=== PATIENT | female | born 1930 | race Caucasian/White ===

== ENCOUNTER 2017-07-01 23:31 | Inpatient (IN) | payer MEDICARE ==
[~2017-07-01] VITALS: Ht 157.5 cm; Wt 62.0 kg
[~2017-07-01 23:31] MED LIST: COUM2TAB PO; DIOV320T PO; ENOX60P SQ; GLUC250C5 PO; LABE100T2 PO; LEVO.05 PO; OXYC-360 PO; SPIRCAP INH; TAB-TAB PO; TYLE500T PO
[2017-07-01 23:45] VITALS: O2SAT 98
[2017-07-01] MEDS ORDERED: SODIUM CHLORIDE 0.9% FLUSH 10 ML FLUSH IVF PRN (23:45)
[2017-07-01] MEDS ORDERED: methylPREDNISolone SOD SUCC 125 MG/2 ML VIAL IV PUSH ONE (23:45)
--- NOTE | 2017-07-01 23:45 | PD ---
HPI Chief Complaint: Shortness of breath Time Seen by Provider: 23:39 Travel History International Travel<30 days: No Contact w/Intl Traveler<30days: No Traveled to known affect area: No History of Present Illness HPI 86-year-old female presents to the emergency department by private transportation after visiting an urgent care and identifying that she had low O2 saturation. Patient has history of COPD. Patient does not smoke cigarettes. Patient states that she felt perfectly well earlier in the week and until yesterday when she started noticing cough and congestion. Patient today noticed increased cough and congestion and increased shortness of breath. Patient denies chest pain. Patient denies lower extremity pain or swelling. Patient notes respiratory distress at rest as well as with exertion. No hemoptysis no hematemesis no coffee-ground emesis denies abdominal pain or back pain and no referred neck jaw shoulder arm pain. Patient states she does not use supplemental oxygen and does not have a rescue inhaler at home. No report of recent long distance travel or protracted bedrest or surgery. No history of clotting disorder. Prior history of breast cancer with right mastectomy. Patient noted in triage to have room air O2 saturations in the low 80s with work of breathing. PFSH Past Medical History Narrative Medical COPD, breast ca, endometrial ca htn, pe(2010); no tobacco use; nursing notes reviewed Arthritis: Yes Asthma: No Depression: Yes Heart Rhythm Problems: No Cancer: Yes (BREAST) Cardiovascular Problems: No High Cholesterol: No Chest Pain: No Congestive Heart Failure: No COPD: Yes Diabetes: No Endocrine: Yes Glaucoma: No Genitourinary: No Hepatitis: No Hiatal Hernia: No Hypertension: Yes Immune Disorder: No Musculoskeletal: Yes Neurologic: No Psychiatric: Yes Reproductive: No Respiratory: Yes (SOB COPD) Radiation Therapy: Yes (LAST YEAR 2009) Sleep Apnea: No Thyroid Disease: Yes (HYPOTHYROIDISM) Menopausal: Yes Past Surgical History Abdominal Surgery: No Cardiac Surgery: No Section: Yes Ear Surgery: No Endocrine Surgery: No Eye Surgery: Yes (ZINA CATARACT EXTRACTION) Genitourinary Surgery: No Gynecologic Surgery: Yes (C SECTION) Oral Surgery: No Pacemaker: No Thoracic Surgery: Yes (BILATERAL BREAST LUMPECTOMY) Other Surgery: Yes Social History Alcohol Use: Yes (WINE 1 OR 2 GLASSES) Tobacco Use: No Substance Use: No Allergies-Medications (Allergen,Severity, Reaction): Coded Allergies: allopurinol (Unverified Allergy, Severe, RASH; SKIN PEELING, 01/10/17) coconut (Unverified Allergy, Severe, RESP DISTRESS, 01/10/17) levothyroxine (Unverified Allergy, Severe, ALLERGIC TO "GENERIC' SYNTHROID , 01/10/17) levothyroxine sodium (Unverified Allergy, Severe, ALLERGIC TO "GENERIC' SYNTHROID, 01/10/17) penicillin G (Unverified Allergy, Severe, RASH, 01/10/17) tetanus toxoid, adsorbed (Unverified Allergy, Severe, 01/10/17) Uncoded Allergies: DILL (Allergy, Severe, 05/18/11) Reported Meds & Prescriptions Reported Meds & Active Scripts Active Reported Biotin 5 Mg Cap 5 Mg PO DAILY Clonidine 168 HR Patch (Clonidine HCl) 0.2 Mg/24 Hr Patch 1 Patch T-DERMAL Q7D Labetalol (Labetalol HCl) 100 Mg Tab 100 Mg PO DAILY Warfarin 2 Mg Tab 2 Mg PO DAILY Synthroid (Levothyroxine Sodium) 50 Mcg Tab 50 Mcg PO DAILY Spiriva Respimat Inh (Tiotropium Inh) 1.25 Mcg/Act Aero 2 Puff INH DAILY 1.25 mcg = 1 inhalation Diovan (Valsartan) 320 Mg Tab 320 Mg PO DAILY Review of Systems Except as stated in HPI: all other systems reviewed are Neg Physical Exam Narrative GENERAL: Thin frail elderly female in obvious respiratory distress his room air O2 saturation 81% placed transiently on nonrebreather mask transition to night nasal cannula while awaiting BiPAP placement SKIN: Warm and dry. HEAD: Normocephalic. EYES: No scleral icterus. No injection or drainage. NECK: Supple, trachea midline. No JVD or lymphadenopathy. CARDIOVASCULAR: Increased regular rate and rhythm without murmurs, gallops, or rubs. RESPIRATORY: Breath sounds equal bilaterally, diminished bilaterally with accessory muscle use. GASTROINTESTINAL: Abdomen soft, non-tender, nondistended. MUSCULOSKELETAL: No cyanosis, trace to 1+ bilateral ankle edema. BACK: Nontender without obvious deformity. No CVA tenderness. Data Data Last Documented VS Vital Signs Date Time Temp Pulse Resp B/P (MAP) Pulse Ox O2 Delivery O2 Flow Rate FiO2 07/02/17 01:10 98 Nasal Cannula 3.00 07/02/17 01:02 94 31 165/89 (114) 35 Orders Orders Complete Blood Count With Diff (07/01/17 23:39) Comprehensive Metabolic Panel (07/01/17 23:39) B-Type Natriuretic Peptide (07/01/17 23:39) Act Partial Throm Time (Ptt) (07/01/17 23:39) Prothrombin Time / Inr (Pt) (07/01/17 23:39) Magnesium (Mg) (07/01/17 23:39) Ckmb (Isoenzyme) Profile (07/01/17 23:39) Troponin I (07/01/17 23:39) Urinalysis - C+S If Indicated (07/01/17 23:39) Influenzae A/B Antigen (07/01/17 23:39) Blood Culture (07/01/17 23:39) Iv Access Insert/Monitor (07/01/17 23:39) Electrocardiogram (07/01/17 23:39) Ecg Monitoring (07/01/17 23:39) Oximetry (07/01/17 23:39) Oxygen Administration (07/01/17 23:39) Chest, Single Ap (07/01/17 23:39) Sodium Chloride 0.9% Flush (Ns Flush) (07/01/17 23:45) Methylprednisolone So Succ Inj (Solumedr (07/01/17 23:45) Albuterol-Ipratropium Neb (Duoneb Neb) (07/01/17 23:45) Resp Bipap / Cpap Non Invas Vt (07/01/17 ) Furosemide Inj (Lasix Inj) (07/02/17 01:30) CKMB (07/02/17 00:10) CKMB% (07/02/17 00:10) Aspirin Chew (Aspirin Chew) (07/02/17 01:45) Nitroglycerin 2% Oint (Nitroglycerin 2% (07/02/17 01:45) Labs Laboratory Tests Test 07/02/17 00:10 White Blood Count 12.1 TH/MM3 Red Blood Count 4.01 MIL/MM3 Hemoglobin 13.5 GM/DL Hematocrit 39.8 % Mean Corpuscular Volume 99.2 FL Mean Corpuscular Hemoglobin 33.6 PG Mean Corpuscular Hemoglobin Concent 33.9 % Red Cell Distribution Width 13.5 % Platelet Count 184 TH/MM3 Mean Platelet Volume 10.6 FL Neutrophils (%) (Auto) 95.0 % Lymphocytes (%) (Auto) 2.9 % Monocytes (%) (Auto) 2.0 % Eosinophils (%) (Auto) 0.0 % Basophils (%) (Auto) 0.1 % Neutrophils # (Auto) 11.5 TH/MM3 Lymphocytes # (Auto) 0.4 TH/MM3 Monocytes # (Auto) 0.2 TH/MM3 Eosinophils # (Auto) 0.0 TH/MM3 Basophils # (Auto) 0.0 TH/MM3 CBC Comment AUTO DIFF Prothrombin Time 15.0 SEC Prothromb Time International Ratio 1.5 RATIO Activated Partial Thromboplast Time 32.4 SEC Blood Urea Nitrogen 30 MG/DL Creatinine 1.90 MG/DL Random Glucose 230 MG/DL Total Protein 7.0 GM/DL Albumin 3.5 GM/DL Calcium Level 8.5 MG/DL Magnesium Level 2.2 MG/DL Alkaline Phosphatase 71 U/L Aspartate Amino Transf (AST/SGOT) 31 U/L Alanine Aminotransferase (ALT/SGPT) 21 U/L Total Bilirubin 0.7 MG/DL Sodium Level 135 MEQ/L Potassium Level 5.1 MEQ/L Chloride Level 100 MEQ/L Carbon Dioxide Level 22.7 MEQ/L Anion Gap 12 MEQ/L Estimat Glomerular Filtration Rate 25 ML/MIN Total Creatine Kinase 112 U/L Troponin I 1.89 NG/ML B-Type Natriuretic Peptide 3291 PG/ML [facility] Medical Decision Making Medical Screen Exam Complete: Yes Emergency Medical Condition: Yes Medical Record Reviewed: Yes Interpretation(s) EKG: Sinus tachycardia rate 110 rare PVC nonspecific T-wave changes no acute ST elevation artifact is present at baseline Vital Signs Date Time Temp Pulse Resp B/P (MAP) Pulse Ox O2 Delivery O2 Flow Rate FiO2 07/02/17 01:02 94 31 165/89 (114) 100 BiPAP 35 07/01/17 23:55 96 BiPAP 35 07/01/17 23:55 35 91 Nasal Cannula 4.00 07/01/17 23:48 104 35 81 07/01/17 23:45 98 35 CBC & BMP Diagram 07/02/17 00:10 Albumin 3.5, Calcium Level 8.5, Magnesium Level 2.2, Aspartate Amino Transf (AST /SGOT) 31, Alanine Aminotransferase (ALT/SGPT) 21 troponin I: 1.89, elevated BNP: 3291, elevated; ck: 112, wnl, mb: 6.3, elevated with mb%: 5.6% elevated Differential Diagnosis Acute respiratory distress, hypoxemia, exacerbation COPD, CHF, pneumonia, Narrative Course Patient placed on manager cardiac cath with continuous pulse oximetry with supplemental oxygen;DuoNeb updrafts 3 ordered along with Solu-Medrol and BiPAP patient placed on manager cardiac cath with continuous pulse oximetry and supplemental oxygen awaiting placement of BiPAP support; Solu-Medrol, DuoNeb updrafts ordered. At 1:27 AM patient is symptomatically improved after updraft treatments has been taken off of BiPAP on supplemental oxygen at this time tolerating nasal cannula well; cxr cm with bibasilar airspace changes; lasix ordered 1:45 AM patient is informed of abnormal troponin and BMP results denies any shortness of breath chest discomfort or choking at this time. Patient relays at this time that last evening/Monday evening she did have a choking sensation overnight which made it difficult for her to sleep but this resolved no report of sweats nausea vomiting or referred neck jaw neck shoulder arm pain or abdominal pain with episode of choking. Patient states she will actually was not choking just had that sensation. Patient has had a cold 2 days and states she continues to have cold symptoms today but presently has no choking sensation of chest pain and no shortness of breath just feels a little congested in her sinuses. Patient denies any fever or chills. Patient has been informed that her cardiac enzymes and BMP is elevated consistent with a NST OTIS and congestive heart failure as well as exacerbation of her COPD and will require admission. Patient has not seen a lab support tech in over 5 years and is never had a stress test or cardiac catheterization; she just saw her plsql developer within the past several weeks and was told everything was 'okay' and saw her primary care provider and was informed that everything was 'okay' according to the patient. Patient is continued on Coumadin therapy due to prior pulmonary embolism approximately 5 years ago. Physician Communication Physician Communication call placed to [facility] service ---discussed with Dr Mcclain Diagnosis Primary Impression: Non-ST elevation GA (NSTEMI) Additional Impressions: CHF (congestive heart failure) Acute exacerbation of COPD with asthma Admitting Information Admitting Physician Requests: Admit Keesha Napier MD Jul 01, 2017 23:45
[2017-07-01 23:48] VITALS: PULSE 104; RESP 35; O2SAT 81
[2017-07-02] VITALS (29 sets, daily range): BP systolic 108–183; BP diastolic 63–115; PULSE 77–136; RESP 16–33; TEMP 97.4–99.1; O2SAT 89–100
[2017-07-02] MEDS ORDERED: TIOT1AER2 INH (00:08)
[2017-07-02] MEDS ORDERED: LEVO.05 PO (00:08)
[2017-07-02] MEDS ORDERED: LABE100T2 PO (00:08)
[2017-07-02] MEDS ORDERED: DIOV320T PO (00:08)
[2017-07-02] MEDS ORDERED: CLON0.2D T-DERMAL (00:08)
[2017-07-02] MEDS ORDERED: WARF4TAB51 PO (00:08)
[2017-07-02] MEDS ORDERED: BIOTCAP PO (00:08)
[2017-07-02] MEDS: RESP: ALBUTEROL 2.5 MG/IPRATROPIUM 0.5 MG NEB (SCH) INH ×4 (00:30→19:49)
--- NOTE | 2017-07-02 00:34 | RADRPT ---
EXAM DATE/TIME: 07/02/2017 00:03 [facility] COMPARISON: CHEST PA & LAT, September 25, 2010, 8:39. EXTERNAL COMPARISON : [facility] [place] INDICATIONS : Shortness of breath. MEDICAL HISTORY : Chronic obstructive pulmonary disease. SURGICAL HISTORY : None. ENCOUNTER: Initial ACUITY: 1 day PAIN SCORE: 0/10 LOCATION: Bilateral chest FINDINGS: Cardiomegaly. There are no effusions. There is aortic calcification and patchy bilateral basilar airs pace disease. CONCLUSION: Basilar airspace disease is noted. Ciro Lau MD on July 02, 2017 at 0:32 Board Certified Radiologist. This report was verified electronically.
[2017-07-02 00:59] LABS: AUTOMATED NEUTROPHIL # 11.5 TH/MM3 (1.8-7.7); BASOPHIL % 0.1 % (0.0-2.0); HEMATOCRIT 39.8 % (35.0-46.0); HEMOGLOBIN 13.5 GM/DL (11.6-15.3); LYMPH % 2.9 % (9.0-44.0); LYMPHOCYTE # 0.4 TH/MM3 (1.0-4.8); MEAN CELL VOLUME 99.2 FL (80.0-100.0); MEAN CORPUSCULAR HEMOGLOBIN 33.6 PG (27.0-34.0); MEAN CORPUSCULAR HGB CONC 33.9 % (32.0-36.0); MEAN PLATELET VOLUME 10.6 FL (7.0-11.0); MONOCYTE # 0.2 TH/MM3 (0-0.9); PLATELET COUNT 184 TH/MM3 (150-450); RED BLOOD COUNT 4.01 MIL/MM3 (4.00-5.30); RED CELL DISTRIBUTION WIDTH 13.5 % (11.6-17.2); WHITE BLOOD COUNT 12.1 TH/MM3 (4.0-11.0)
[2017-07-02 01:08] LABS: INTERNATIONAL NORMALIZED RATIO 1.5 RATIO
[2017-07-02 01:26] LABS: ALBUMIN 3.5 GM/DL (3.4-5.0); ALT (GPT) 21 U/L (10-53); AST (GOT) 31 U/L (15-37); BICARBONATE 22.7 MEQ/L (21.0-32.0); BLOOD UREA NITROGEN 30 MG/DL (7-18); CALCIUM 8.5 MG/DL (8.5-10.1); CHLORIDE 100 MEQ/L (98-107); GLOMERULAR FILTRATION RATE 25 ML/MIN (>89); GLUCOSE,RANDOM 230 MG/DL (74-106); MAGNESIUM 2.2 MG/DL (1.5-2.5); SODIUM (NA) 135 MEQ/L (136-145)
[2017-07-02 01:30] LABS: ALKALINE PHOSPHATASE 71 U/L (45-117); TOTAL BILIRUBIN ADULT 0.7 MG/DL (0.2-1.0)
[2017-07-02] MEDS ORDERED: FUROSEMIDE 40 MG/4 ML VIAL IV PUSH ONE (01:30)
[2017-07-02 01:38] LABS: TROPONIN I 1.89 NG/ML (0.02-0.05)
[2017-07-02] MEDS ORDERED: NITROGLYCERIN 2% OINT 1 GM PACKET TOPICAL ONE (01:45)
[2017-07-02] MEDS ORDERED: ASPIRIN 81 MG CHEW TAB CHEW ONE (01:45)
[2017-07-02] MEDS ORDERED: HEPARIN SODIUM - IV 10,000 UNITS/10 ML VIAL IV PUSH ONE (02:00)
[2017-07-02] MEDS ORDERED: NALOXONE HCL 0.4 MG/ML AMP IV PUSH PRN (02:00)
[2017-07-02] MEDS ORDERED: BISACODYL 10 MG SUPP RECTAL PRN (02:00)
[2017-07-02] MEDS ORDERED: LACTULOSE SYRUP 20 GM/30 ML CUP PO PRN (02:00)
[2017-07-02] MEDS ORDERED: SODIUM CHLORIDE 0.9% FLUSH 10 ML FLUSH IV FLUSH PRN (02:00)
[2017-07-02] MEDS ORDERED: ONDANSETRON HCL 4 MG/2 ML VIAL IVP PRN (02:00)
[2017-07-02] MEDS ORDERED: MAGNESIUM HYDROXIDE SUSP 30 ML CUP PO PRN (02:00)
[2017-07-02] MEDS ORDERED: SENNOSIDES 8.6 MG TAB PO PRN (02:00)
[2017-07-02] MEDS ORDERED: ACETAMINOPHEN 325 MG TAB PO PRN (02:00)
[2017-07-02] MEDS: HEPARIN-D5W 25,000 U/250 ML 250 ML IV PRN (02:43)
--- NOTE | 2017-07-02 02:56 | HHI.HP ---
HPI Service [facility] Primary Care Physician Tayo Messer M.D. Admission Diagnosis nstemi; chf; exac copd Diagnoses: Travel History International Travel<30 Days: No Contact w/Intl Traveler <30 Da: No Traveled to Known Affected Are: No History of Present Illness 86-year-old female with past medical history significant for COPD, hypertension , history of PE in 2010, history of breast cancer and current stage IA endometrial cancer presents to the emergency department for evaluation of shortness of breath. The patient reports that she caught a cold on Monday and has been having difficulty breathing since that time. Today she felt her shortness of breath worsened to the point where she couldn't breathe. She also felt weak and dizzy., The patient reports she had a choking sensation that awoken her from sleep. She denies any associated chest pain. Has a nonproductive cough. Positive bilateral lower extremity edema which is chronic. Review of Systems Except as stated in HPI: all other systems reviewed are Neg Past Family Social History Past Medical History COPD Hypertension PE in 2010, anticoagulated on Coumadin History of breast cancer History of endometrial cancer Past Surgical History Bilateral cataracts Hysterectomy Right mastectomy 2 Reported Medications Reported Meds & Active Scripts Active Reported Biotin 5 Mg Cap 5 Mg PO DAILY Clonidine 168 HR Patch (Clonidine HCl) 0.2 Mg/24 Hr Patch 1 Patch T-DERMAL Q7D Labetalol (Labetalol HCl) 100 Mg Tab 100 Mg PO DAILY Warfarin 2 Mg Tab 2 Mg PO DAILY Synthroid (Levothyroxine Sodium) 50 Mcg Tab 50 Mcg PO DAILY Spiriva Respimat Inh (Tiotropium Inh) 1.25 Mcg/Act Aero 2 Puff INH DAILY 1.25 mcg = 1 inhalation Diovan (Valsartan) 320 Mg Tab 320 Mg PO DAILY Allergies: Coded Allergies: allopurinol (Unverified Allergy, Severe, RASH; SKIN PEELING, 01/10/17) coconut (Unverified Allergy, Severe, RESP DISTRESS, 01/10/17) levothyroxine (Unverified Allergy, Severe, ALLERGIC TO "GENERIC' SYNTHROID , 01/10/17) levothyroxine sodium (Unverified Allergy, Severe, ALLERGIC TO "GENERIC' SYNTHROID, 01/10/17) penicillin G (Unverified Allergy, Severe, RASH, 01/10/17) tetanus toxoid, adsorbed (Unverified Allergy, Severe, 01/10/17) Uncoded Allergies: DILL (Allergy, Severe, 05/18/11) Family History Father with CAD Social History Occasional alcohol. Remote history of smoking. Denies illicit drugs. Physical Exam Vital Signs Vital Signs Date Time Temp Pulse Resp B/P (MAP) Pulse Ox O2 Delivery O2 Flow Rate FiO2 07/02/17 01:10 98 Nasal Cannula 3.00 07/02/17 01:02 94 31 165/89 (114) 100 BiPAP 35 07/01/17 23:55 96 BiPAP 35 07/01/17 23:55 35 91 Nasal Cannula 4.00 07/01/17 23:48 104 35 81 07/01/17 23:45 98 35 Physical Exam GENERAL: female lying in bed SKIN: No rashes, ecchymoses or lesions. Cool and dry. HEAD: Atraumatic. Normocephalic. No temporal or scalp tenderness. EYES: Pupils equal round and reactive. Extraocular motions intact. No scleral icterus. No injection or drainage. ENT: Nose without bleeding, purulent drainage or septal hematoma. Throat without erythema, tonsillar hypertrophy or exudate. Uvula midline. Airway patent. NECK: Trachea midline. No JVD or lymphadenopathy. Supple, nontender, no meningeal signs. CARDIOVASCULAR: Regular rate and rhythm without murmurs, gallops, or rubs. RESPIRATORY: Crackles and wheezes on the left GASTROINTESTINAL: Abdomen soft, non-tender, nondistended. No hepato-splenomegaly , or palpable masses. No guarding. MUSCULOSKELETAL: Extremities without clubbing, cyanosis, or edema. No joint tenderness, effusion, or edema noted. No calf tenderness. NEUROLOGICAL: Awake and alert. Cranial nerves II through XII intact. Motor and sensory grossly within normal limits. Normal speech. Laboratory Laboratory Tests Test 07/02/17 00:10 White Blood Count 12.1 Red Blood Count 4.01 Hemoglobin 13.5 Hematocrit 39.8 Mean Corpuscular Volume 99.2 Mean Corpuscular Hemoglobin 33.6 Mean Corpuscular Hemoglobin Concent 33.9 Red Cell Distribution Width 13.5 Platelet Count 184 Mean Platelet Volume 10.6 Neutrophils (%) (Auto) 95.0 Lymphocytes (%) (Auto) 2.9 Monocytes (%) (Auto) 2.0 Eosinophils (%) (Auto) 0.0 Basophils (%) (Auto) 0.1 Neutrophils # (Auto) 11.5 Lymphocytes # (Auto) 0.4 Monocytes # (Auto) 0.2 Eosinophils # (Auto) 0.0 Basophils # (Auto) 0.0 CBC Comment AUTO DIFF Differential Comment AUTO DIFF CONFIRMED Platelet Estimate NORMAL Platelet Morphology Comment CLUMPED Prothrombin Time 15.0 Prothromb Time International Ratio 1.5 Activated Partial Thromboplast Time 32.4 Blood Urea Nitrogen 30 Creatinine 1.90 Random Glucose 230 Total Protein 7.0 Albumin 3.5 Calcium Level 8.5 Magnesium Level 2.2 Alkaline Phosphatase 71 Aspartate Amino Transf (AST/SGOT) 31 Alanine Aminotransferase (ALT/SGPT) 21 Total Bilirubin 0.7 Sodium Level 135 Potassium Level 5.1 Chloride Level 100 Carbon Dioxide Level 22.7 Anion Gap 12 Estimat Glomerular Filtration Rate 25 Total Creatine Kinase 112 Creatine Kinase MB 6.3 Troponin I 1.89 B-Type Natriuretic Peptide 3291 Date/Time Source Procedure Growth Status 07/02/17 00:15 Blood Peripheral Aerobic Blood Culture Pending Received 07/02/17 00:15 Blood Peripheral Anaerobic Blood Culture Pending Received 07/02/17 01:30 Nasal Washing Influenza Types A,B Antigen (JOSE) - Final NEGATIVE FOR FLU A AND B ANTIGEN.... Complete Result Diagram: 07/02/17 0010 07/02/17 0010 Caprini VTE Risk Assessment Caprini VTE Risk Assessment: Mod/High Risk (score >= 2) Caprini Risk Assessment Model Point Value = 1 Point Value = 2 Point Value = 3 Point Value = 5 Age 41-60 Minor surgery BMI > 25 kg/m2 Swollen legs Varicose veins or History of unexplained or recurrent spontaneous Oral contraceptives or hormone replacement Sepsis (< 1 month) Serious lung disease, including pneumonia (< 1 month) Abnormal pulmonary function Acute myocardial infarction Congestive heart failure (< 1 month) History of inflammatory bowel disease Medical patient at bed rest Age 61-74 Arthroscopic surgery Major open surgery (> 45 min) Laparoscopic surgery (> 45 min) Malignancy Confined to bed (> 72 hours) Immobilizing plaster cast Central venous access Age >= 75 History of VTE Family history of VTE Factor V Leiden Prothrombin [id number] Lupus anticoagulant Anticardiolipin antibodies Elevated serum homocysteine Heparin-induced thrombocytopenia Other congenital or acquired thrombophilia Stroke (< 1 month) Elective arthroplasty Hip, pelvis, or leg fracture Acute spinal cord injury (< 1 month) Prophylaxis Regimen Total Risk Factor Score Risk Level Prophylaxis Regimen 0-1 Low Early ambulation 2 Moderate Order ONE of the following: *Sequential Compression Device (SCD) *Heparin 5000 units SQ BID 3-4 Higher Order ONE of the following medications: *Heparin 5000 units SQ TID *Enoxaparin/Lovenox 40 mg SQ daily (WT < 150 kg, CrCl > 30 mL/min) *Enoxaparin/Lovenox 30 mg SQ daily (WT < 150 kg, CrCl > 10-29 mL/min) *Enoxaparin/Lovenox 30 mg SQ BID (WT < 150 kg, CrCl > 30 mL/min) AND/OR *Sequential Compression Device (SCD) 5 or more Highest Order ONE of the following medications: *Heparin 5000 units SQ TID (Preferred with Epidurals) *Enoxaparin/Lovenox 40 mg SQ daily (WT < 150 kg, CrCl > 30 mL/min) *Enoxaparin/Lovenox 30 mg SQ daily (WT < 150 kg, CrCl > 10-29 mL/min) *Enoxaparin/Lovenox 30 mg SQ BID (WT < 150 kg, CrCl > 30 mL/min) AND *Sequential Compression Device (SCD) Assessment and Plan Assessment and Plan Assessment/plan: 1. NSTEMI Troponin 1.89 EKG showed sinus tachycardia, pulse 109, no ST segment elevations or depressions , personally reviewed Heparin drip Cardiology consulted, appreciate recommendations 2. CHF exacerbation BNP 3291 Positive lower extremity edema/SOB Supplemental O2 prn IV Lasix 3. History of PE Patient anticoagulated on Coumadin, INR currently subtherapeutic at 1.5 Patient reports she has not taken her Coumadin in 3 days because her INR was 6 on Monday Heparin drip Restart Coumadin once cleared by cardiology 4. Hypertension Continue home medications 5. COPD Patient with tightness and wheezes on physical exam DuoNeb's IV steroids 6. CKD Creatinine 1.90, baseline 1.7 Monitor renal function FEN NPO Electrolytes: monitor and replete Heparin ggt Physician Certification 2 Midnight Certification Type: Admission for Inpatient Services Order for Inpatient Services The services are ordered in accordance with Medicare regulations or non- Medicare payer requirements, as applicable. In the case of services not specified as inpatient-only, they are appropriately provided as inpatient services in accordance with the 2-midnight benchmark. Estimated LOS (days): 2 2 days is the estimated time the patient will need to remain in the hospital, assuming treatment plan goals are met and no additional complications. Post-Hospital Plan: Not yet determined Selene Mcclain MD Jul 02, 2017 02:56
[2017-07-02 05:47] LABS: BILIRUBIN, URINE NEG (NEG); BLOOD, URINE TRACE (NEG); GLUCOSE,URINE NEG (NEG); HYALINE CAST, URINE 1 /lpf (RARE); KETONE, URINE NEG (NEG); MUCUS URINE FEW /lpf (OCC); NITRITE,URINE NEG (NEG); SQUAMOUS EPITHELIAL CELL URINE 7 /hpf (0-5); URINE COLOR YELLOW (YELLW/STRAW); URINE LEUKOCYTE ESTERASE LARGE (NEG)
[2017-07-02] MEDS: LEVOTHYROXINE SODIUM 50 MCG TAB PO SCH (06:24)
[2017-07-02] MEDS: cloNIDine HCL 0.1 MG TAB PO PRN (06:51)
[2017-07-02] MEDS ORDERED: LORazepam 2 MG/ML VIAL IV PUSH ONE (07:15)
[2017-07-02] MEDS ORDERED: LABETALOL HCL 100 MG TAB PO SCH ×2 (07:15→09:00)
[2017-07-02] MEDS ORDERED: LABETALOL HCL 100 MG/20 ML VIAL IV PUSH ONE (07:15)
[2017-07-02] MEDS ORDERED: FUROSEMIDE 40 MG/4 ML VIAL IV PUSH SCH ×2 (07:15→09:00)
[2017-07-02] MEDS: methylPREDNISolone SOD SUCC 40 MG/1 ML VIAL IV PUSH SCH ×3 (07:19→20:37)
[2017-07-02] MEDS ORDERED: ETOMIDATE 40 MG/20 ML VIAL ONE (08:06)
[2017-07-02] MEDS ORDERED: MIDAZOLAM HCL 5 MG/ML VIAL (1 ML) ONE ×2 (08:26→09:44)
[2017-07-02 08:55] LABS: BASOPHIL % 0.1 % (0.0-2.0); HEMATOCRIT 41.5 % (35.0-46.0); HEMOGLOBIN 13.9 GM/DL (11.6-15.3); LYMPH % 4.3 % (9.0-44.0); LYMPHOCYTE # 0.5 TH/MM3 (1.0-4.8); MEAN CELL VOLUME 99.7 FL (80.0-100.0); MEAN CORPUSCULAR HEMOGLOBIN 33.3 PG (27.0-34.0); MEAN CORPUSCULAR HGB CONC 33.4 % (32.0-36.0); MEAN PLATELET VOLUME 10.2 FL (7.0-11.0); MONO % 1.7 % (0.0-8.0); MONOCYTE # 0.2 TH/MM3 (0-0.9); NEUT % 93.9 % (16.0-70.0); PLATELET COUNT 239 TH/MM3 (150-450); RED BLOOD COUNT 4.17 MIL/MM3 (4.00-5.30); RED CELL DISTRIBUTION WIDTH 13.7 % (11.6-17.2); WHITE BLOOD COUNT 12.7 TH/MM3 (4.0-11.0)
[2017-07-02] MEDS ORDERED: MIDAZOLAM HCL 2 MG/2 ML VIAL ONE (08:58)
--- NOTE | 2017-07-02 08:59 | RADRPT ---
EXAM DATE/TIME: 07/02/2017 08:47 [facility] COMPARISON: No previous studies available for comparison. INDICATIONS : Stroke alert. RADIATION DOSE: 56.35 CTDIvol (mGy) This report was called by Jerardo Romo at 8: 56am MEDICAL HISTORY : Non-responsive. SURGICAL HISTORY : Non-responsive. ENCOUNTER: Initial ACUITY: 1 day PAIN SCALE: Non-responsive LOCATION: Bilateral head TECHNIQUE: Multiple contiguous axial images were obtained of the head. Using automated exposure control and adj ustment of the mA and/or kV according to patient size, radiation dose was kept as low as reasonably a chievable to obtain optimal diagnostic quality images. DICOM format image data is available electro nically for review and comparison. FINDINGS: CEREBRUM: Lacunar infarct right basal ganglia indeterminate age. The ventricles are normal for age. No evidenc e of midline shift, mass lesion, hemorrhage or acute infarction. No extra-axial fluid collections ar e seen. POSTERIOR FOSSA: The cerebellum and brainstem are intact. The 4th ventricle is midline. The cerebellopontine angle i s unremarkable. EXTRACRANIAL: The visualized portion of the orbits is intact. Endotracheal tube noted. SKULL: The calvaria is intact. No evidence of skull fracture. CONCLUSION: Right basal ganglia lacunar infarct, indeterminate age. Otherwise unremarkable CT brain. Keith Kurtz MD on July 02, 2017 at 8:53 Board Certified Radiologist. This report was verified electronically.
[2017-07-02] MEDS ORDERED: VALSARTAN 160 MG TAB PO SCH (09:00)
[2017-07-02] MEDS ORDERED: methylPREDNISolone SOD SUCC 40 MG/1 ML VIAL IV PUSH SCH (09:00)
[2017-07-02 09:07] LABS: TROPONIN I 1.26 NG/ML (0.02-0.05)
[2017-07-02 09:08] LABS: TROPONIN I 1.31 NG/ML (0.02-0.05)
[2017-07-02 09:17] LABS: INTERNATIONAL NORMALIZED RATIO 1.5 RATIO; PROTHROMBIN TIME - PATIENT 15.3 SEC (9.8-11.6)
[2017-07-02] MEDS ORDERED: SODIUM PHOSPHATE INJ 30 MMOL in SODIUM CHLOR 0.9% 250 ML INJ 240 ML IV PRN (10:00)
[2017-07-02] MEDS ORDERED: MAGNESIUM SULFATE INJ 2 GM in SODIUM CHLORIDE 0.9% INJ 96 ML IV PRN (10:00)
[2017-07-02] MEDS ORDERED: POTASSIUM PHOSPHATE INJ 30 MMOL in SODIUM CHLOR 0.9% 250 ML INJ 250 ML IV PRN (10:00)
[2017-07-02] MEDS ORDERED: RESP: ALBUTEROL 2.5 MG/IPRATROPIUM 0.5 MG NEB (PRN) INH (10:00)
[2017-07-02] MEDS ORDERED: POTASSIUM PHOSPHATE MONOBASIC 500 MG TAB PO/TUBE PRN (10:00)
[2017-07-02] MEDS ORDERED: MAGNESIUM OXIDE 400 MG TAB PO PRN (10:00)
[2017-07-02] MEDS ORDERED: POTASSIUM CHLOR 40 MEQ PREMIX 100 ML IV PRN ×2 (10:00)
[2017-07-02] MEDS ORDERED: POTASSIUM CHLORIDE 25 MEQ EFFERVESCENT TAB PO PRN (10:00)
[2017-07-02] MEDS ORDERED: MAGNESIUM SULFATE INJ 4 GM in SODIUM CHLORIDE 0.9% INJ 92 ML IV PRN (10:00)
[2017-07-02] MEDS ORDERED: POTASSIUM CHLOR 20 MEQ PREMIX 100 ML IV PRN ×2 (10:00)
[2017-07-02] MEDS ORDERED: POTASSIUM PHOSPHATE MONOBASIC 500 MG TAB PO PRN (10:00)
--- NOTE | 2017-07-02 10:06 | RADRPT ---
EXAM DATE/TIME: 07/02/2017 09:06 [facility] COMPARISON: CT BRAIN W/O CONTRAST, July 02, 2017, 8:47. INDICATIONS : Stroke alert. MEDICAL HISTORY : Carcinoma, breast. Hypertension. SURGICAL HISTORY : Mastectomy, right. Hysterectomy. ENCOUNTER: Initial ACUITY: 1 day PAIN SCORE: 0/10 LOCATION: cranial TECHNIQUE: Multiplanar, multisequence MRI of the brain was performed without contrast. FINDINGS: CEREBRUM: The ventricles are normal for age. Old lacunar infarct right basal ganglia. No evidence of midline sh ift, mass lesion, hemorrhage or acute infarction. No extraaxial fluid collections are seen. The pit uitary gland and suprasellar cistern are normal in configuration. Minimal T2 signal the left thalamus . WHITE MATTER: Scattered foci of bright T2 signal abnormalities are seen in the white matter. POSTERIOR FOSSA: The cerebellum and brainstem are intact. The 4th ventricle is midline. The cerebellopontine angle is unremarkable. The cerebellar tonsils are normal in position. DIFFUSION IMAGING: No focal areas of restricted diffusion are seen. No evidence of acute infarction. EXTRACRANIAL: The visualized portions of the orbits and paranasal sinuses are unremarkable. CONCLUSION: 1. Old right-sided lacunar infarct versus prominent vascular channel. 2. 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 Keith Kurtz MD on July 02, 2017 at 10:01 Board Certified Radiologist. This report was verified electronically.
--- NOTE | 2017-07-02 10:09 | PD.CONS ---
[facility] Service Critical Care Medicine Consult Requested By Dr. Johnson Reason for Consult altered mental status. Primary Care Physician Tayo Messer M.D. History of Present Illness This is an 86-year-old female with a history of breast cancer status post right mastectomy, PE in 2010, who presented overnight with shortness of breath was found to have an elevated troponin at 1.89, BNP of 3291, creatinine 1.9, sodium 136, WBCs 12,000. She was admitted for workup of her shortness of breath, possible heart failure. To my knowledge and brief review of medical records she does not have a history of heart failure. This morning she had sudden acute change in mental status. Stroke alert was called. At the same time, should increasing oxygen requirement. When I evaluated the patient, she was obtunded with agonal respirations. I emergently intubated patient. We went down for stat CT head which was negative for acute bleed. We then proceeded for MRI/MRA of the brain. I did perform + critical care ultrasound which demonstrated severe left ventricular systolic dysfunction, preserved RV function , no pericardial effusion, dilated IVC without respiratory variation. The patient does have a history of prior PE, is currently on a heparin drip for possible NSTEMI, given her preserved RV function, is unlikely that massive PE has caused her acute decline. Given her elevated creatinine, we will avoid pulmonary angiogram at this time. Due to the patient's critical condition, no additional information is available from her. Due to the emergent nature of the consult, a complete review of the medical record was unavailable to me. Review of Systems ROS Limitations: Clinical Condition, Intubated, Altered Mental Status Past Family Social History Allergies: Coded Allergies: allopurinol (Unverified Allergy, Severe, RASH; SKIN PEELING, 01/10/17) coconut (Unverified Allergy, Severe, RESP DISTRESS, 01/10/17) levothyroxine (Unverified Allergy, Severe, ALLERGIC TO "GENERIC' SYNTHROID , 01/10/17) levothyroxine sodium (Unverified Allergy, Severe, ALLERGIC TO "GENERIC' SYNTHROID, 01/10/17) penicillin G (Unverified Allergy, Severe, RASH, 01/10/17) tetanus toxoid, adsorbed (Unverified Allergy, Severe, 01/10/17) Uncoded Allergies: DILL (Allergy, Severe, 05/18/11) Past Medical History Unobtainable from the patient due to her clinical condition. Per chart review: COPD Hypertension PE in 2010, anticoagulated on Coumadin History of breast cancer History of endometrial cancer Past Surgical History Unobtainable from patient due to her clinical condition. Per chart review: Bilateral cataracts Hysterectomy Right mastectomy 2 Reported Medications Unobtainable from the patient did clinical condition. Per chart review: Biotin 5 Mg Cap 5 Mg PO DAILY Clonidine 168 HR Patch (Clonidine HCl) 0.2 Mg/24 Hr Patch 1 Patch T-DERMAL Q7D Labetalol (Labetalol HCl) 100 Mg Tab 100 Mg PO DAILY Warfarin 2 Mg Tab 2 Mg PO DAILY Synthroid (Levothyroxine Sodium) 50 Mcg Tab 50 Mcg PO DAILY Spiriva Respimat Inh (Tiotropium Inh) 1.25 Mcg/Act Aero 2 Puff INH DAILY 1.25 mcg = 1 inhalation Diovan (Valsartan) 320 Mg Tab 320 Mg PO DAILY Active Ordered Medications See MAR Family History Unobtainable from patient due to her clinical condition. Per chart review: Father with CAD Social History Unavailable from the patient due to clinical condition. Per chart review: Occasional alcohol. Remote history of smoking. Denies illicit drugs. Physical Exam Vital Signs Vital Signs Date Time Temp Pulse Resp B/P (MAP) Pulse Ox O2 Delivery O2 Flow Rate FiO2 07/02/17 06:29 110 07/02/17 05:00 98.4 93 22 180/93 (122) 97 07/02/17 05:00 93 07/02/17 04:40 07/02/17 04:00 81 31 163/82 (109) 97 Nasal Cannula 3.00 07/02/17 03:00 80 33 162/85 (110) 98 Nasal Cannula 3.00 07/02/17 02:00 78 32 146/78 (100) 100 BiPAP 35 07/02/17 01:10 98 Nasal Cannula 3.00 07/02/17 01:02 94 31 165/89 (114) 100 BiPAP 35 07/01/17 23:55 96 BiPAP 35 07/01/17 23:55 35 91 Nasal Cannula 4.00 07/01/17 23:48 104 35 81 07/01/17 23:45 98 35 Physical Exam GENERAL: Elderly female, in severe distress, lying in bed, agonal respirations, obtunded HEENT: Normocephalic. Atraumatic. Pupils equal, round, reactive, conjugate. Mucous membranes are dry NECK: Trachea is midline. There is JVD evident above the level of the mandible CHEST: Labored, agonal, severe distress. Nonrebreather in place, SPO2 88% CARDIOVASCULAR: Normal rate, regular rhythm. Appears sinus by telemetry ABDOMEN: Soft, nontender, nondistended. No guarding. There appears to be soft ventral hernia without evidence of incarceration MUSCULOSKELETAL: Pulses 2+. No peripheral edema. Extremities are cool and poorly perfused NEUROLOGICAL: RASS -4. Agonal. Obtunded. Laboratory Laboratory Tests Test 07/02/17 00:10 07/02/17 05:15 07/02/17 06:50 07/02/17 07:30 White Blood Count 12.1 Red Blood Count 4.01 Hemoglobin 13.5 Hematocrit 39.8 Mean Corpuscular Volume 99.2 Mean Corpuscular Hemoglobin 33.6 Mean Corpuscular Hemoglobin Concent 33.9 Red Cell Distribution Width 13.5 Platelet Count 184 Mean Platelet Volume 10.6 Neutrophils (%) (Auto) 95.0 Lymphocytes (%) (Auto) 2.9 Monocytes (%) (Auto) 2.0 Eosinophils (%) (Auto) 0.0 Basophils (%) (Auto) 0.1 Neutrophils # (Auto) 11.5 Lymphocytes # (Auto) 0.4 Monocytes # (Auto) 0.2 Eosinophils # (Auto) 0.0 Basophils # (Auto) 0.0 CBC Comment AUTO DIFF Differential Comment AUTO DIFF CONFIRMED Platelet Estimate NORMAL Platelet Morphology Comment CLUMPED Prothrombin Time 15.0 Prothromb Time International Ratio 1.5 Activated Partial Thromboplast Time 32.4 Blood Urea Nitrogen 30 Creatinine 1.90 Random Glucose 230 Total Protein 7.0 Albumin 3.5 Calcium Level 8.5 Magnesium Level 2.2 Alkaline Phosphatase 71 Aspartate Amino Transf (AST/SGOT) 31 Alanine Aminotransferase (ALT/SGPT) 21 Total Bilirubin 0.7 Sodium Level 135 Potassium Level 5.1 Chloride Level 100 Carbon Dioxide Level 22.7 Anion Gap 12 Estimat Glomerular Filtration Rate 25 Total Creatine Kinase 112 120 Creatine Kinase MB 6.3 Troponin I 1.89 1.31 B-Type Natriuretic Peptide 3291 Urine Color YELLOW Urine Turbidity HAZY Urine pH 6.0 Urine Specific Gary 1.010 Urine Protein TRACE Urine Glucose (UA) NEG Urine Ketones NEG Urine Occult Blood TRACE Urine Nitrite NEG Urine Bilirubin NEG Urine Urobilinogen LESS THAN 2.0 Urine Leukocyte Esterase LARGE Urine RBC 3 Urine WBC 38 Urine Squamous Epithelial Cells 7 Urine Hyaline Casts 1 Urine Mucus FEW Microscopic Urinalysis Comment CULTURE INDICATED Blood Gas Puncture Site RT RADIAL Blood Gas Patient Temperature 98.6 Blood Gas HCO3 20 Blood Gas Base Excess -6.2 Blood Gas Oxygen Saturation 96 Arterial Blood pH 7.22 Arterial Blood Partial Pressure CO2 52 Arterial Blood Partial Pressure O2 124 Arterial Blood Oxygen Content 19.5 Arterial Blood Carboxyhemoglobin 0.4 Arterial Blood Methemoglobin 1.2 Blood Gas Hemoglobin 14.3 Oxygen Delivery Device SIMPLE MASK Blood Gas Liter Flow 10 Blood Gas Inspired Oxygen 50 Test 07/02/17 08:03 White Blood Count 12.7 Red Blood Count 4.17 Hemoglobin 13.9 Bedside Hemoglobin 13.6 Hematocrit 41.5 Bedside Hematocrit 40.0 Mean Corpuscular Volume 99.7 Mean Corpuscular Hemoglobin 33.3 Mean Corpuscular Hemoglobin Concent 33.4 Red Cell Distribution Width 13.7 Platelet Count 239 Mean Platelet Volume 10.2 Neutrophils (%) (Auto) 93.9 Lymphocytes (%) (Auto) 4.3 Monocytes (%) (Auto) 1.7 Eosinophils (%) (Auto) 0.0 Basophils (%) (Auto) 0.1 Neutrophils # (Auto) 12.0 Lymphocytes # (Auto) 0.5 Monocytes # (Auto) 0.2 Eosinophils # (Auto) 0.0 Basophils # (Auto) 0.0 CBC Comment DIFF FINAL Differential Comment Prothrombin Time 15.3 Prothromb Time International Ratio 1.5 Activated Partial Thromboplast Time 119.3 Fibrinogen 444 Bedside Sodium 136 Bedside Potassium 5.0 Bedside Chloride 100 Bedside Blood Urea Nitrogen 40 Bedside Creatinine 1.9 Bedside Glucose 228 Total Creatine Kinase 130 Troponin I 1.26 Date/Time Source Procedure Growth Status 07/02/17 00:15 Blood Peripheral Aerobic Blood Culture Pending Received 07/02/17 00:15 Blood Peripheral Anaerobic Blood Culture Pending Received 07/02/17 01:30 Nasal Washing Influenza Types A,B Antigen (JOSE) - Final NEGATIVE FOR FLU A AND B ANTIGEN.... Complete 07/02/17 05:15 Urine Clean Catch Urine Culture Pending Received Result Diagram: 07/02/17 0803 07/02/17 0010 Imaging Last Impressions Head CT 07/02/17 0000 Signed Impressions: Service Date/Time: Sunday, July 02, 2017 08:47 - CONCLUSION: Right basal ganglia lacunar infarct, indeterminate age. Otherwise unremarkable CT brain. Keith Kurtz MD Chest X-Ray 07/01/17 2339 Signed Impressions: Service Date/Time: Sunday, July 02, 2017 00:03 - CONCLUSION: Basilar airspace disease is noted. Ciro Lau MD Assessment and Plan Assessment and Plan Assessment: 86-year-old female with chief complaint of shortness of breath who presents with elevated BNP, elevated troponin, and rest her decompensation now with acute hypoxic respiratory failure and metabolic encephalopathy. I've spoken with Dr. Romo, who agrees that acute CVA is much less likely in the differential than a cardiac etiology for her decompensation. We will await the MRI and MRA for confirmation. I have ordered STAT echocardiogram to eval for global function and regional wall motion abnormalities. I have spoken with Dr. Rivera and he will evaluate her today from a cardiac standpoint. She remains very critically ill at this point. Plan by systems: Neurologic: Metabolic encephalopathy - CT head 07/02: Negative for acute change, old right basal ganglia stroke - MRI/MRA brain 07/02: Pending - Versed drip for sedation goal RASS -2 Respiratory: Acute hypoxic and hypercarbic respiratory failure - Head of bed elevated - Vent bundle - Nebs - No SBT today given acute change in condition - Forced diuresis - steroids were started empirically overnight for possible COPD exacerbation. in this acute phase, will not discontinue them until we have further information , but this appears to be more cardiac in origin and it may be safe to discontinue steroids in the near future. Cardiovascular: NSTEMI Acute congestive heart failure exacerbation, unknown type, suspect systolic - STAT 2d echo - cardiology consult - trend troponins - heparin drip - lasix 80mg iv q6h Renal: Acute kidney injury superimposed on chronic renal insufficiency, unknown stage - difficult to discern baseline creatinine: every admission, Cr appears to be between 1.6 - 1.9, but unclear if this is acute evaluations or baseline GFR. -- Strict I/Os - place morton FEN/GI: Acute protein calorie malnutrition- moderate Acute intravascular volume overload Hyperkalemia - lasix 80mg iv q6h - NPO until further evaluation - ICU electrolyte protocol - stop all mivf. Heme/ID: History of PE in 2011 - keep heparin drip - daily cbc. Endocrine: Hyperglycemia of critical illness -- SSI Prophylaxis: GI Prophylaxis Pepcid DVT Prophylaxis -- SCDs Heparin drip Lines: Peripheral IVs Morton Dispo: To ICU. Very critically ill This patient remains critically ill with one or more organ systems which are or may become a threat to life. I have spent in excess of 78 minutes discontinuously in the care and management of this patient. This time is exclusive of procedures, and includes, but is not limited to, evaluation of the patient, review of the medical record, discussions with family, consultants, nursing staff, or respiratory therapy, and documentation in the medical record. Danny Israel MD Jul 02, 2017 10:09
--- NOTE | 2017-07-02 10:10 | PD.PROCEDR ---
Procedure Note Procedure Endotracheal Intubation Diagnosis: Acute altered mental status, concern for stroke Indications: Acute hypoxic and hypercarbic respiratory failure Consent: Emergent Anesthesia: Etomidate 10 mg IV, Rocuronium 50 mg IV Description of the Procedure: The patient was positioned in the sniffing position. Pre-oxygenation was performed using a [id number]. Anesthesia was induced via rapid sequence. A Brand #2 was used for laryngoscopy and a Grade IIa view was obtained. A 7.5 cuffed endotracheal tube was inserted atraumatically through the vocal cords. Confirmation of correct endotracheal tube placement was made by equal and bilateral breath sounds and colorimetric CO2 detection. The endotracheal tube was secured at 22 cm at the teeth. There were no immediate complications noted. The patient remained hemodynamically stable throughout the procedure. A chest x-ray has been ordered. I personally performed the procedure. Danny Israel MD Jul 02, 2017 10:10
--- NOTE | 2017-07-02 10:14 | RADRPT ---
EXAM DATE/TIME: 07/02/2017 09:06 [facility] COMPARISON: MRI BRAIN W/O CONTRAST, July 02, 2017, 9:06. INDICATIONS : Stroke alert. MEDICAL HISTORY : Hypertension. Carcinoma, breast. SURGICAL HISTORY : Mastectomy, right. Hysterectomy. ENCOUNTER: Initial ACUITY: 2 day PAIN SCORE: 0/10 LOCATION: cranial Please note a normal MRA of the brain does not entirely exclude the possibility of a small aneurysm, nor the possibility of distal intracranial vessel disease. TECHNIQUE: 3D time of flight MRA was performed. Source images, multiplanar STS MIP, and 3D volume MIP reconstru ctions were reviewed. FINDINGS: There is excellent visualization of the major intracranial arteries out to the second-order branch ve ssels. There is no evidence for aneurysm, vessel truncation or stenosis, and no evidence for vascula r malformation. Persistent circulation the right posterior cerebral artery. The vertebrobasilar Junction normal. Anterior communicating artery is not visualized. CONCLUSION: 1. No large vessel stenosis or aneurysm. 2. Normal variants as described above. Keith Kurtz MD on July 02, 2017 at 10:07 Board Certified Radiologist. This report was verified electronically.
[2017-07-02] MEDS: MIDAZOLAM 100 MG/100 ML INJ 100 ML IV PRN (10:54)
[2017-07-02] MEDS: fentaNYL DRIP 250 ML IV PRN (10:54)
--- NOTE | 2017-07-02 11:10 | RADRPT ---
EXAM DATE/TIME: 07/02/2017 10:31 [facility] COMPARISON: CHEST PA & LAT, September 25, 2010, 8:39. INDICATIONS : Endotracheal tube placement. MEDICAL HISTORY : Cardiovascular disease. SURGICAL HISTORY : CABG. ENCOUNTER: Initial ACUITY: 1 day PAIN SCORE: Non-responsive. LOCATION: Bilateral chest FINDINGS: A single view of the chest demonstrates minimal bibasilar densities. Endotracheal tube 2.5 cm above t he edda. Heart normal in size. Osseous structures are intact. CONCLUSION: 1. Bibasilar densities. 2. Endotracheal tube 2.5 cm above edda. Keith Kurtz MD on July 02, 2017 at 11:07 Board Certified Radiologist. This report was verified electronically.
[2017-07-02] MEDS: FUROSEMIDE 100 MG/10 ML VIAL IV PUSH SCH ×3 (11:16→20:37)
[2017-07-02] MEDS: SODIUM CHLORIDE 0.9% FLUSH 10 ML FLUSH IV FLUSH SCH ×2 (11:42→20:37)
--- NOTE | 2017-07-02 11:45 | MB ---
cc: JAYME COOL MD DATE OF CONSULTATION: 07/02/2017 REASON FOR CONSULTATION: Elevated troponin, respiratory failure. HISTORY OF PRESENT ILLNESS: The patient is an 86 year-old woman with no known cardiac history who presented with severe shortness of breath and eventual respiratory failure and found to have an elevated troponin of 1.89, and elevated BNP over 3000. She is currently intubated. All history is obtained from the chart. PAST MEDICAL HISTORY: 1. PE. 2. Breast cancer. 3. COPD. 4. Hypertension. CURRENT MEDICATIONS: 1. Lasix 80 mg IV q.6 hours. 2. IV potassium. 3. Diovan. 4. Synthroid. 5. Clonidine p.r.n. ALLERGIES: Multiple. Please see the EMR. PHYSICAL EXAMINATION: VITAL SIGNS: Afebrile, pulse 100, respiratory 22, BP 160/80 sating 97 on 3 liters. General: Intubated elderly woman. Neck: No JVD. Lungs: Ventilator sounds appreciated. Cardiovascular: Regular rate and rhythm. Distant heart sounds. No significant murmurs appreciated. Abdomen: Benign. Extremities: No edema. LABORATORY DATA Sodium was 136, potassium 5.0, chloride 100, bicarb 40, BUN 30, creatinine 1.9, glucose 228, troponin initiated at 1.89 and is down trending. BNP is 3,291. EKG shows sinus rhythm with possible anteroseptal ischemic changes. IMPRESSION: New onset CHF. The patient appears to have new-onset systolic congestive heart failure. Apparently her bedside echo showed a significantly decreased LV systolic function but her formal echo is still pending. Her troponins are down trending which does imply that she may have had an NM at some point in the recent past and we are now seeing a subsequent ischemic cardiomyopathy. For the moment she is being diuresed and her respiratory failure is being managed by the critical care team. We will obtain an echocardiogram and assist with medical therapy. When she is more compensated and extubated, we can proceed with an ischemic workup of some type whether it be a nuclear stress test or cardiac catheterization. Further recommendations will based on her clinical course and echocardiogram. Thank you again for the opportunity to participate in this patient's care. JaymeMD JANES Blank/MARILEE /10:48 AM /11:01 AM
--- NOTE | 2017-07-02 12:20 | EKG ---
Date Performed: 07/01/2017 Time Performed: 23:40:46 PTAGE: 86 years EKG: SINUS TACHYCARDIA WITH OCCASIONAL VENTRICULAR PREMATURE COMPLEXES NONSPECIFIC T-WAVE ABNORM ALITY ABNORMAL RHYTHM ECG Compared to PREVIOUS TRACING , T-wave changes are new and heart rate is faster. PREVIOUS TRACIN 14.50 DOCTOR: Edgar Park Interpretating Date/Time 07/02/2017 12:19:38
--- NOTE | 2017-07-02 12:21 | EKG ---
Date Performed: 07/02/2017 Time Performed: 05:48:34 PTAGE: 86 years EKG: Nonspecific T-wave change Since previous tracing, no significant change noted Abnormal ECG PREVIOUS TRACING : 07/01/2017 23.40.46 DOCTOR: Edgar Park Interpretating Date/Time 07/02/2017 12:20:36
--- NOTE | 2017-07-02 12:23 | EKG ---
Date Performed: 07/02/2017 Time Performed: 08:02:25 PTAGE: 86 years EKG: ATRIAL FIBRILLATION WITH RAPID VENTRICULAR RESPONSE MODERATE T-WAVE ABNORMALITY, CONSIDER A NTEROLATERAL ISCHEMIA ABNORMAL ECG Compared to PREVIOUS TRACING , rhythm has gone from Sinus rhythm with rate of 90 to atrial fibrillation with ventricular response of 114. ST-T changes have worsened anterolaterally, which may be rate related. Clinical correlation recommended. PREVIOUS TRACIN07/02 05.48.34 DOCTOR: Edgar Park Interpretating Date/Time 07/02/2017 12:21:43
[2017-07-02] MEDS ORDERED: PHENYLEPHRINE HCL 10 MG/ML VIAL ONE (13:24)
[2017-07-02] MEDS ORDERED: PHENYLEPHRINE 40 MG in D5W 500 ML IV PRN (13:30)
[2017-07-02] MEDS ORDERED: TERBUTALINE INJ 1 MG/ML AMP SQ PRN (13:30)
[2017-07-02 13:59] LABS: TROPONIN I 1.23 NG/ML (0.02-0.05)
--- NOTE | 2017-07-02 14:11 | PD.CONS ---
History of Present Illness Service Neurology Consult Requested By medical Reason for Consult stroke alert Primary Care Physician Tayo Messer M.D. History of Present Illness 86-year-old f who had mental status changes and a stroke alert was called. pt evaluated by ccm and noted to have resp distress requiring emergent intubation and stabilization and is now in the icu. hx of pulm embolus and is on coumadin tx. on hep gtt as inr was subtherapeutic and considerations of nstemi on admission. not tpa candidate as she is anticoagulated on hep gtt and symptoms reflect non-localizing symptoms that are attributable to resp distress. Review of Systems ROS Limitations: Clinical Condition, Intubated, Altered Mental Status Past Family Social History Allergies: Coded Allergies: allopurinol (Unverified Allergy, Severe, RASH; SKIN PEELING, 01/10/17) coconut (Unverified Allergy, Severe, RESP DISTRESS, 01/10/17) levothyroxine (Unverified Allergy, Severe, ALLERGIC TO "GENERIC' SYNTHROID , 01/10/17) levothyroxine sodium (Unverified Allergy, Severe, ALLERGIC TO "GENERIC' SYNTHROID, 01/10/17) penicillin G (Unverified Allergy, Severe, RASH, 01/10/17) tetanus toxoid, adsorbed (Unverified Allergy, Severe, 01/10/17) Uncoded Allergies: DILL (Allergy, Severe, 05/18/11) Past Medical History Unobtainable from the patient due to her clinical condition. Per chart review: COPD Hypertension PE in 2010, anticoagulated on Coumadin History of breast cancer History of endometrial cancer Past Surgical History Unobtainable from patient due to her clinical condition. Per chart review: Bilateral cataracts Hysterectomy Right mastectomy 2 Reported Medications Unobtainable from the patient did clinical condition. Active Ordered Medications See MAR Family History Unobtainable from patient due to her clinical condition. Per chart review: Father with CAD Social History Unavailable from the patient due to clinical condition. Per chart review: Occasional alcohol. Remote history of smoking. Denies illicit drugs. Review of Systems All other ROS: Unable to obtain Past Family Social History Allergies: Coded Allergies: allopurinol (Unverified Allergy, Severe, RASH; SKIN PEELING, 01/10/17) coconut (Unverified Allergy, Severe, RESP DISTRESS, 01/10/17) levothyroxine (Unverified Allergy, Severe, ALLERGIC TO "GENERIC' SYNTHROID , 01/10/17) levothyroxine sodium (Unverified Allergy, Severe, ALLERGIC TO "GENERIC' SYNTHROID, 01/10/17) penicillin G (Unverified Allergy, Severe, RASH, 01/10/17) tetanus toxoid, adsorbed (Unverified Allergy, Severe, 01/10/17) Uncoded Allergies: DILL (Allergy, Severe, 05/18/11) Active Ordered Medications Current Medications Medications (Trade) Dose Ordered Sig/Johanna Route Start Time Stop Time Status Last Admin Heparin Sodium/ Dextrose 250 ml @ 7 mls/hr TITRATE PRN IV 07/02/17 02:00 07/02/17 02:43 (NS Flush) 2 ml UNSCH PRN IV FLUSH 07/02/17 02:00 (NS Flush) 2 ml BID IV FLUSH 07/02/17 09:00 07/02/17 11:42 (Tylenol) 650 mg Q4H PRN PO 07/02/17 02:00 (Zofran Inj) 4 mg Q6H PRN IVP 07/02/17 02:00 (Narcan Inj) 0.4 mg UNSCH PRN IV PUSH 07/02/17 02:00 (Milk Of Magnesia Liq) 30 ml Q12H PRN PO 07/02/17 02:00 (Senokot) 17.2 mg Q12H PRN PO 07/02/17 02:00 (Dulcolax Supp) 10 mg DAILY PRN RECTAL 07/02/17 02:00 (Lactulose Liq) 30 ml DAILY PRN PO 07/02/17 02:00 (Synthroid) 50 mcg DAILY@0700 PO 07/02/17 07:00 07/02/17 06:24 (Diovan) 320 mg DAILY PO 07/02/17 09:00 07/02/17 07:11 (Catapres) 0.1 mg Q6H PRN PO 07/02/17 06:45 07/02/17 06:51 (Trandate) 100 mg DAILY PO 07/02/17 07:15 Future Hold 07/02/17 07:12 (SoluMEDROL INJ) 40 mg Q8HR IV PUSH 07/02/17 07:15 07/02/17 07:19 (Lasix Inj) 80 mg Q6H IV PUSH 07/02/17 10:00 07/02/17 11:16 Potassium Chloride 100 ml @ 50 mls/hr Q2H PRN IV 07/02/17 10:00 Potassium Chloride 100 ml @ 50 mls/hr Q2H PRN IV 07/02/17 10:00 (K-Lyte Cl Eff) 50 meq UNSCH PRN PO 07/02/17 10:00 Potassium Chloride 100 ml @ 25 mls/hr UNSCH PRN IV 07/02/17 10:00 Potassium Chloride 100 ml @ 50 mls/hr Q2H PRN IV 07/02/17 10:00 Magnesium Sulfate 4 gm/Sodium Chloride 100 ml @ 50 mls/hr UNSCH PRN IV 07/02/17 10:00 (Mag-Ox) 800 mg UNSCH PRN PO 07/02/17 10:00 Magnesium Sulfate 2 gm/Sodium Chloride 100 ml @ 50 mls/hr UNSCH PRN IV 07/02/17 10:00 (K-Phos) 2,000 mg Q4H PRN PO 07/02/17 10:00 Sodium Phosphate 30 mmol/Sodium Chloride 250 ml @ 42 mls/hr UNSCH PRN IV 07/02/17 10:00 (K-Phos) 2,000 mg UNSCH PRN PO/TUBE 07/02/17 10:00 Potassium Phosphate 30 mmol/ Sodium Chloride 260 ml @ 42 mls/hr UNSCH PRN IV 07/02/17 10:00 (Peridex 0.12% Liq) 15 ml BID@08,20 MT 07/02/17 20:00 (Duoneb Neb) 1 ampule Q6HR NEB INH 07/02/17 10:00 (Duoneb Neb) 1 ampule Q2HR NEB PRN INH 07/02/17 10:00 Midazolam HCl 100 ml @ 2 mls/hr TITRATE PRN IV 07/02/17 10:00 07/02/17 10:54 Fentanyl Citrate 250 ml @ 5 mls/hr TITRATE PRN IV 07/02/17 10:30 07/02/17 10:54 Phenylephrine HCl 40 mg/Dextrose 500 ml @ 30 mls/hr TITRATE PRN IV 07/02/17 13:30 07/02/17 13:50 (Brethine Inj) 1 mg UNSCH PRN SQ 2/4/18 13:30 Exam I&O / VS Vital Signs Date Time Temp Pulse Resp B/P (MAP) Pulse Ox O2 Delivery O2 Flow Rate FiO2 07/02/17 13:50 75 107/71 07/02/17 09:30 109 07/02/17 09:15 96 60 07/02/17 08:40 99 100 07/02/17 08:30 130 07/02/17 08:16 112 174/94 (120) 93 07/02/17 08:15 99 100 07/02/17 08:11 111 139/82 (101) 95 07/02/17 08:03 115 151/86 (107) 96 07/02/17 08:00 114 139/80 (99) 96 07/02/17 07:53 108 157/80 (105) 89 07/02/17 07:30 117 156/90 (112) 95 07/02/17 07:25 130 183/115 (137) 95 07/02/17 07:00 136 07/02/17 06:29 110 07/02/17 05:00 98.4 93 22 180/93 (122) 97 07/02/17 05:00 93 07/02/17 04:40 07/02/17 04:00 81 31 163/82 (109) 97 Nasal Cannula 3.00 07/02/17 03:00 80 33 162/85 (110) 98 Nasal Cannula 3.00 07/02/17 02:00 78 32 146/78 (100) 100 BiPAP 35 07/02/17 01:10 98 Nasal Cannula 3.00 07/02/17 01:02 94 31 165/89 (114) 100 BiPAP 35 07/01/17 23:55 96 BiPAP 35 07/01/17 23:55 35 91 Nasal Cannula 4.00 07/01/17 23:48 104 35 81 07/01/17 23:45 98 35 Exam Comments intubated, on sedative gtt's, does arouse, confused, not following, ou 2mm sluggish, mild blink to threat, face sym, damon to gravity with tactile stimulation, no clonus, planterflexor Review/Management Diagnosis/Plan: (1) Encephalopathy, metabolic ICD Codes: G93.41 - Metabolic encephalopathy Status: Acute Plan: 2/2 resp distress/chf mri brain- old infarct. mra brain- no large vessel occlusion should improve once medical condition improves with hx of pulm embolus and depressed ef should be on coumadin long-term overall prognosis guarded will follow peripherally as needed (2) Acute exacerbation of COPD with asthma ICD Codes: J44.1 - Chronic obstructive pulmonary disease with (acute) exacerbation; J45.901 - Unspecified asthma with (acute) exacerbation Status: Acute Plan: per ccm (3) CHF (congestive heart failure) ICD Codes: I50.9 - Heart failure, unspecified Status: Acute Plan: per ccm/cardiology (4) Non-ST elevation W[place] (NSTEMI) ICD Codes: I21.4 - Non-ST elevation (NSTEMI) myocardial infarction Status: Acute Plan: seen by cardiology, felt to have ischemic cardiomyopathy Nakul Romo MD Jul 02, 2017 14:11
--- NOTE | 2017-07-02 16:21 | ECHRPT ---
Indication: HEART FAILURE CONCLUSIONS Normal left ventricular size. Moderate concentric left ventricular hypertrophy. The left ventricular systolic function is severely reduced with an estimated ejection fraction in th e range of 30-35%. Global hypokinesis The left atrial size is mildly dilated. Mild thickening of the mitral valve leaflets. Mitral annular calcification is present. There is trace tricuspid valve regurgitation. BP: / HR: Rhythm: MEASUREMENTS (Male / Female) Normal Values Technical Quality:Technically difficult study 2D ECHO LV Diastolic Diameter PLAX 4.2 cm 4.2 - 5.9 / 3.9 - 5.3 cm LV Systolic Diameter PLAX 3.8 cm IVS Diastolic Thickness 1.5 cm 0.6 - 1.0 / 0.6 - 0.9 cm LVPW Diastolic Thickness 0.7 cm 0.6 - 1.0 / 0.6 - 0.9 cm RV Internal Dim ED PLAX 2.1 cm LA Systolic Diameter LX 3.2 cm 3.0 - 4.0 / 2.7 - 3.8 cm DOPPLER Mitral E Point Velocity 57.3 cm/s Mitral A Point Velocity 27.1 cm/s Mitral E to A Ratio 2.1 TR Peak Velocity 223.0 cm/s TR Peak Gradient 20.0 mmHg FINDINGS LEFT VENTRICLE Normal left ventricular size. Moderate concentric left ventricular hypertrophy. The left ventricular systolic function is severely reduced with an estimated ejection fraction in th e range of 30-35%. RIGHT VENTRICLE Normal right ventricular size and systolic function. LEFT ATRIUM The left atrial size is mildly dilated. RIGHT ATRIUM The right atrial size is normal. ATRIAL SEPTUM Normal atrial septal thickness without atrial level shunting by limited color doppler interrogation. AORTA The aortic root and proximal ascending aorta are normal in size on limited imaging. MITRAL VALVE Mild thickening of the mitral valve leaflets. Mitral annular calcification is present. AORTIC VALVE Trileaflet aortic valve. No aortic valve stenosis or regurgitation. TRICUSPID VALVE There is trace tricuspid valve regurgitation. PULMONARY VALVE The pulmonary valve is not well visualized. VESSELS The inferior vena cava is normal in size. PERICARDIUM No pericardial effusion. Jayme Beltre MD (Electronically Signed) Final Date:02 July 2017 16:20
--- NOTE | 2017-07-02 19:27 | MB ---
cc: Bucky GRANT M.D. DATE OF CONSULTATION: 07/02/2017. REASON FOR CONSULTATION: Respiratory failure and ventilator dependency. HISTORY OF PRESENT ILLNESS: This is an 86-hour-old white female who was admitted to the hospital with altered mental status and respiratory failure. The patient has been told he has had a history for pulmonary emboli in the past and has been short of breath and apparently was admitted for possible congestive heart failure. Following admission however the patient deteriorated and she had an acute change in mental status and a stroke alert was called and due to progressive respiratory distress she had to be intubated and placed on ventilator support. A CT of the head was done but was negative for any bleed. The patient since then has been sedated and placed on ventilator support and is presently on 40% FIO2 and an AC rate of 15 and has adequate blood gases. Chest x-rays that were done showed mild basilar infiltrates consistent with edema and/or atelectasis. The patient also has been on heparin for possible NSTEMI. Her renal functions appeared to show chronic kidney disease. The patient is sedated and no history could be obtained from the patient. PAST MEDICAL HISTORY: The past history includes: 1. COPD. 2. History of pulmonary emboli on Coumadin. 3. History of carcinoma of the breast with right mastectomy. 4. Prior history of endometrial cancer. 5. History for times two. 6. History for breast cancer. HABITS: The patient was a prior smoker. No significant alcohol. ALLERGIES: None were listed. MEDICATIONS: Medication list included: 1. Coumadin 2 milligrams a day. 2. Synthroid 50 micrograms daily. 3. Spiriva one capsule a day. 4. Clonidine 0.2 milligrams patch. 5. Labetalol 100 milligrams daily. REVIEW OF SYSTEMS: The patient is on ventilator support. PHYSICAL EXAMINATION: GENERAL: This averagely built elderly lady is intubated, sedated on ventilator support. VITAL SIGNS: Blood pressure 160/70, pulse 82, respirations 16-20, temperature 98.2. HEAD, EYES, EARS, NOSE, THROAT: Head normocephalic. The pupils are reactive and equal. Tongue is moist. Throat is injected. Nasal mucosa is edematous. NECK: The neck is supple with mild venous distention. Trachea is midline. No thyroid enlargement. CHEST: Decreased breath sounds at the bases with occasional wheezes scattered. HEART: The heart sounds are irregular. S1 and S2. No definite murmur. No S3. ABDOMEN: The abdomen is soft and nontender. No organomegaly. The bowel sounds are active. EXTREMITIES: Decreased pulses. NEUROLOGIC: Reflexes are not well-elicited. The patient is sedated. Babinski is equivocal. SKIN: No lesions are noted. ASSESSMENT: 1. Ventilator-dependent respiratory failure. 2. Metabolic encephalopathy. 3. Hypercapnic respiratory failure. 4. Congestive heart failure. 5. NSTEMI. 6. Acute kidney injury with chronic kidney disease. 7. COPD with emphysema. PLAN: The patient has been weaned down to 35% FIO2. Will start reducing the sedation and wean the a.c. rate down to C-PAP over the next 24 hours. If she responds well, we will do C-PAP trials and check blood gases and respiratory parameters. NG tube to suction. Nebulized DuoNeb solution added q. 6. Diuretic therapy as per the prison classification counselor. Repeat chest x-ray in a.m. The patient will also be continued on anti-hypertensives as ordered and anticoagulation will be continued as well. Thank you Dr. Champion for this consultation. MD FARIHA Vasquez/MENDY /6:26 PM /7:08 PM
[2017-07-02] MEDS: CHLORHEXIDINE 0.12% (ORAL KIT) 15 ML CUP MT SCH (20:06)
[2017-07-03] VITALS (19 sets, daily range): BP systolic 91–137; BP diastolic 51–71; PULSE 64–100; RESP 12–15; TEMP 97.5–99.4; O2SAT 93–100
[2017-07-03] MEDS: RESP: ALBUTEROL 2.5 MG/IPRATROPIUM 0.5 MG NEB (SCH) INH ×4 (03:26→20:05)
--- NOTE | 2017-07-03 05:11 | MG ---
cc: SUSHMA SALDANA MD Lab No: [id number] Date: 07/02/2017 Age: 86 Sex: F Race: DATE OF 1930 IDENTIFYING DATA 86-year-old. MEDICATIONS Fentanyl and Versed drips. HISTORY Acute mental status changes. FINDINGS Theta with delta frequencies followed by some spindles occurring, some frontal electrical artifact. 20-50 microvolt activity. Spindle waveforms noted. Limited driving with photic stimulation. Single lead EKG showing sinus rhythm. INTERPRETATION Moderate encephalopathy which may be induced pharmacologically. Clinical correlation. Sushma Saldana MD MG/SSB /10:56 PM /5:03 AM
[2017-07-03] MEDS: methylPREDNISolone SOD SUCC 40 MG/1 ML VIAL IV PUSH SCH ×3 (05:12→20:38)
[2017-07-03] MEDS: FUROSEMIDE 100 MG/10 ML VIAL IV PUSH SCH (05:12)
[2017-07-03 06:27] LABS: HEMATOCRIT 38.4 % (35.0-46.0); HEMOGLOBIN 12.9 GM/DL (11.6-15.3); LYMPH % 2.9 % (9.0-44.0); LYMPHOCYTE # 0.4 TH/MM3 (1.0-4.8); MEAN CELL VOLUME 98.7 FL (80.0-100.0); MEAN CORPUSCULAR HEMOGLOBIN 33.1 PG (27.0-34.0); MEAN CORPUSCULAR HGB CONC 33.6 % (32.0-36.0); MEAN PLATELET VOLUME 10.5 FL (7.0-11.0); MONO % 4.2 % (0.0-8.0); MONOCYTE # 0.6 TH/MM3 (0-0.9); NEUT % 92.9 % (16.0-70.0); PLATELET COUNT 187 TH/MM3 (150-450); RED BLOOD COUNT 3.89 MIL/MM3 (4.00-5.30); RED CELL DISTRIBUTION WIDTH 13.7 % (11.6-17.2)
[2017-07-03 06:51] LABS: BICARBONATE 23.7 MEQ/L (21.0-32.0); CALCIUM 7.9 MG/DL (8.5-10.1); CREATININE 2.44 MG/DL (0.50-1.00)
[2017-07-03] MEDS: LEVOTHYROXINE SODIUM 50 MCG TAB PO SCH (08:15)
[2017-07-03] MEDS: CHLORHEXIDINE 0.12% (ORAL KIT) 15 ML CUP MT SCH ×2 (08:16→20:38)
--- NOTE | 2017-07-03 09:13 | HHI.CCPN ---
Subjective Remarks/Hospital Course This is an 86-year-old female with a history of breast cancer status post right mastectomy, PE in 2010, who presented overnight with shortness of breath was found to have an elevated troponin at 1.89, BNP of 3291, creatinine 1.9, sodium 136, WBCs 12,000. She was admitted for workup of her shortness of breath, possible heart failure. To my knowledge and brief review of medical records she does not have a history of heart failure. This morning she had sudden acute change in mental status. Stroke alert was called. At the same time, should increasing oxygen requirement. When I evaluated the patient, she was obtunded with agonal respirations. I emergently intubated patient. We went down for stat CT head which was negative for acute bleed. We then proceeded for MRI/MRA of the brain. I did perform + critical care ultrasound which demonstrated severe left ventricular systolic dysfunction, preserved RV function , no pericardial effusion, dilated IVC without respiratory variation. The patient does have a history of prior PE, is currently on a heparin drip for possible NSTEMI, given her preserved RV function, is unlikely that massive PE has caused her acute decline. Given her elevated creatinine, we will avoid pulmonary angiogram at this time. Due to the patient's critical condition, no additional information is available from her. Due to the emergent nature of the consult, a complete review of the medical record was unavailable to me. 07/03 Patient is intubated and sedated with Fentanyl and Versed drips. On Heparin drip. Afebrile. Objective Vital Signs Date Time Temp Pulse Resp B/P (MAP) Pulse Ox O2 Delivery O2 Flow Rate FiO2 07/03/17 07:20 97 30 07/03/17 05:40 82 137/69 07/03/17 03:00 98.9 15 07/02/17 04:00 Nasal Cannula 3.00 Intake and Output 07/03/17 07/03/17 07/04/17 08:00 16:00 00:00 Intake Total 254.6 ml Output Total 400 ml Balance -145.4 ml Result Diagram: 07/03/17 0533 07/03/17 0533 Other Results Laboratory Tests Test 07/02/17 11:00 07/02/17 12:30 07/02/17 19:38 07/03/17 02:29 Blood Gas Puncture Site LT RADIAL Blood Gas Patient Temperature 98.6 Blood Gas HCO3 21 mmol/L Blood Gas Base Excess -4.3 mmol/L Blood Gas Oxygen Saturation 98 % Arterial Blood pH 7.31 Arterial Blood Partial Pressure CO2 42 mmHg Arterial Blood Partial Pressure O2 224 mmHg Arterial Blood Oxygen Content 18.6 Vol % Arterial Blood Carboxyhemoglobin 0.6 % Arterial Blood Methemoglobin 1.2 % Blood Gas Hemoglobin 13.2 G/DL Oxygen Delivery Device VENTILATOR Blood Gas Ventilator Setting Blood Gas Inspired Oxygen 60 % Activated Partial Thromboplast Time 34.5 SEC 61.6 SEC 44.7 SEC Total Creatine Kinase 115 U/L Troponin I 1.23 NG/ML Test 07/03/17 05:33 White Blood Count 13.0 TH/MM3 Red Blood Count 3.89 MIL/MM3 Hemoglobin 12.9 GM/DL Hematocrit 38.4 % Mean Corpuscular Volume 98.7 FL Mean Corpuscular Hemoglobin 33.1 PG Mean Corpuscular Hemoglobin Concent 33.6 % Red Cell Distribution Width 13.7 % Platelet Count 187 TH/MM3 Mean Platelet Volume 10.5 FL Neutrophils (%) (Auto) 92.9 % Lymphocytes (%) (Auto) 2.9 % Monocytes (%) (Auto) 4.2 % Eosinophils (%) (Auto) 0.0 % Basophils (%) (Auto) 0.0 % Neutrophils # (Auto) 12.0 TH/MM3 Lymphocytes # (Auto) 0.4 TH/MM3 Monocytes # (Auto) 0.6 TH/MM3 Eosinophils # (Auto) 0.0 TH/MM3 Basophils # (Auto) 0.0 TH/MM3 CBC Comment DIFF FINAL Differential Comment Blood Urea Nitrogen 54 MG/DL Creatinine 2.44 MG/DL Random Glucose 139 MG/DL Calcium Level 7.9 MG/DL Sodium Level 138 MEQ/L Potassium Level 4.2 MEQ/L Chloride Level 102 MEQ/L Carbon Dioxide Level 23.7 MEQ/L Anion Gap 12 MEQ/L Estimat Glomerular Filtration Rate 19 ML/MIN Imaging Last Impressions Head Magnetic Resonance Angiography 07/02/17 0000 Signed Impressions: Service Date/Time: Sunday, July 02, 2017 09:06 - CONCLUSION: 1. No large vessel stenosis or aneurysm. 2. Normal variants as described above. Keith Kurtz MD Head CT 07/02/17 0000 Signed Impressions: Service Date/Time: Sunday, July 02, 2017 08:47 - CONCLUSION: Right basal ganglia lacunar infarct, indeterminate age. Otherwise unremarkable CT brain. Keith Kurtz MD Chest X-Ray 07/02/17 0000 Signed Impressions: Service Date/Time: Sunday, July 02, 2017 10:31 - CONCLUSION: 1. Bibasilar densities. 2. Endotracheal tube 2.5 cm above edda. Keith Kurtz MD Brain MRI 07/02/17 0000 Signed Impressions: Service Date/Time: Sunday, July 02, 2017 09:06 - CONCLUSION: 1. Old right-sided lacunar infarct versus prominent vascular channel. 2. Nonspecific white matter changes likely chronic ischemic small vessel vasculopathy with similar changes also noted within the brainstem and left thalamus. Keith Kurtz MD Objective Remarks GENERAL: Patient is 86 yo intubated and sedated SKIN: Warm and dry. HEAD: Normocephalic. EYES: No scleral icterus. No injection or drainage. NECK: Supple, trachea midline. No JVD or lymphadenopathy. CARDIOVASCULAR: Regular rate and rhythm without murmurs, gallops, or rubs. RESPIRATORY: Breath sounds equal bilaterally. No accessory muscle use. GASTROINTESTINAL: Abdomen soft, non-tender, nondistended. MUSCULOSKELETAL: No cyanosis, or edema. BACK: Nontender without obvious deformity. No CVA tenderness. Neuro: Sedated A/P Assessment and Plan Plan by systems: Neurologic: Metabolic encephalopathy - CT head 07/02: Negative for acute change, old right basal ganglia stroke - MRI/MRA brain 07/02: No acute findings -EEG 07/02: Mod. encephalopathy - On Fentanyl and Versed drip for sedation goal RASS -2 -Neuro is following- Dr. Burns. Respiratory: Acute hypoxic and hypercarbic respiratory failure - Head of bed elevated -Continue with vents support keep sat >92% -Bronchodilators, ICU vent bundle, SBT daily as mireya. Check ABG Cardiovascular: NSTEMI CHF- Acute systolic Cardiomyopathy Monitor HR and HAMMAD keep MAP>65mmHg - cardiology is following- Dr. Beltre -Echo showed EF 30-35%, Global hypokinesis -Place on Coreg 3.125mg BID and ASA 81mg daily continue with heparin drip. d/c Diovan for renal failure Renal: Acute kidney injury superimposed on chronic renal insufficiency, unknown stage - Monitor renal function, I/O's, avoid nephrotoxins -Check real US , Consult Nephrology -Decrease Lasix 40mg Q12 GI: Acute protein calorie malnutrition- moderate -Start tube feeds- Nepro with goal rate 40ml/hr - Place on Pepcid for GI prophylaxis Heme History of PE in 2010 - On heparin drip - Monitor CBC, coags ID UTI Leukocytosis Place on Levaquin( pharmacy to adjust dose per renal function) and monitor for sign of infections ( Fever, WBC) Follow up on urine cx. check sputum cx 2/4 nasal washing negative for Influenza. Endocrine: Hyperglycemia of critical illness -- Place on SSI Prophylaxis: GI Prophylaxis Place on Pepcid DVT Prophylaxis -- SCDs Heparin drip Lines: Peripheral IVs Collier Level 3 Evonne Hunt MD Jul 03, 2017 09:13
[2017-07-03] MEDS ORDERED: GLUCAGON 1 MG/ML VIAL OTHER PRN (09:30)
[2017-07-03] MEDS ORDERED: DEXTROSE 50% IN WATER 50 ML VIAL(D50) IV PUSH PRN (09:30)
[2017-07-03] MEDS ORDERED: ASPIRIN EC 81 MG TABEC PO SCH (09:45)
--- NOTE | 2017-07-03 09:54 | PD.CARD.PN ---
Subjective Subjective Remarks Intubated, sedated Objective Medications Current Medications Medications (Trade) Dose Ordered Sig/Johanna Route Start Time Stop Time Status Last Admin Heparin Sodium/ Dextrose 250 ml @ 7 mls/hr TITRATE PRN IV 07/02/17 02:00 07/02/17 02:43 (NS Flush) 2 ml UNSCH PRN IV FLUSH 07/02/17 02:00 (NS Flush) 2 ml BID IV FLUSH 07/02/17 09:00 07/02/17 20:37 (Tylenol) 650 mg Q4H PRN PO 07/02/17 02:00 (Zofran Inj) 4 mg Q6H PRN IVP 07/02/17 02:00 (Narcan Inj) 0.4 mg UNSCH PRN IV PUSH 07/02/17 02:00 (Senokot) 17.2 mg Q12H PRN PO 07/02/17 02:00 (Dulcolax Supp) 10 mg DAILY PRN RECTAL 07/02/17 02:00 (Lactulose Liq) 30 ml DAILY PRN PO 07/02/17 02:00 (Synthroid) 50 mcg DAILY@0700 PO 07/02/17 07:00 07/03/17 08:15 (Catapres) 0.1 mg Q6H PRN PO 07/02/17 06:45 07/02/17 06:51 (Trandate) 100 mg DAILY PO 07/02/17 07:15 Future Hold 07/02/17 07:12 (SoluMEDROL INJ) 40 mg Q8HR IV PUSH 07/02/17 07:15 07/03/17 05:12 (K-Lyte Cl Eff) 50 meq UNSCH PRN PO 07/02/17 10:00 (Peridex 0.12% Liq) 15 ml BID@08,20 MT 07/02/17 20:00 07/03/17 08:16 (Duoneb Neb) 1 ampule Q6HR NEB INH 07/02/17 10:00 07/03/17 07:17 (Duoneb Neb) 1 ampule Q2HR NEB PRN INH 07/02/17 10:00 Midazolam HCl 100 ml @ 2 mls/hr TITRATE PRN IV 07/02/17 10:00 07/02/17 10:54 Fentanyl Citrate 250 ml @ 5 mls/hr TITRATE PRN IV 07/02/17 10:30 07/02/17 10:54 (Brethine Inj) 1 mg UNSCH PRN SQ 07/02/17 13:30 (Lasix Inj) 40 mg Q12H IV PUSH 07/03/17 16:00 (Coreg) 3.125 mg Q12HR PO 07/03/17 11:00 (Pepcid Inj) 10 mg Q12HR IV PUSH 07/03/17 09:30 Levofloxacin/ Dextrose 100 ml @ 100 mls/hr Q24H IV 07/03/17 10:00 (D50w (Vial) Inj) 50 ml UNSCH PRN IV PUSH 07/03/17 09:30 (Glucagon Inj) 1 mg UNSCH PRN OTHER 07/03/17 09:30 (NovoLIN R SUPPLEMENTAL SCALE) 1 Q4H SQ 07/03/17 10:00 (Ecotrin Ec) 81 mg DAILY PO 07/03/17 09:45 Vital Signs / I&O Vital Signs Date Time Temp Pulse Resp B/P (MAP) Pulse Ox O2 Delivery O2 Flow Rate FiO2 07/03/17 09:39 97 40 07/03/17 07:20 97 30 07/03/17 07:00 78 07/03/17 07:00 30 07/03/17 07:00 98.4 78 15 126/59 (81) 97 07/03/17 05:40 82 137/69 07/03/17 04:10 95 30 07/03/17 03:00 77 07/03/17 03:00 30 07/03/17 03:00 98.9 77 15 113/58 (76) 94 07/03/17 01:01 93 30 07/03/17 01:00 101 152/89 07/03/17 00:00 96 85/47 07/02/17 23:00 30 07/02/17 23:00 100 07/02/17 23:00 98.9 103 16 144/91 (108) 95 07/02/17 22:10 94 30 07/02/17 19:44 95 30 07/02/17 19:00 30 07/02/17 19:00 99.1 103 16 116/63 (80) 95 07/02/17 19:00 90 07/02/17 16:30 97 30 07/02/17 15:04 77 07/02/17 15:00 97.6 84 16 114/68 (83) 95 07/02/17 13:50 75 107/71 07/02/17 12:00 40 07/02/17 11:00 108 07/02/17 11:00 97.4 101 17 108/77 (87) 99 07/02/17 10:00 110 I/O 07/02/17 07/02/17 07/02/17 07/03/17 07/03/17 07/03/17 07:00 15:00 23:00 07:00 15:00 23:00 Intake Total 22 ml 54 ml 254.6 ml Output Total 20 ml 800 ml 400 ml Balance -20 ml 22 ml -746 ml -145.4 ml Intake IV Total 22 ml 54 ml 254.6 ml Output Urine Total 20 ml 800 ml 400 ml Gastric Drainage Total 0 ml # Bowel Movements 0 Physical Exam GENERAL: Intubated, sedated CARDIOVASCULAR: Regular rate and rhythm without murmurs, gallops, or rubs. RESPIRATORY: Clear to auscultation. Breath sounds equal bilaterally. No wheezes , rales, or rhonchi. GASTROINTESTINAL: Abdomen soft, non-tender, nondistended. Normal active bowel sounds MUSCULOSKELETAL: Extremities without clubbing, cyanosis, or edema. NEURO: Intubated, sedated Laboratory Laboratory Tests Test 07/02/17 11:00 07/02/17 12:30 07/02/17 19:38 07/03/17 02:29 Blood Gas Puncture Site LT RADIAL Blood Gas Patient Temperature 98.6 Blood Gas HCO3 21 mmol/L Blood Gas Base Excess -4.3 mmol/L Blood Gas Oxygen Saturation 98 % Arterial Blood pH 7.31 Arterial Blood Partial Pressure CO2 42 mmHg Arterial Blood Partial Pressure O2 224 mmHg Arterial Blood Oxygen Content 18.6 Vol % Arterial Blood Carboxyhemoglobin 0.6 % Arterial Blood Methemoglobin 1.2 % Blood Gas Hemoglobin 13.2 G/DL Oxygen Delivery Device VENTILATOR Blood Gas Ventilator Setting Blood Gas Inspired Oxygen 60 % Activated Partial Thromboplast Time 34.5 SEC 61.6 SEC 44.7 SEC Total Creatine Kinase 115 U/L Troponin I 1.23 NG/ML Test 07/03/17 05:33 White Blood Count 13.0 TH/MM3 Red Blood Count 3.89 MIL/MM3 Hemoglobin 12.9 GM/DL Hematocrit 38.4 % Mean Corpuscular Volume 98.7 FL Mean Corpuscular Hemoglobin 33.1 PG Mean Corpuscular Hemoglobin Concent 33.6 % Red Cell Distribution Width 13.7 % Platelet Count 187 TH/MM3 Mean Platelet Volume 10.5 FL Neutrophils (%) (Auto) 92.9 % Lymphocytes (%) (Auto) 2.9 % Monocytes (%) (Auto) 4.2 % Eosinophils (%) (Auto) 0.0 % Basophils (%) (Auto) 0.0 % Neutrophils # (Auto) 12.0 TH/MM3 Lymphocytes # (Auto) 0.4 TH/MM3 Monocytes # (Auto) 0.6 TH/MM3 Eosinophils # (Auto) 0.0 TH/MM3 Basophils # (Auto) 0.0 TH/MM3 CBC Comment DIFF FINAL Differential Comment Blood Urea Nitrogen 54 MG/DL Creatinine 2.44 MG/DL Random Glucose 139 MG/DL Calcium Level 7.9 MG/DL Sodium Level 138 MEQ/L Potassium Level 4.2 MEQ/L Chloride Level 102 MEQ/L Carbon Dioxide Level 23.7 MEQ/L Anion Gap 12 MEQ/L Estimat Glomerular Filtration Rate 19 ML/MIN Imaging Last Impressions Head Magnetic Resonance Angiography 07/02/17 Signed Impressions: Service Date/Time: Sunday, July 02, 2017 09:06 - CONCLUSION: 1. No large vessel stenosis or aneurysm. 2. Normal variants as described above. Keith Kurtz MD Head CT 07/02/17 Signed Impressions: Service Date/Time: Sunday, July 02, 2017 08:47 - CONCLUSION: Right basal ganglia lacunar infarct, indeterminate age. Otherwise unremarkable CT brain. Keith Kurtz MD Chest X-Ray 07/02/17 Signed Impressions: Service Date/Time: Sunday, July 02, 2017 10:31 - CONCLUSION: 1. Bibasilar densities. 2. Endotracheal tube 2.5 cm above edda. Keith Kurtz MD Brain MRI 07/02/17 Signed Impressions: Service Date/Time: Sunday, July 02, 2017 09:06 - CONCLUSION: 1. Old right-sided lacunar infarct versus prominent vascular channel. 2. Nonspecific white matter changes likely chronic ischemic small vessel vasculopathy with similar changes also noted within the brainstem and left thalamus. Keith Kurtz MD Assessment and Plan Problem List: (1) Cardiomyopathy ICD Codes: I42.9 - Cardiomyopathy, unspecified Plan: LVEF 30-35%; ideally would cath once medically stable to determine etiology but Cr. bumping. (2) CHF (congestive heart failure) ICD Codes: I50.9 - Heart failure, unspecified Status: Acute Plan: Still having some trouble w/ oxygenation but w/ worsening renal failure, will ask the renal team to weigh in on diuretics. (3) Non-ST elevation AK (NSTEMI) ICD Codes: I21.4 - Non-ST elevation (NSTEMI) myocardial infarction Status: Acute Plan: would plan for cath once stable depending on renal fxn Assessment and Plan Discussed plan at length with the patient's daughter. Jayme Beltre MD Jul 03, 2017 09:54
[2017-07-03] MEDS ORDERED: LEVOFLOXACIN 500 MG PREMIX INJ 100 ML IV SCH (10:00)
[2017-07-03] MEDS: INSULIN NovoLIN REGULAR SUPPLEMENTAL SCALE SQ SCH ×4 (10:00→22:00)
--- NOTE | 2017-07-03 10:10 | RADRPT ---
EXAM DATE/TIME: 07/03/2017 09:38 [facility] COMPARISON: No previous studies available for comparison. EXTERNAL COMPARISON : [facility], CT ABDOM[facility] & [facility]EL[facility], [facility], US KIDNEY - BI LATERAL, August 14, 2014, October 15, 2010, May 15, 2011. INDICATIONS : Acute kidney injury. MEDICAL HISTORY : Hypothyroidism. Arthritis. Osteoporosis. COPD. HTN. Ulcer. Breast and endometrial cancer. Pulmonary e mbolism. Depression. Anticoagulant therapy, Coumadin. SURGICAL HISTORY : section. Bilateral cataract extraction. Bilateral breast lumpectomy. Radiation therapy. ENCOUNTER: Initial ACUITY: 1 day PAIN SCORE: Nonresponsive. LOCATION: Bilateral flank MEASUREMENTS: RIGHT KIDNEY: 8.4 x 5.0 x 5.1 cm LEFT KIDNEY: Not visualized. FINDINGS: The right kidney is echogenic characteristic of medical renal disease. There are simple cysts on the right the largest measuring 1 cm. The left kidney is not visualized. No hydronephrosis is seen. A Fol ey catheter is present within the bladder which does not allow for evaluation. CONCLUSION: Medical renal disease on the right. Nonvisualization of the left kidney. Whether this reflects agenes is or atrophy is uncertain. Wilfredo Ibrahim MD on July 03, 2017 at 10:04 Board Certified Radiologist. This report was verified electronically.
[2017-07-03] MEDS: FAMOTIDINE 20 MG/2 ML VIAL IV PUSH SCH ×3 (10:22→20:39)
[2017-07-03] MEDS: CARVEDILOL 3.125 MG TAB PO SCH ×2 (10:22→20:38)
[2017-07-03] MEDS: ASPIRIN 81 MG CHEW TAB OG-TUBE SCH (11:24)
[2017-07-03] MEDS: SODIUM CHLORIDE 0.9% FLUSH 10 ML FLUSH IV FLUSH SCH ×2 (11:25→20:38)
--- NOTE | 2017-07-03 11:40 | PD.CONS ---
[facility] Service Nephrology Consult Requested By Reason for Consult Acute on CKD Primary Care Physician Tayo Messer M.D. History of Present Illness This is an 86 y/o female who was admitted on 07/01 for shortness of breath, recent URI symptoms for 3 days. Shortly after arrival she was obtunded, therefore was intubated and her medical history was obtained for the chart. She had urgent head CT and MRI of brain that showed old CVA. She was seen by neurology. Prior hx of PE on chronic Coumadin, COPD, HTN, Breast CA s/p right mastectomy, and endometrial CA. Her BNP was elevated at 3291 on arrival, and echocardiogram revealed global hypokinesis with LVH, EF 30-35%. Her admission diagnosis was new onset CHF. In addition her troponin was elevated at 1.89 is trending down to 1.23 today. Her creatinine was abnormal on arrival, 1.9, that has increased to 2.4 today. Looking back there are no recent labs for comparison , in 2010 her creatinine was around 1.6-1.7. We were consulted to assist with renal management and diuretic regimen. She is on Lasix 40 mg BID currently, was on 80 mg Q6h until this morning. She is a full code, is currently non oliguric. Drips include heparin, versed, fentanyl. (Nely Mustafa) Review of Systems ROS Limitations: Intubated, Unresponsive (Nely Mustafa) Past Family Social History Allergies: Coded Allergies: allopurinol (Unverified Allergy, Severe, RASH; SKIN PEELING, 01/10/17) coconut (Unverified Allergy, Severe, RESP DISTRESS, 01/10/17) levothyroxine (Unverified Allergy, Severe, ALLERGIC TO "GENERIC' SYNTHROID , 01/10/17) levothyroxine sodium (Unverified Allergy, Severe, ALLERGIC TO "GENERIC' SYNTHROID, 01/10/17) penicillin G (Unverified Allergy, Severe, RASH, 01/10/17) tetanus toxoid, adsorbed (Unverified Allergy, Severe, 01/10/17) Uncoded Allergies: DILL (Allergy, Severe, 05/18/11) Past Medical History COPD Hypertension PE in 2010, anticoagulated on Coumadin History of breast cancer History of endometrial cancer Past Surgical History Bilateral cataracts Hysterectomy Right mastectomy 2 Reported Medications Biotin 5 Mg Cap 5 Mg PO DAILY Clonidine 168 HR Patch (Clonidine HCl) 0.2 Mg/24 Hr Patch 1 Patch T-DERMAL Q7D Labetalol (Labetalol HCl) 100 Mg Tab 100 Mg PO DAILY Warfarin 2 Mg Tab 2 Mg PO DAILY Synthroid (Levothyroxine Sodium) 50 Mcg Tab 50 Mcg PO DAILY Spiriva Respimat Inh (Tiotropium Inh) 1.25 Mcg/Act Aero 2 Puff INH DAILY 1.25 mcg = 1 inhalation Diovan (Valsartan) 320 Mg Tab 320 Mg PO DAILY Active Ordered Medications Current Medications Medications (Trade) Dose Ordered Sig/Johanna Route Start Time Stop Time Status Last Admin Heparin Sodium/ Dextrose 250 ml @ 7 mls/hr TITRATE PRN IV 07/02/17 02:00 07/02/17 02:43 (NS Flush) 2 ml UNSCH PRN IV FLUSH 07/02/17 02:00 (NS Flush) 2 ml BID IV FLUSH 07/02/17 09:00 07/02/17 20:37 (Tylenol) 650 mg Q4H PRN PO 07/02/17 02:00 (Zofran Inj) 4 mg Q6H PRN IVP 07/02/17 02:00 (Narcan Inj) 0.4 mg UNSCH PRN IV PUSH 07/02/17 02:00 (Senokot) 17.2 mg Q12H PRN PO 07/02/17 02:00 (Dulcolax Supp) 10 mg DAILY PRN RECTAL 07/02/17 02:00 (Lactulose Liq) 30 ml DAILY PRN PO 07/02/17 02:00 (Synthroid) 50 mcg DAILY@0700 PO 07/02/17 07:00 07/03/17 08:15 (Catapres) 0.1 mg Q6H PRN PO 07/02/17 06:45 07/02/17 06:51 (Trandate) 100 mg DAILY PO 07/02/17 07:15 Future Hold 07/02/17 07:12 (SoluMEDROL INJ) 40 mg Q8HR IV PUSH 07/02/17 07:15 07/03/17 05:12 (K-Lyte Cl Eff) 50 meq UNSCH PRN PO 07/02/17 10:00 (Peridex 0.12% Liq) 15 ml BID@08,20 MT 07/02/17 20:00 07/03/17 08:16 (Duoneb Neb) 1 ampule Q6HR NEB INH 07/02/17 10:00 07/03/17 07:17 (Duoneb Neb) 1 ampule Q2HR NEB PRN INH 07/02/17 10:00 Midazolam HCl 100 ml @ 2 mls/hr TITRATE PRN IV 07/02/17 10:00 07/02/17 10:54 Fentanyl Citrate 250 ml @ 5 mls/hr TITRATE PRN IV 07/02/17 10:30 07/02/17 10:54 (Brethine Inj) 1 mg UNSCH PRN SQ 07/02/17 13:30 (Lasix Inj) 40 mg Q12H IV PUSH 07/03/17 16:00 (Coreg) 3.125 mg Q12HR PO 07/03/17 11:00 07/03/17 10:22 (Pepcid Inj) 10 mg Q12HR IV PUSH 07/03/17 09:30 07/03/17 10:22 Levofloxacin/ Dextrose 100 ml @ 100 mls/hr Q24H IV 07/03/17 10:00 07/03/17 10:22 (D50w (Vial) Inj) 50 ml UNSCH PRN IV PUSH 07/03/17 09:30 (Glucagon Inj) 1 mg UNSCH PRN OTHER 07/03/17 09:30 (NovoLIN R SUPPLEMENTAL SCALE) 1 Q4H SQ 07/03/17 10:00 (Aspirin Chew) 81 mg DAILY OG-TUBE 07/03/17 11:00 Family History Unable to obtain Social History Per records: former smoker occasional ETOH Other information unknown (Nely Mustafa) Physical Exam Vital Signs Vital Signs Date Time Temp Pulse Resp B/P (MAP) Pulse Ox O2 Delivery O2 Flow Rate FiO2 07/03/17 10:55 99 100 07/03/17 09:39 97 40 07/03/17 07:20 97 30 07/03/17 07:00 78 07/03/17 07:00 30 07/03/17 07:00 98.4 78 15 126/59 (81) 97 07/03/17 05:40 82 137/69 07/03/17 04:10 95 30 07/03/17 03:00 77 07/03/17 03:00 30 07/03/17 03:00 98.9 77 15 113/58 (76) 94 07/03/17 01:01 93 30 07/03/17 01:00 101 152/89 07/03/17 00:00 96 85/47 07/02/17 23:00 30 07/02/17 23:00 100 07/02/17 23:00 98.9 103 16 144/91 (108) 95 07/02/17 22:10 94 30 07/02/17 19:44 95 30 07/02/17 19:00 30 07/02/17 19:00 99.1 103 16 116/63 (80) 95 07/02/17 19:00 90 07/02/17 16:30 97 30 07/02/17 15:04 77 07/02/17 15:00 97.6 84 16 114/68 (83) 95 07/02/17 13:50 75 107/71 07/02/17 12:00 40 Physical Exam Elderly female seen in [facility] [place], on vent but agitated with eyes open + JVD vented lung sounds, scattered rales, diminished in bases s/p right mastectomy S1/S2, RRR no murmurs Abdomen protuberant, soft, normal bowel sounds, lower abdomen scar, well healed. Ext: no edema, extremities warm, pulses adequate. GTTS: heparin, fentanyl, versed Laboratory Laboratory Tests Test 07/02/17 12:30 07/02/17 19:38 07/03/17 02:29 07/03/17 05:33 Activated Partial Thromboplast Time 34.5 61.6 44.7 Total Creatine Kinase 115 Troponin I 1.23 White Blood Count 13.0 Red Blood Count 3.89 Hemoglobin 12.9 Hematocrit 38.4 Mean Corpuscular Volume 98.7 Mean Corpuscular Hemoglobin 33.1 Mean Corpuscular Hemoglobin Concent 33.6 Red Cell Distribution Width 13.7 Platelet Count 187 Mean Platelet Volume 10.5 Neutrophils (%) (Auto) 92.9 Lymphocytes (%) (Auto) 2.9 Monocytes (%) (Auto) 4.2 Eosinophils (%) (Auto) 0.0 Basophils (%) (Auto) 0.0 Neutrophils # (Auto) 12.0 Lymphocytes # (Auto) 0.4 Monocytes # (Auto) 0.6 Eosinophils # (Auto) 0.0 Basophils # (Auto) 0.0 CBC Comment DIFF FINAL Differential Comment Blood Urea Nitrogen 54 Creatinine 2.44 Random Glucose 139 Calcium Level 7.9 Sodium Level 138 Potassium Level 4.2 Chloride Level 102 Carbon Dioxide Level 23.7 Anion Gap 12 Estimat Glomerular Filtration Rate 19 B-Type Natriuretic Peptide 1253 Date/Time Source Procedure Growth Status 07/02/17 00:15 Blood Peripheral Aerobic Blood Culture - Preliminary NO GROWTH IN 1 DAY Resulted 07/02/17 00:15 Blood Peripheral Anaerobic Blood Culture - Preliminary NO GROWTH IN 1 DAY Resulted 07/02/17 01:30 Nasal Washing Influenza Types A,B Antigen (JOSE) - Final NEGATIVE FOR FLU A AND B ANTIGEN.... Complete 07/02/17 05:15 Urine Clean Catch Urine Culture Pending Received (Nely Mustafa) Result Diagram: 07/03/17 0533 07/03/17 0533 Imaging Last 72 hours Impressions Renal Ultrasound 07/03/17 0000 Signed Impressions: Service Date/Time: Monday, July 03, 2017 09:38 - CONCLUSION: Medical renal disease on the right. Nonvisualization of the left kidney. Whether this reflects agenesis or atrophy is uncertain. Wilfredo Ibrahim MD Head Magnetic Resonance Angiography 07/02/17 0000 Signed Impressions: Service Date/Time: Sunday, July 02, 2017 09:06 - CONCLUSION: 1. No large vessel stenosis or aneurysm. 2. Normal variants as described above. Keith Kurtz MD Head CT 07/02/17 0000 Signed Impressions: Service Date/Time: Sunday, July 02, 2017 08:47 - CONCLUSION: Right basal ganglia lacunar infarct, indeterminate age. Otherwise unremarkable CT brain. Keith Kurtz MD Chest X-Ray 07/02/17 0000 Signed Impressions: Service Date/Time: Sunday, July 02, 2017 10:31 - CONCLUSION: 1. Bibasilar densities. 2. Endotracheal tube 2.5 cm above edda. Keith Kurtz MD Brain MRI 07/02/17 0000 Signed Impressions: Service Date/Time: Sunday, July 02, 2017 09:06 - CONCLUSION: 1. Old right-sided lacunar infarct versus prominent vascular channel. 2. Nonspecific white matter changes likely chronic ischemic small vessel vasculopathy with similar changes also noted within the brainstem and left thalamus. Keith Kurtz MD Chest X-Ray 07/01/17 0212 Signed Impressions: Service Date/Time: Sunday, July 02, 2017 00:03 - CONCLUSION: Basilar airspace disease is noted. Ciro Lau MD (Nely Mustafa) Assessment and Plan Problem List: (1) Acute renal failure ICD Codes: N17.9 - Acute kidney failure, unspecified Plan: She most likely has underlying CKD, in 2010 her creatinine was 1.6-1.7, GFR 28-30, Stage 3-4 LEE may be due to CHF exacerbation and increased renal vein pressure In addition has was hypotensive this morning, may have suffered hypoperfusion injury Currently non oliguric. Needs diuresis, on Lasix 40 BID, recently reduced from 80 Q6h UA with trace protein, may have UTI, culture is in progress. Avoid nephrotoxic agents. Renal US not visualized left kidney, consider CT abd/pelvis Repeat labs in AM including phosphorus level. Maintain MAP > 65mmHg (2) CHF (congestive heart failure) ICD Codes: I50.9 - Heart failure, unspecified Status: Acute Plan: Echo shows EF 30-35% Follow fluid status, I/O Diuresis as above, titrate as needed Achieve negative fluid balance Avoid IVF On 40% FiO2 currently, CPAP and vent weening as tolerated and per protocol (3) Non-ST elevation ID (NSTEMI) ICD Codes: I21.4 - Non-ST elevation (NSTEMI) myocardial infarction Status: Acute Plan: Cardiology following, troponin trending down On Heparin gtt, appreciate further recommendations (4) Hypertension ICD Codes: I10 - Essential (primary) hypertension Plan: Monitor blood pressure Currently acceptable No on antihypertensives, hypotensive today, resume if appropriate Assessment and Plan Thank you for the consult. We will continue to follow. (Nely Mustafa) Assessment and Plan patient was seen and examined. Discussed with patient's daughter at the bedside. Acute on chronic kidney disease. Due to overdiuresis? Lasix reduced. I will change it to once daily. Renal US revealed right kidney, non visualization of the left kidney. Will consider CT of the abdomen. Apparently patient was a DNR. (Danie Crouch MD) Nely Mustafa Jul 03, 2017 11:40 Danie Crouch MD Jul 03, 2017 12:50
--- NOTE | 2017-07-03 12:09 | HHI.PR ---
Subjective Remarks Sedated with versed and Fentanyl. On Heparin drip. No fever. FIO2 at 40 % and on Vent rate 16 Objective Vital Signs Date Time Temp Pulse Resp B/P (MAP) Pulse Ox O2 Delivery O2 Flow Rate FiO2 07/03/17 10:55 99 100 07/03/17 09:39 97 40 07/03/17 07:20 97 30 07/03/17 07:00 78 07/03/17 07:00 30 07/03/17 07:00 98.4 78 15 126/59 (81) 97 07/03/17 05:40 82 137/69 07/03/17 04:10 95 30 07/03/17 03:00 77 07/03/17 03:00 30 07/03/17 03:00 98.9 77 15 113/58 (76) 94 07/03/17 01:01 93 30 07/03/17 01:00 101 152/89 07/03/17 00:00 96 85/47 07/02/17 23:00 30 07/02/17 23:00 100 07/02/17 23:00 98.9 103 16 144/91 (108) 95 07/02/17 22:10 94 30 07/02/17 19:44 95 30 07/02/17 19:00 30 07/02/17 19:00 99.1 103 16 116/63 (80) 95 07/02/17 19:00 90 07/02/17 16:30 97 30 07/02/17 15:04 77 07/02/17 15:00 97.6 84 16 114/68 (83) 95 07/02/17 13:50 75 107/71 I/O 07/02/17 07/02/17 07/02/17 07/03/17 07/03/17 07/03/17 07:00 15:00 23:00 07:00 15:00 23:00 Intake Total 22 ml 54 ml 254.6 ml Output Total 20 ml 800 ml 400 ml Balance -20 ml 22 ml -746 ml -145.4 ml Intake IV Total 22 ml 54 ml 254.6 ml Output Urine Total 20 ml 800 ml 400 ml Gastric Drainage Total 0 ml # Bowel Movements 0 Result Diagram: 07/03/17 0533 07/03/1733 Objective Remarks GENERAL: This averagely built elderly lady is intubated, sedated on ventilator support. HEAD, EYES, EARS, NOSE, THROAT: Head normocephalic. The pupils are reactive and equal. Tongue is moist. Throat is clear. NECK: The neck is supple with mild venous distention. Trachea is midline. No thyroid enlargement. CHEST: Decreased breath sounds at the bases with occasional wheezes scattered. HEART: The heart sounds are irregular. S1 and S2. No definite murmur. No S3. ABDOMEN: The abdomen is soft and nontender. No organomegaly. The bowel sounds are active. EXTREMITIES: Decreased pulses. NEUROLOGIC: Reflexes are not well-elicited. The patient is sedated. SKIN: No lesions are noted. Assessment and Plan Assessment and Plan ASSESSMENT: 1. Ventilator-dependent respiratory failure. 2. Metabolic encephalopathy. 3. Hypercapnic respiratory failure. 4. Congestive heart failure. 5. NSTEMI. 6. Acute kidney injury with chronic kidney disease. 7. COPD with emphysema. Plan : 1. Wean FIo2 to Keep sat >92. 2. Continue IV Sedation. 3. Cont Lasix 40 mg BID 4. CXR ,BMP in am 5. Nebs qid , duoneb 6. Antibiotics as ordered Bucky Og MD Jul 03, 2017 12:09
[2017-07-03] MEDS ORDERED: TIOT12.9 INH (12:52)
[2017-07-03] MEDS: MIDAZOLAM 100 MG/100 ML INJ 100 ML IV PRN (14:34)
[2017-07-03] MEDS: fentaNYL DRIP 250 ML IV PRN (14:34)
[2017-07-03] MEDS: HEPARIN-D5W 25,000 U/250 ML 250 ML IV PRN (14:34)
[2017-07-03] MEDS ORDERED: FUROSEMIDE 100 MG/10 ML VIAL IV PUSH SCH (16:00)
[2017-07-03] MEDS ORDERED: MORPHINE SULFATE 2 MG/ML INJ IV PUSH PRN (23:00)
[2017-07-04] VITALS (30 sets, daily range): BP systolic 80–192; BP diastolic 43–98; PULSE 63–93; RESP 12–47; TEMP 94–99.8; O2SAT 91–100
[2017-07-04] MEDS: INSULIN NovoLIN REGULAR SUPPLEMENTAL SCALE SQ SCH ×6 (02:00→22:00)
[2017-07-04] MEDS: RESP: ALBUTEROL 2.5 MG/IPRATROPIUM 0.5 MG NEB (SCH) INH ×4 (03:35→19:48)
[2017-07-04 04:25] LABS: AUTOMATED NEUTROPHIL # 8.3 TH/MM3 (1.8-7.7); HEMATOCRIT 39.4 % (35.0-46.0); HEMOGLOBIN 13.3 GM/DL (11.6-15.3); LYMPH % 3.8 % (9.0-44.0); LYMPHOCYTE # 0.3 TH/MM3 (1.0-4.8); MEAN CELL VOLUME 98.6 FL (80.0-100.0); MEAN CORPUSCULAR HEMOGLOBIN 33.2 PG (27.0-34.0); MEAN CORPUSCULAR HGB CONC 33.6 % (32.0-36.0); MEAN PLATELET VOLUME 10.1 FL (7.0-11.0); MONO % 3.2 % (0.0-8.0); MONOCYTE # 0.3 TH/MM3 (0-0.9); PLATELET COUNT 169 TH/MM3 (150-450); RED CELL DISTRIBUTION WIDTH 13.9 % (11.6-17.2)
[2017-07-04] MEDS: cloNIDine HCL 0.1 MG TAB PO PRN (04:30)
[2017-07-04 04:41] LABS: ALBUMIN 2.9 GM/DL (3.4-5.0); ALKALINE PHOSPHATASE 50 U/L (45-117); ALT (GPT) 21 U/L (10-53); AST (GOT) 22 U/L (15-37); BICARBONATE 24.6 MEQ/L (21.0-32.0); BLOOD UREA NITROGEN 68 MG/DL (7-18); CALCIUM 7.5 MG/DL (8.5-10.1); CHLORIDE 102 MEQ/L (98-107); CREATININE 2.75 MG/DL (0.50-1.00); GLOMERULAR FILTRATION RATE 16 ML/MIN (>89); GLUCOSE,RANDOM 136 MG/DL (74-106); PHOSPHORUS 6.3 MG/DL (2.5-4.9); SODIUM (NA) 138 MEQ/L (136-145); TOTAL BILIRUBIN ADULT 0.2 MG/DL (0.2-1.0)
--- NOTE | 2017-07-04 05:20 | RADRPT ---
EXAM DATE/TIME: 07/04/2017 03:18 [facility] COMPARISON: CHEST SINGLE AP, July 02, 2017, 10:31. INDICATIONS : Short of breath. MEDICAL HISTORY : Cardiovascular disease. SURGICAL HISTORY : CABG. ENCOUNTER: Subsequent ACUITY: 1 week PAIN SCORE: 0/10 LOCATION: Bilateral chest FINDINGS: Portable AP view of the chest demonstrates a normal-sized cardiac silhouette. ETT and nasogastric tub e are in place. Multiple EKG lines overlie the patient. No pneumothorax is visualized. There is right basilar pleural-parenchymal opacity and atelectasis versus consolidation at the left lung base. CONCLUSION: 1. Slight increased right basilar opacity representing either atelectasis, consolidation, and/or effu fozia. 2. Mild increased atelectasis or consolidation at the left lung base. Dante Montes MD on July 04, 2017 at 5:18 Board Certified Radiologist. This report was verified electronically.
[2017-07-04] MEDS: LEVOTHYROXINE SODIUM 50 MCG TAB PO SCH (05:40)
[2017-07-04] MEDS: methylPREDNISolone SOD SUCC 40 MG/1 ML VIAL IV PUSH SCH ×3 (05:40→22:19)
[2017-07-04] MEDS: CHLORHEXIDINE 0.12% (ORAL KIT) 15 ML CUP MT SCH ×2 (08:38→20:14)
[2017-07-04] MEDS: LEVOFLOXACIN/DEXTROSE 250 MG/50 ML IV SCH (08:39)
[2017-07-04] MEDS: ASPIRIN 81 MG CHEW TAB OG-TUBE SCH (08:39)
[2017-07-04] MEDS: CARVEDILOL 3.125 MG TAB PO SCH ×2 (08:39→20:02)
[2017-07-04] MEDS: FAMOTIDINE 20 MG/2 ML VIAL IV PUSH SCH ×3 (08:40→20:03)
[2017-07-04] MEDS: FUROSEMIDE 100 MG/10 ML VIAL IV PUSH SCH (08:40)
[2017-07-04] MEDS: SODIUM CHLORIDE 0.9% FLUSH 10 ML FLUSH IV FLUSH SCH ×2 (08:41→20:03)
--- NOTE | 2017-07-04 09:01 | HHI.CCPN ---
Subjective Remarks/Hospital Course This is an 86-year-old female with a history of breast cancer status post right mastectomy, PE in 2010, who presented overnight with shortness of breath was found to have an elevated troponin at 1.89, BNP of 3291, creatinine 1.9, sodium 136, WBCs 12,000. She was admitted for workup of her shortness of breath, possible heart failure. To my knowledge and brief review of medical records she does not have a history of heart failure. This morning she had sudden acute change in mental status. Stroke alert was called. At the same time, should increasing oxygen requirement. When I evaluated the patient, she was obtunded with agonal respirations. I emergently intubated patient. We went down for stat CT head which was negative for acute bleed. We then proceeded for MRI/MRA of the brain. I did perform + critical care ultrasound which demonstrated severe left ventricular systolic dysfunction, preserved RV function , no pericardial effusion, dilated IVC without respiratory variation. The patient does have a history of prior PE, is currently on a heparin drip for possible NSTEMI, given her preserved RV function, is unlikely that massive PE has caused her acute decline. Given her elevated creatinine, we will avoid pulmonary angiogram at this time. Due to the patient's critical condition, no additional information is available from her. Due to the emergent nature of the consult, a complete review of the medical record was unavailable to me. 07/03 Patient is intubated and sedated with Fentanyl and Versed drips. On Heparin drip. Afebrile. 07/04 Patient remains intubated, sedated with Versed and Fentanyl drips. Afebrile.On Heparin drip. Objective Vital Signs Date Time Temp Pulse Resp B/P (MAP) Pulse Ox O2 Delivery O2 Flow Rate FiO2 07/04/17 08:21 96 30 07/04/17 06:00 74 07/04/17 04:00 96.0 12 192/86 (121) 07/02/17 04:00 Nasal Cannula 3.00 Intake and Output 07/04/17 07/04/17 07/05/17 08:00 16:00 00:00 Intake Total 492 ml Output Total 450 ml Balance 42 ml Result Diagram: 07/04/17 0402 07/04/17 0402 Other Results Laboratory Tests Test 07/03/17 12:12 07/04/17 04:02 07/04/17 08:30 Blood Gas Puncture Site LT RADIAL Blood Gas Patient Temperature 98.6 Blood Gas HCO3 23 mmol/L Blood Gas Base Excess -2.1 mmol/L Blood Gas Oxygen Saturation 96 % Arterial Blood pH 7.34 Arterial Blood Partial Pressure CO2 44 mmHg Arterial Blood Partial Pressure O2 115 mmHg Arterial Blood Oxygen Content 17.2 Vol % Arterial Blood Carboxyhemoglobin 0.7 % Arterial Blood Methemoglobin 1.2 % Blood Gas Hemoglobin 12.6 G/DL Oxygen Delivery Device VENTILATOR Blood Gas Ventilator Setting PRVC/AC Blood Gas Inspired Oxygen 40 % White Blood Count 9.0 TH/MM3 Red Blood Count 4.00 MIL/MM3 Hemoglobin 13.3 GM/DL Hematocrit 39.4 % Mean Corpuscular Volume 98.6 FL Mean Corpuscular Hemoglobin 33.2 PG Mean Corpuscular Hemoglobin Concent 33.6 % Red Cell Distribution Width 13.9 % Platelet Count 169 TH/MM3 Mean Platelet Volume 10.1 FL Neutrophils (%) (Auto) 93.0 % Lymphocytes (%) (Auto) 3.8 % Monocytes (%) (Auto) 3.2 % Eosinophils (%) (Auto) 0.0 % Basophils (%) (Auto) 0.0 % Neutrophils # (Auto) 8.3 TH/MM3 Lymphocytes # (Auto) 0.3 TH/MM3 Monocytes # (Auto) 0.3 TH/MM3 Eosinophils # (Auto) 0.0 TH/MM3 Basophils # (Auto) 0.0 TH/MM3 CBC Comment DIFF FINAL Differential Comment Activated Partial Thromboplast Time 97.9 SEC Blood Urea Nitrogen 68 MG/DL Creatinine 2.75 MG/DL Random Glucose 136 MG/DL Total Protein 6.0 GM/DL Albumin 2.9 GM/DL Calcium Level 7.5 MG/DL Phosphorus Level 6.3 MG/DL Alkaline Phosphatase 50 U/L Aspartate Amino Transf (AST/SGOT) 22 U/L Alanine Aminotransferase (ALT/SGPT) 21 U/L Total Bilirubin 0.2 MG/DL Sodium Level 138 MEQ/L Potassium Level 3.9 MEQ/L Chloride Level 102 MEQ/L Carbon Dioxide Level 24.6 MEQ/L Anion Gap 11 MEQ/L Estimat Glomerular Filtration Rate 16 ML/MIN Imaging Last Impressions Chest X-Ray 07/04/17 0600 Signed Impressions: Service Date/Time: Tuesday, July 04, 2017 03:18 - CONCLUSION: 1. Slight increased right basilar opacity representing either atelectasis, consolidation , and/or effusion. 2. Mild increased atelectasis or consolidation at the left lung base. Dante Montes MD Renal Ultrasound 07/03/17 0000 Signed Impressions: Service Date/Time: Monday, July 03, 2017 09:38 - CONCLUSION: Medical renal disease on the right. Nonvisualization of the left kidney. Whether this reflects agenesis or atrophy is uncertain. Wilfredo Ibrahim MD Head Magnetic Resonance Angiography 07/02/17 0000 Signed Impressions: Service Date/Time: Sunday, July 02, 2017 09:06 - CONCLUSION: 1. No large vessel stenosis or aneurysm. 2. Normal variants as described above. Keith Kurtz MD Head CT 07/02/17 0000 Signed Impressions: Service Date/Time: Sunday, July 02, 2017 08:47 - CONCLUSION: Right basal ganglia lacunar infarct, indeterminate age. Otherwise unremarkable CT brain. Keith Kurtz MD Brain MRI 07/02/17 0000 Signed Impressions: Service Date/Time: Sunday, July 02, 2017 09:06 - CONCLUSION: 1. Old right-sided lacunar infarct versus prominent vascular channel. 2. Nonspecific white matter changes likely chronic ischemic small vessel vasculopathy with similar changes also noted within the brainstem and left thalamus. Keith Kurtz MD Objective Remarks GENERAL: Patient is 86 yo intubated and sedated SKIN: Warm and dry. HEAD: Normocephalic. EYES: No scleral icterus. No injection or drainage. NECK: Supple, trachea midline. No JVD or lymphadenopathy. CARDIOVASCULAR: Regular rate and rhythm without murmurs, gallops, or rubs. RESPIRATORY: Breath sounds equal bilaterally. No accessory muscle use. GASTROINTESTINAL: Abdomen soft, non-tender, nondistended. MUSCULOSKELETAL: No cyanosis, or edema. BACK: Nontender without obvious deformity. No CVA tenderness. Neuro: Sedated A/P Assessment and Plan Plan by systems: Neurologic: Metabolic encephalopathy - CT head 07/02: Negative for acute change, old right basal ganglia stroke - MRI/MRA brain 07/02: No acute findings -EEG 07/02: Mod. encephalopathy - On Fentanyl and Versed drip for sedation goal RASS -2. Daily sedation vacation -Place on Precedex drip to facilitate with weaning trials. d/c Versed -Neuro is following- Dr. Burns. Respiratory: Acute hypoxic and hypercarbic respiratory failure - Head of bed elevated -Continue with vents support keep sat >92% -Bronchodilators, ICU vent bundle, SBT daily as mireya. Cardiovascular: NSTEMI CHF- Acute systolic Cardiomyopathy Monitor HR and HAMMAD keep MAP>65mmHg - cardiology is following- Dr. Beltre -Echo showed EF 30-35%, Global hypokinesis - on Coreg 3.125mg BID and ASA 81mg daily continue with heparin drip. Renal: Acute kidney injury superimposed on chronic renal insufficiency, unknown stage - Monitor renal function, I/O's, avoid nephrotoxins -Cr: 2.75 today from 2.44 - real US: medical renal disease on right, left kidney not visualized, -Lasix 40mg Q12, Renal is following- Dr. Crouch GI: Acute protein calorie malnutrition- moderate -tube feeds- Nepro with goal rate 40ml/hr - on Pepcid for GI prophylaxis Heme History of PE in 2010 - On heparin drip - Monitor CBC, coags ID UTI Leukocytosis MRSA pneumonia Continue Levaquin, add Zyvox and monitor for sign of infections ( Fever, WBC) 2/5 sputum cx: MRSA 2/ nasal washing negative for Influenza. Urine cx: Group D enterococcus Endocrine: Hyperglycemia of critical illness -- SSI with accuchecks Prophylaxis: GI Prophylaxis n Pepcid DVT Prophylaxis -- SCDs Heparin drip Lines: Peripheral IVs Collier Level 3 Evonne Hunt MD Jul 04, 2017 09:01
[2017-07-04] MEDS: DEXMEDETOMIDINE INJ 200 MCG in SODIUM CHLORIDE 0.9% INJ 50 ML IV PRN ×2 (11:57→22:20)
[2017-07-04] MEDS: fentaNYL DRIP 250 ML IV PRN (11:57)
--- NOTE | 2017-07-04 11:57 | HHI.NPPN ---
Subjective Renal Failure: Acute Interval History Remains intubated and unresponsive. Renal function slightly worse. Daughter is at bedside. (Nely Mustafa) Review of Systems General General Remarks unable to obtain (Nely Mustafa) Objective Data Data Vital Signs Date Time Temp Pulse Resp B/P (MAP) Pulse Ox O2 Delivery O2 Flow Rate FiO2 07/04/17 11:29 92 30 07/04/17 10:00 71 07/04/17 10:00 98.0 71 12 97/50 (66) 91 07/04/17 09:00 69 47 110/53 (72) 95 07/04/17 09:00 69 07/04/17 08:21 96 30 07/04/17 08:00 40 07/04/17 08:00 94.0 73 18 161/98 (119) 94 07/04/17 08:00 73 07/04/17 07:00 68 07/04/17 07:00 68 12 165/78 (107) 96 07/04/17 06:00 74 07/04/17 04:00 77 07/04/17 04:00 96.0 77 12 192/86 (121) 98 07/04/17 04:00 30 07/04/17 03:35 95 30 07/04/17 02:00 68 07/04/17 01:47 94 30 07/04/17 00:00 97.4 63 13 153/70 (97) 98 07/04/17 00:00 63 07/04/17 00:00 30 07/03/17 23:13 98 30 07/03/17 22:00 66 07/03/17 20:05 97 30 07/03/17 20:00 30 07/03/17 20:00 66 07/03/17 20:00 97.5 66 12 118/59 (78) 97 07/03/17 16:40 100 30 07/03/17 16:00 40 07/03/17 16:00 64 07/03/17 16:00 98.1 64 15 93/52 (66) 99 07/03/17 15:00 64 15 91/53 (66) 99 07/03/17 15:00 64 07/03/17 14:00 67 07/03/17 14:00 67 15 103/54 (70) 98 07/03/17 13:00 68 15 95/51 (66) 98 07/03/17 12:05 98 40 07/03/17 12:00 90 15 110/59 (76) 98 07/03/17 12:00 90 (Nely Mustafa) -: 07/04/17 0402 07/04/17 0402 Microbiology 07/03/17 Gram Stain - Final, Resulted 07/03/17 Sputum Culture, Resulted Pending Imaging Last 72 hours Impressions Chest X-Ray 07/04/17 0600 Signed Impressions: Service Date/Time: Tuesday, July 04, 2017 03:18 - CONCLUSION: 1. Slight increased right basilar opacity representing either atelectasis, consolidation , and/or effusion. 2. Mild increased atelectasis or consolidation at the left lung base. Dante Montes MD Renal Ultrasound 07/03/17 0000 Signed Impressions: Service Date/Time: Monday, July 03, 2017 09:38 - CONCLUSION: Medical renal disease on the right. Nonvisualization of the left kidney. Whether this reflects agenesis or atrophy is uncertain. Wilfredo Ibrahim MD Head Magnetic Resonance Angiography 07/02/17 0000 Signed Impressions: Service Date/Time: Sunday, July 02, 2017 09:06 - CONCLUSION: 1. No large vessel stenosis or aneurysm. 2. Normal variants as described above. Keith Kurtz MD Head CT 07/02/17 0000 Signed Impressions: Service Date/Time: Sunday, July 02, 2017 08:47 - CONCLUSION: Right basal ganglia lacunar infarct, indeterminate age. Otherwise unremarkable CT brain. Keith Kurtz MD Chest X-Ray 07/02/17 0000 Signed Impressions: Service Date/Time: Sunday, July 02, 2017 10:31 - CONCLUSION: 1. Bibasilar densities. 2. Endotracheal tube 2.5 cm above edda. Keith Kurtz MD Brain MRI 07/02/17 0000 Signed Impressions: Service Date/Time: Sunday, July 02, 2017 09:06 - CONCLUSION: 1. Old right-sided lacunar infarct versus prominent vascular channel. 2. Nonspecific white matter changes likely chronic ischemic small vessel vasculopathy with similar changes also noted within the brainstem and left thalamus. Keith Kurtz MD Chest X-Ray 2/3/18 4043 Signed Impressions: Service Date/Time: Sunday, July 02, 2017 00:03 - CONCLUSION: Basilar airspace disease is noted. Ciro Lau MD (Nely Mustafa [employer]) Physical Exam General Appearance: No Acute Distress Appearance Remarks unresponsive on vent, ETT in place (Nely Mustafa [employer]. [employer]) Eyes Eye Exam: Pupils Equal (Nely Mustafa [employer]. [employer]) Throat Throat Exam: Oral Mucosa [place] & Moist (Nely Mustafa [employer]. [employer]) Pulmonary Resp Exam: No Distress, Rhonchi Resp Remarks expiratory rhonchi (Nely Mustafa [employer]. [employer]) Cardiology CV Exam: Regular, Normal Sinus Rhythm (Nely Mustafa [employer]. [employer]) Gastrointestinal/Abdomen GI Exam: Non-Tender, Bowel Sounds Present (Nely Mustafa [employer]. [employer]) Musculoskeletal MS Exam: Joints Intact, Normal Tone, Unable to Ambulate (Nely Mustafa [employer]. [employer]) Integumentary Skin Exam: Warm, Dry, Intact (Nely Mustafa [employer]. [employer]) Extremeties Extremities Exam: No Edema, Pedal Pulses Palpable (Nely Mustafa [employer]. [employer]) Neurologic Neuro Exam: Unresponsive, Sedated (Nely Mustafa [employer]) VTE Prophylaxis Meds: Heparin (Nely Mustafa [employer]. [employer]) Assessment/Plan Discussed Condition With: Daughter Assessment Summary: LEE/Acute Renal Failure, CKD Stage III, CKD Stage IV Problem List: (1) Acute renal failure ICD Codes: N17.9 - Acute kidney failure, unspecified Plan: She most likely has underlying CKD, in 2010 her creatinine was 1.6-1.7, GFR 28-30, Stage 3-4 LEE may be due to CHF exacerbation and increased renal vein pressure In addition she suffered NSTEMI Renal function slightly worse Marginal urine output, continue to monitor On Lasix 40 daily, continue UTI: group D enterococcus, on Levaquin Avoid nephrotoxic agents. Renal US not visualized left kidney, Dry CT abd/pelvis ordered for today Start calcium acetate with tube feeding for hyperphosphatemia Repeat labs in AM Maintain MAP > 65mmHg (2) CHF (congestive heart failure) ICD Codes: I50.9 - Heart failure, unspecified Status: Acute Plan: Echo shows EF 30-35% Follow fluid status, I/O Diuresis as above, titrate as needed Achieve negative fluid balance Avoid IVF On 30% FiO2 currently, CPAP and vent weening as tolerated and per protocol (3) Non-ST elevation [place] (NSTEMI) ICD Codes: I21.4 - Non-ST elevation (NSTEMI) myocardial infarction Status: Acute Plan: Cardiology following, troponin trending down On Heparin gtt, appreciate further recommendations (4) Hypertension ICD Codes: I10 - Essential (primary) hypertension Plan: Monitor blood pressure Borderline hypotensive On coreg (Nely Mustafa) Problem List: (1) Acute renal failure ICD Codes: N17.9 - Acute kidney failure, unspecified Plan: She most likely has underlying CKD, in 2010 her creatinine was 1.6-1.7, GFR 28-30, Stage 3-4 LEE may be due to CHF exacerbation and increased renal vein pressure In addition she suffered NSTEMI Renal function slightly worse Marginal urine output, continue to monitor On Lasix 40 daily, continue UTI: group D enterococcus, on Levaquin Avoid nephrotoxic agents. Renal US not visualized left kidney, Dry CT abd/pelvis ordered for today Start calcium acetate with tube feeding for hyperphosphatemia Repeat labs in AM Maintain MAP > 65mmHg (2) CHF (congestive heart failure) ICD Codes: I50.9 - Heart failure, unspecified Status: Acute Plan: Echo shows EF 30-35% Follow fluid status, I/O Diuresis as above, titrate as needed Achieve negative fluid balance Avoid IVF On 30% FiO2 currently, CPAP and vent weening as tolerated and per protocol (3) Non-ST elevation [place] (NSTEMI) ICD Codes: I21.4 - Non-ST elevation (NSTEMI) myocardial infarction Status: Acute Plan: Cardiology following, troponin trending down On Heparin gtt, appreciate further recommendations (4) Hypertension ICD Codes: I10 - Essential (primary) hypertension Plan: Monitor blood pressure Borderline hypotensive On coreg Plan patient was seen and examined. Agree with above assessment and plan. Renal function is slightly worse. CT abdomen today. Discussed with daughter. Prognosis is guarded. (Danie Crouch MD) Nely Mustafa Jul 04, 2017 11:57 Danie Crouch MD Jul 04, 2017 14:32
[2017-07-04] MEDS: CALCIUM ACETATE 667 MG CAP PO SCH ×2 (13:44→18:15)
[2017-07-04] MEDS: LINEZOLID 600 MG TAB PO SCH ×2 (14:55→20:03)
--- NOTE | 2017-07-04 17:29 | PD.CARD.PN ---
Subjective Subjective Remarks Intubated, sedated Objective Medications Current Medications Medications (Trade) Dose Ordered Sig/Johanna Route Start Time Stop Time Status Last Admin Heparin Sodium/ Dextrose 250 ml @ 7 mls/hr TITRATE PRN IV 07/02/17 02:00 07/03/17 14:34 (NS Flush) 2 ml UNSCH PRN IV FLUSH 07/02/17 02:00 (NS Flush) 2 ml BID IV FLUSH 07/02/17 09:00 07/04/17 08:41 (Tylenol) 650 mg Q4H PRN PO 07/02/17 02:00 (Zofran Inj) 4 mg Q6H PRN IVP 07/02/17 02:00 (Narcan Inj) 0.4 mg UNSCH PRN IV PUSH 07/02/17 02:00 (Senokot) 17.2 mg Q12H PRN PO 07/02/17 02:00 (Dulcolax Supp) 10 mg DAILY PRN RECTAL 07/02/17 02:00 (Lactulose Liq) 30 ml DAILY PRN PO 07/02/17 02:00 (Synthroid) 50 mcg DAILY@0700 PO 07/02/17 07:00 07/04/17 05:40 (Catapres) 0.1 mg Q6H PRN PO 07/02/17 06:45 07/04/17 04:30 (Trandate) 100 mg DAILY PO 07/02/17 07:15 Future Hold 07/02/17 07:12 (SoluMEDROL INJ) 40 mg Q8HR IV PUSH 07/02/17 07:15 07/04/17 13:44 (K-Lyte Cl Eff) 50 meq UNSCH PRN PO 07/02/17 10:00 (Peridex 0.12% Liq) 15 ml BID@08,20 MT 07/02/17 20:00 07/04/17 08:38 (Duoneb Neb) 1 ampule Q6HR NEB INH 07/02/17 10:00 07/04/17 14:51 (Duoneb Neb) 1 ampule Q2HR NEB PRN INH 07/02/17 10:00 Fentanyl Citrate 250 ml @ 5 mls/hr TITRATE PRN IV 07/02/17 10:30 07/04/17 11:57 (Brethine Inj) 1 mg UNSCH PRN SQ 07/02/17 13:30 (Coreg) 3.125 mg Q12HR PO 07/03/17 11:00 07/04/17 08:39 (D50w (Vial) Inj) 50 ml UNSCH PRN IV PUSH 07/03/17 09:30 (Glucagon Inj) 1 mg UNSCH PRN OTHER 07/03/17 09:30 (NovoLIN R SUPPLEMENTAL SCALE) 1 Q4H SQ 07/03/17 10:00 07/04/17 14:23 (Aspirin Chew) 81 mg DAILY OG-TUBE 07/03/17 11:00 07/04/17 08:39 (Pepcid Inj) 10 mg Q12HR IV PUSH 07/03/17 21:00 (Lasix Inj) 40 mg DAILY IV PUSH 07/04/17 09:00 07/04/17 08:40 Levofloxacin/ Dextrose 50 ml @ 50 mls/hr Q24H IV 07/04/17 10:00 07/04/17 08:39 Dexmedetomidine HCl 200 mcg/ Sodium Chloride 52 ml @ 3.25 mls/hr TITRATE PRN IV 07/04/17 09:00 07/04/17 11:57 (Phoslo) 667 mg TID PO 07/04/17 13:00 07/04/17 13:44 (Zyvox) 600 mg Q12HR PO 07/04/17 14:45 07/04/17 14:55 Vital Signs / I&O Vital Signs Date Time Temp Pulse Resp B/P (MAP) Pulse Ox O2 Delivery O2 Flow Rate FiO2 07/04/17 16:15 100 100 07/04/17 15:00 71 12 106/59 (75) 97 07/04/17 15:00 71 07/04/17 14:52 95 30 07/04/17 14:45 72 12 94/51 (65) 94 07/04/17 14:30 71 12 94/51 (65) 93 07/04/17 14:15 71 12 80/48 (59) 93 07/04/17 14:00 74 07/04/17 14:00 74 17 82/43 (56) 93 07/04/17 13:00 75 40 103/59 (74) 91 07/04/17 13:00 75 07/04/17 12:00 99.8 73 13 105/57 (73) 92 07/04/17 12:00 40 07/04/17 12:00 73 07/04/17 11:29 92 30 07/04/17 11:00 71 12 101/53 (69) 91 07/04/17 11:00 71 18 10:00 71 07/04/17 10:00 98.0 71 12 97/50 (66) 91 07/04/17 09:00 69 47 110/53 (72) 95 07/04/17 09:00 69 07/04/17 08:21 96 30 07/04/17 08:00 40 07/04/17 08:00 94.0 73 18 161/98 (119) 94 07/04/17 08:00 73 07/04/17 07:00 68 07/04/17 07:00 68 12 165/78 (107) 96 07/04/17 06:00 74 07/04/17 04:00 77 07/04/17 04:00 96.0 77 12 192/86 (121) 98 07/04/17 04:00 30 07/04/17 03:35 95 30 07/04/17 02:00 68 07/04/17 01:47 94 30 07/04/17 00:00 97.4 63 13 153/70 (97) 98 07/04/17 00:00 63 07/04/17 00:00 30 07/03/17 23:13 98 30 07/03/17 22:00 66 07/03/17 20:05 97 30 07/03/17 20:00 30 07/03/17 20:00 66 07/03/17 20:00 97.5 66 12 118/59 (78) 97 I/O 07/03/1707/03/18 07/03/18 2//18 //18 18 07:00 15:00 23:00 07:00 15:00 23:00 Intake Total 254.6 ml 429 ml 492 ml 133 ml Output Total 400 ml 125 ml 450 ml Balance -145.4 ml 429 ml -125 ml 42 ml 133 ml Intake IV Total 254.6 ml 429 ml 492 ml 133 ml Output Urine Total 400 ml 125 ml 450 ml Gastric Drainage Total 0 ml # Bowel Movements 0 0 Physical Exam GENERAL: Intubated, sedated CARDIOVASCULAR: Regular rate and rhythm without murmurs, gallops, or rubs. RESPIRATORY: Clear to auscultation. Breath sounds equal bilaterally. No wheezes , rales, or rhonchi. GASTROINTESTINAL: Abdomen soft, non-tender, nondistended. Normal active bowel sounds MUSCULOSKELETAL: Extremities without clubbing, cyanosis, or edema. NEURO: Intubated, sedated Laboratory Laboratory Tests Test 07/04/17 04:02 07/04/17 08:30 07/04/17 14:29 White Blood Count 9.0 TH/MM3 Red Blood Count 4.00 MIL/MM3 Hemoglobin 13.3 GM/DL Hematocrit 39.4 % Mean Corpuscular Volume 98.6 FL Mean Corpuscular Hemoglobin 33.2 PG Mean Corpuscular Hemoglobin Concent 33.6 % Red Cell Distribution Width 13.9 % Platelet Count 169 TH/MM3 Mean Platelet Volume 10.1 FL Neutrophils (%) (Auto) 93.0 % Lymphocytes (%) (Auto) 3.8 % Monocytes (%) (Auto) 3.2 % Eosinophils (%) (Auto) 0.0 % Basophils (%) (Auto) 0.0 % Neutrophils # (Auto) 8.3 TH/MM3 Lymphocytes # (Auto) 0.3 TH/MM3 Monocytes # (Auto) 0.3 TH/MM3 Eosinophils # (Auto) 0.0 TH/MM3 Basophils # (Auto) 0.0 TH/MM3 CBC Comment DIFF FINAL Differential Comment Activated Partial Thromboplast Time 97.9 SEC 49.8 SEC 46.9 SEC Blood Urea Nitrogen 68 MG/DL Creatinine 2.75 MG/DL Random Glucose 136 MG/DL Total Protein 6.0 GM/DL Albumin 2.9 GM/DL Calcium Level 7.5 MG/DL Phosphorus Level 6.3 MG/DL Alkaline Phosphatase 50 U/L Aspartate Amino Transf (AST/SGOT) 22 U/L Alanine Aminotransferase (ALT/SGPT) 21 U/L Total Bilirubin 0.2 MG/DL Sodium Level 138 MEQ/L Potassium Level 3.9 MEQ/L Chloride Level 102 MEQ/L Carbon Dioxide Level 24.6 MEQ/L Anion Gap 11 MEQ/L Estimat Glomerular Filtration Rate 16 ML/MIN Imaging Last 24 hours Impressions Chest X-Ray 07/04/17 0600 Signed Impressions: Service Date/Time: Tuesday, July 04, 2017 03:18 - CONCLUSION: 1. Slight increased right basilar opacity representing either atelectasis, consolidation , and/or effusion. 2. Mild increased atelectasis or consolidation at the left lung base. Dante Montes MD Assessment and Plan Problem List: (1) Cardiomyopathy ICD Codes: I42.9 - Cardiomyopathy, unspecified Plan: LVEF 30-35%; ideally would cath once medically stable to determine etiology but Cr. bumping so may not be feasible (2) CHF (congestive heart failure) ICD Codes: I50.9 - Heart failure, unspecified Status: Acute Plan: Still having some trouble w/ oxygenation but w/ worsening renal failure, deferring diuretics to renal team (3) Non-ST elevation [place] (NSTEMI) ICD Codes: I21.4 - Non-ST elevation (NSTEMI) myocardial infarction Status: Acute Plan: would plan for cath once stable depending on renal fxn; continue medical mgt; ok to stop heparin from cardiac standpoint. Assessment and Plan Discussed plan at length with the patient's daughter; prognosis guarded; if extubated and renal fxn improves, would consider cath; for now will sign off but be available as needed, please call with questions. Jayme Beltre MD Jul 04, 2017 17:29
--- NOTE | 2017-07-04 17:34 | RADRPT ---
EXAM DATE/TIME: 07/04/2017 16:27 [facility] COMPARISON: No previous studies available for comparison. INDICATIONS : Diffuse abdomen pain. ORAL CONTRAST: No oral contrast ingested. RADIATION DOSE: 6.64 CTDIvol (mGy) MEDICAL HISTORY : Cardiovascular disease. Hypertension. Carcinoma, breast.PE. SURGICAL HISTORY : section. Bilateral lumpectomy ENCOUNTER: Initial ACUITY: 1 day PAIN SCALE: Non-responsive LOCATION: Left kidney region. TECHNIQUE: Volumetric scanning of the abdomen and pelvis was performed. Using automated exposure control and ad justment of the mA and/or kV according to patient size, radiation dose was kept as low as reasonably achievable to obtain optimal diagnostic quality images. DICOM format image data is available electro nically for review and comparison. FINDINGS: Uncomplicated colonic diverticulosis is noted. There is no acute diverticulitis. No free intraperiton eal air is noted. The appendix is normal. There is marked atrophy of the left kidney. There is a hype rdense lesion arising from the left kidney measuring 2.8 cm consistent with hyperdense cyst or possib le solid lesion. No hydronephrosis is noted. Perinephric streaking this is noted to bilaterally and i s slightly worse on the left than the right. Some sludge is noted within the gallbladder. There is ec lindy of the abdominal aorta. A Collier catheter is noted within the urinary bladder which is nondisten ded. Degenerative changes are noted throughout the lumbar and lower thoracic spine. Scoliosis of the thoracolumbar spine is noted. Small bilateral pleural effusions are noted. CONCLUSION: 1. Uncomplicated colonic diverticulosis. 2. 2.8 cm hyperdense exophytic lesion arising from the atrophic left kidney consistent with hyperdens e cyst or possible solid lesion. 3. Probable sludge within the gallbladder. 4. Degenerative changes and scoliosis of the thoracolumbar spine. 5. Small bilateral pleural effusions. Abdelrahman Pritchard MD on July 04, 2017 at 17:24 Board Certified Radiologist. This report was verified electronically.
--- NOTE | 2017-07-04 19:53 | HHI.PR ---
Subjective Remarks Sedated with versed and Fentanyl. On Heparin drip.On antibiotics for MRSA Pneumonia. No fever. FIO2 at 40 % and on Vent rate 16 CXR shows basal infiltrates Objective Vital Signs Date Time Temp Pulse Resp B/P (MAP) Pulse Ox O2 Delivery O2 Flow Rate FiO2 07/04/17 19:40 94 30 2/18 18:00 83 2/18 17:30 88 14 110/56 (74) 93 18 17:00 90 18 17:00 90 13 142/70 (94) 95 18 16:15 100 100 /11/13 16:00 97.7 93 12 164/80 (108) 95 07/04/17 16:00 40 07/04/17 16:00 93 07/04/17 15:00 71 12 106/59 (75) 97 /11/13 15:00 71 18 14:52 95 30 /18 14:45 72 12 94/51 (65) 94 //18 14:30 71 12 94/51 (65) 93 //18 14:15 71 12 80/48 (59) 93 07/04/17 14:00 74 2/18 14:00 74 17 82/43 (56) 93 18 13:00 75 40 103/59 (74) 91 07/04/17 13:00 75 /18 12:00 99.8 73 13 105/57 (73) 92 07/04/17 12:00 40 07/04/17 12:00 73 07/04/17 11:29 92 30 07/04/17 11:00 71 12 101/53 (69) 91 07/04/17 11:00 71 07/04/17 10:00 71 18 10:00 98.0 71 12 97/50 (66) 91 07/04/17 09:00 69 47 110/53 (72) 95 07/04/17 09:00 69 218 08:21 96 30 07/04/17 08:00 40 18 08:00 94.0 73 18 161/98 (119) 94 07/04/17 08:00 73 07/04/17 07:00 68 07/04/17 07:00 68 12 165/78 (107) 96 07/04/17 06:00 74 07/04/17 04:00 77 07/04/17 04:00 96.0 77 12 192/86 (121) 98 07/04/17 04:00 30 07/04/17 03:35 95 30 07/04/17 02:00 68 07/04/17 01:47 94 30 07/04/17 00:00 97.4 63 13 153/70 (97) 98 07/04/17 00:00 63 07/04/17 00:00 30 07/03/17 23:13 98 30 07/03/17 22:00 66 07/03/17 20:05 97 30 07/03/17 20:00 30 07/03/17 20:00 66 07/03/17 20:00 97.5 66 12 118/59 (78) 97 I/O 07/03/17 07/03/17 07/03/17 07/04/17 07/04/17 07/04/17 07:00 15:00 23:00 07:00 15:00 23:00 Intake Total 254.6 ml 429 ml 492 ml 183 ml 332 ml Output Total 400 ml 125 ml 450 ml 275 ml Balance -145.4 ml 429 ml -125 ml 42 ml 183 ml 57 ml Intake IV Total 254.6 ml 429 ml 492 ml 183 ml Tube Feeding 332 ml Output Urine Total 400 ml 125 ml 450 ml 275 ml Gastric Drainage Total 0 ml # Bowel Movements 0 0 0 Result Diagram: 07/04/17 0402 07/04/17401 Objective Remarks GENERAL: This averagely built elderly lady is intubated, sedated on ventilator support. HEAD, EYES, EARS, NOSE, THROAT: Head normocephalic. The pupils are reactive and equal. Tongue is moist. Throat is clear. NECK: The neck is supple with venous distention. Trachea is midline. No thyroid enlargement. CHEST: Decreased breath sounds at the bases with occasional wheezes scattered. HEART: The heart sounds are irregular. S1 and S2. No definite murmur. No S3. ABDOMEN: The abdomen is soft and nontender. No organomegaly. The bowel sounds are active. EXTREMITIES: Decreased pulses. NEUROLOGIC: Reflexes are not well-elicited. The patient is sedated. SKIN: No lesions are noted. Assessment and Plan Assessment and Plan ASSESSMENT: 1. Ventilator-dependent respiratory failure. 2. Metabolic encephalopathy. 3. Hypercapnic respiratory failure. 4. Congestive heart failure. 5. NSTEMI. 6. Acute kidney injury with chronic kidney disease. 7. COPD with emphysema. Plan : 1. Wean FIo2 to Keep sat >92. 2. Wean IV Sedation. 3. Cont Lasix 40 mg IV daily. 4. CXR CBC,BMP in am 5. Nebs qid , duoneb 6. Antibiotics as ordered Per ID 7. CPAP trial in am. Bucky Og MD Jul 04, 2017 19:53
[2017-07-05] VITALS (37 sets, daily range): BP systolic 92–180; BP diastolic 50–96; PULSE 58–126; RESP 11–42; TEMP 94.8–99.6; O2SAT 84–99
[2017-07-05] MEDS: INSULIN NovoLIN REGULAR SUPPLEMENTAL SCALE SQ SCH ×6 (02:00→21:52)
[2017-07-05] MEDS: RESP: ALBUTEROL 2.5 MG/IPRATROPIUM 0.5 MG NEB (SCH) INH ×4 (03:19→20:18)
[2017-07-05] MEDS: LEVOTHYROXINE SODIUM 50 MCG TAB PO SCH (05:22)
[2017-07-05] MEDS: methylPREDNISolone SOD SUCC 40 MG/1 ML VIAL IV PUSH SCH ×3 (05:22→20:35)
[2017-07-05] MEDS: DEXMEDETOMIDINE INJ 200 MCG in SODIUM CHLORIDE 0.9% INJ 50 ML IV PRN ×4 (05:23→18:17)
[2017-07-05 05:25] LABS: AUTOMATED NEUTROPHIL # 8.3 TH/MM3 (1.8-7.7); BASOPHIL % 0.1 % (0.0-2.0); HEMATOCRIT 39.5 % (35.0-46.0); HEMOGLOBIN 13.4 GM/DL (11.6-15.3); LYMPH % 3.2 % (9.0-44.0); LYMPHOCYTE # 0.3 TH/MM3 (1.0-4.8); MEAN CORPUSCULAR HEMOGLOBIN 33.5 PG (27.0-34.0); MEAN CORPUSCULAR HGB CONC 33.8 % (32.0-36.0); MEAN PLATELET VOLUME 10.5 FL (7.0-11.0); MONOCYTE # 0.3 TH/MM3 (0-0.9); NEUT % 93.7 % (16.0-70.0); PLATELET COUNT 193 TH/MM3 (150-450); RED BLOOD COUNT 3.99 MIL/MM3 (4.00-5.30); RED CELL DISTRIBUTION WIDTH 13.6 % (11.6-17.2); WHITE BLOOD COUNT 8.9 TH/MM3 (4.0-11.0)
[2017-07-05 05:43] LABS: BICARBONATE 24.3 MEQ/L (21.0-32.0); CALCIUM 7.8 MG/DL (8.5-10.1); CREATININE 3.22 MG/DL (0.50-1.00); MAGNESIUM 2.5 MG/DL (1.5-2.5); PHOSPHORUS 6.3 MG/DL (2.5-4.9)
[2017-07-05] MEDS: CHLORHEXIDINE 0.12% (ORAL KIT) 15 ML CUP MT SCH ×2 (08:30→20:35)
[2017-07-05] MEDS: SODIUM CHLORIDE 0.9% FLUSH 10 ML FLUSH IV FLUSH SCH ×2 (08:30→20:36)
[2017-07-05] MEDS: CARVEDILOL 3.125 MG TAB PO SCH ×2 (08:30→20:40)
[2017-07-05] MEDS: LINEZOLID 600 MG TAB PO SCH ×2 (08:30→20:35)
[2017-07-05] MEDS: CALCIUM ACETATE 667 MG CAP PO SCH ×3 (08:30→17:38)
[2017-07-05] MEDS: FUROSEMIDE 100 MG/10 ML VIAL IV PUSH SCH (08:31)
[2017-07-05] MEDS: FAMOTIDINE 20 MG/2 ML VIAL IV PUSH SCH ×2 (08:31→20:36)
[2017-07-05] MEDS: ASPIRIN 81 MG CHEW TAB OG-TUBE SCH (08:31)
--- NOTE | 2017-07-05 08:54 | HHI.PR ---
Review/Management Diagnosis/Plan: (1) Encephalopathy, metabolic ICD Codes: G93.41 - Metabolic encephalopathy Status: Acute Plan: 06/30 resp distress/chf mri brain- old infarct. mra brain- no large vessel occlusion with hx of pulm embolus and depressed ef should be on coumadin long-term exam unchanged d/w daughter at bedside d/w cmm if fails cpap trials and renal function worsens, palliative care gfr 14 overall prognosis guarded will follow peripherally as needed (2) Acute exacerbation of COPD with asthma ICD Codes: J44.1 - Chronic obstructive pulmonary disease with (acute) exacerbation; J45.901 - Unspecified asthma with (acute) exacerbation Status: Acute Plan: per ccm (3) CHF (congestive heart failure) ICD Codes: I50.9 - Heart failure, unspecified Status: Acute Plan: per ccm/cardiology (4) Non-ST elevation OR (NSTEMI) ICD Codes: I21.4 - Non-ST elevation (NSTEMI) myocardial infarction Status: Acute Plan: seen by cardiology, felt to have ischemic cardiomyopathy Subjective Subjective Comments No acute events reported Active Medications Current Medications Medications (Trade) Dose Ordered Sig/Johanna Route Start Time Stop Time Status Last Admin Heparin Sodium/ Dextrose 250 ml @ 7 mls/hr TITRATE PRN IV 07/02/17 02:00 07/03/17 14:34 (NS Flush) 2 ml UNSCH PRN IV FLUSH 07/02/17 02:00 (NS Flush) 2 ml BID IV FLUSH 07/02/17 09:00 07/05/17 08:30 (Tylenol) 650 mg Q4H PRN PO 07/02/17 02:00 (Zofran Inj) 4 mg Q6H PRN IVP 07/02/17 02:00 (Narcan Inj) 0.4 mg UNSCH PRN IV PUSH 07/02/17 02:00 (Senokot) 17.2 mg Q12H PRN PO 07/02/17 02:00 (Dulcolax Supp) 10 mg DAILY PRN RECTAL 07/02/17 02:00 (Lactulose Liq) 30 ml DAILY PRN PO 07/02/17 02:00 (Synthroid) 50 mcg DAILY@0700 PO 07/02/17 07:00 07/05/17 05:22 (Catapres) 0.1 mg Q6H PRN PO 07/02/17 06:45 07/04/17 04:30 (Trandate) 100 mg DAILY PO 07/02/17 07:15 Future Hold 07/02/17 07:12 (SoluMEDROL INJ) 40 mg Q8HR IV PUSH 07/02/17 07:15 07/05/17 05:22 (K-Lyte Cl Eff) 50 meq UNSCH PRN PO 07/02/17 10:00 (Peridex 0.12% Liq) 15 ml BID@08,20 MT 07/02/17 20:00 07/05/17 08:30 (Duoneb Neb) 1 ampule Q6HR NEB INH 07/02/17 10:00 07/05/17 07:52 (Duoneb Neb) 1 ampule Q2HR NEB PRN INH 07/02/17 10:00 Fentanyl Citrate 250 ml @ 5 mls/hr TITRATE PRN IV 07/02/17 10:30 07/04/17 11:57 (Brethine Inj) 1 mg UNSCH PRN SQ 07/02/17 13:30 (Coreg) 3.125 mg Q12HR PO 07/03/17 11:00 07/05/17 08:30 (D50w (Vial) Inj) 50 ml UNSCH PRN IV PUSH 07/03/17 09:30 (Glucagon Inj) 1 mg UNSCH PRN OTHER 07/03/17 09:30 (NovoLIN R SUPPLEMENTAL SCALE) 1 Q4H SQ 07/03/17 10:00 07/05/17 05:22 (Aspirin Chew) 81 mg DAILY OG-TUBE 07/03/17 11:00 07/05/17 08:31 (Pepcid Inj) 10 mg Q12HR IV PUSH 07/03/17 21:00 07/05/17 08:31 (Lasix Inj) 40 mg DAILY IV PUSH 07/04/17 09:00 07/05/17 08:31 Levofloxacin/ Dextrose 50 ml @ 50 mls/hr Q24H IV 07/04/17 10:00 07/04/17 08:39 Dexmedetomidine HCl 200 mcg/ Sodium Chloride 52 ml @ 3.25 mls/hr TITRATE PRN IV 07/04/17 09:00 07/05/17 05:23 (Phoslo) 667 mg TID PO 07/04/17 13:00 07/05/17 08:30 (Zyvox) 600 mg Q12HR PO 07/04/17 14:45 07/05/17 08:30 Allergies Allergies Coded Allergies allopurinol (Unverified Allergy, Severe, RASH; SKIN PEELING, 01/10/17) coconut (Unverified Allergy, Severe, RESP DISTRESS, 01/10/17) levothyroxine (Unverified Allergy, Severe, ALLERGIC TO "GENERIC' SYNTHROID, ) levothyroxine sodium (Unverified Allergy, Severe, ALLERGIC TO "GENERIC' SYNTHROID, 01/10/17) penicillin G (Unverified Allergy, Severe, RASH, 01/10/17) tetanus toxoid, adsorbed (Unverified Allergy, Severe, 01/10/17) Uncoded Allergies DILL ( Allergy, Severe, 05/18/11) Review of Systems All other ROS: Unable to obtain Exam I&O / VS Vital Signs Date Time Temp Pulse Resp B/P (MAP) Pulse Ox O2 Delivery O2 Flow Rate FiO2 07/05/17 07:53 94 30 07/05/17 06:00 69 07/05/17 04:46 97 30 07/05/17 04:00 97.5 63 12 98/54 (69) 94 07/05/17 04:00 30 07/05/17 04:00 63 07/05/17 02:00 58 07/05/17 01:14 97 30 07/05/17 00:00 30 07/05/17 00:00 94.8 61 12 104/55 (71) 96 07/05/17 00:00 61 07/04/17 22:18 100 30 07/04/17 22:00 93 07/04/17 20:00 69 07/04/17 20:00 97.6 69 13 140/65 (90) 96 07/04/17 20:00 30 07/04/17 19:40 94 30 07/04/17 18:00 83 07/04/17 17:30 88 14 110/56 (74) 93 07/04/17 17:00 90 07/04/17 17:00 90 13 142/70 (94) 95 07/04/17 16:15 100 100 07/04/17 16:00 97.7 93 12 164/80 (108) 95 07/04/17 16:00 40 07/04/17 16:00 93 07/04/17 15:00 71 12 106/59 (75) 97 07/04/17 15:00 71 07/04/17 14:52 95 30 07/04/17 14:45 72 12 94/51 (65) 94 07/04/17 14:30 71 12 94/51 (65) 93 07/04/17 14:15 71 12 80/48 (59) 93 07/04/17 14:00 74 07/04/17 14:00 74 17 82/43 (56) 93 07/04/17 13:00 75 40 103/59 (74) 91 07/04/17 13:00 75 07/04/17 12:00 99.8 73 13 105/57 (73) 92 07/04/17 12:00 40 07/04/17 12:00 73 07/04/17 11:29 92 30 07/04/17 11:00 71 12 101/53 (69) 91 07/04/17 11:00 71 07/04/17 10:00 71 07/04/17 10:00 98.0 71 12 97/50 (66) 91 07/04/17 09:00 69 47 110/53 (72) 95 07/04/17 09:00 69 Exam Comments intubated, on sedative gtt's, does arouse, confused, not following, ou 2mm sluggish, mild blink to threat, face sym, damon to gravity with tactile stimulation, no clonus, planterflexor Objective Micro and Labs Laboratory Tests Test 07/04/17 14:29 07/05/17 04:40 Activated Partial Thromboplast Time 46.9 53.3 White Blood Count 8.9 Red Blood Count 3.99 Hemoglobin 13.4 Hematocrit 39.5 Mean Corpuscular Volume 99.0 Mean Corpuscular Hemoglobin 33.5 Mean Corpuscular Hemoglobin Concent 33.8 Red Cell Distribution Width 13.6 Platelet Count 193 Mean Platelet Volume 10.5 Neutrophils (%) (Auto) 93.7 Lymphocytes (%) (Auto) 3.2 Monocytes (%) (Auto) 3.0 Eosinophils (%) (Auto) 0.0 Basophils (%) (Auto) 0.1 Neutrophils # (Auto) 8.3 Lymphocytes # (Auto) 0.3 Monocytes # (Auto) 0.3 Eosinophils # (Auto) 0.0 Basophils # (Auto) 0.0 CBC Comment DIFF FINAL Differential Comment Blood Urea Nitrogen 88 Creatinine 3.22 Random Glucose 155 Calcium Level 7.8 Phosphorus Level 6.3 Magnesium Level 2.5 Sodium Level 138 Potassium Level 3.9 Chloride Level 102 Carbon Dioxide Level 24.3 Anion Gap 12 Estimat Glomerular Filtration Rate 14 Date/Time Source Procedure Growth Status 07/02/17 00:15 Blood Peripheral Aerobic Blood Culture - Preliminary NO GROWTH IN 2 DAYS Resulted 07/02/17 00:15 Blood Peripheral Anaerobic Blood Culture - Preliminary NO GROWTH IN 2 DAYS Resulted 07/03/17 12:30 Sputum Endotracheal Gram Stain - Final Resulted 07/03/17 12:30 Sputum Culture - Preliminary S. Aureus Mrsa Resulted 07/02/17 05:15 Urine Clean Catch Urine Culture - Final Complete Nakul Romo MD Jul 05, 2017 08:54
--- NOTE | 2017-07-05 09:04 | HHI.CCPN ---
Subjective Remarks/Hospital Course This is an 86-year-old female with a history of breast cancer status post right mastectomy, PE in 2010, who presented overnight with shortness of breath was found to have an elevated troponin at 1.89, BNP of 3291, creatinine 1.9, sodium 136, WBCs 12,000. She was admitted for workup of her shortness of breath, possible heart failure. To my knowledge and brief review of medical records she does not have a history of heart failure. This morning she had sudden acute change in mental status. Stroke alert was called. At the same time, should increasing oxygen requirement. When I evaluated the patient, she was obtunded with agonal respirations. I emergently intubated patient. We went down for stat CT head which was negative for acute bleed. We then proceeded for MRI/MRA of the brain. I did perform + critical care ultrasound which demonstrated severe left ventricular systolic dysfunction, preserved RV function , no pericardial effusion, dilated IVC without respiratory variation. The patient does have a history of prior PE, is currently on a heparin drip for possible NSTEMI, given her preserved RV function, is unlikely that massive PE has caused her acute decline. Given her elevated creatinine, we will avoid pulmonary angiogram at this time. Due to the patient's critical condition, no additional information is available from her. Due to the emergent nature of the consult, a complete review of the medical record was unavailable to me. 07/03 Patient is intubated and sedated with Fentanyl and Versed drips. On Heparin drip. Afebrile. 07/04 Patient remains intubated, sedated with Versed and Fentanyl drips. Afebrile.On Heparin drip. 07/05 Patient remains intubated and sedated. On Fentanyl, Precedex and Heparin drips. Objective Vital Signs Date Time Temp Pulse Resp B/P (MAP) Pulse Ox O2 Delivery O2 Flow Rate FiO2 07/05/17 07:53 94 30 07/05/17 06:00 69 07/05/17 04:00 97.5 12 98/54 (69) 07/02/17 04:00 Nasal Cannula 3.00 Intake and Output 07/05/17 07/05/17 07/05/17 07:59 15:59 23:59 Intake Total 599 ml Output Total 250 ml Balance 349 ml Result Diagram: 07/05/17 0440 07/05/17 0440 Other Results Laboratory Tests Test 07/04/17 14:29 07/05/17 04:40 Activated Partial Thromboplast Time 46.9 SEC 53.3 SEC White Blood Count 8.9 TH/MM3 Red Blood Count 3.99 MIL/MM3 Hemoglobin 13.4 GM/DL Hematocrit 39.5 % Mean Corpuscular Volume 99.0 FL Mean Corpuscular Hemoglobin 33.5 PG Mean Corpuscular Hemoglobin Concent 33.8 % Red Cell Distribution Width 13.6 % Platelet Count 193 TH/MM3 Mean Platelet Volume 10.5 FL Neutrophils (%) (Auto) 93.7 % Lymphocytes (%) (Auto) 3.2 % Monocytes (%) (Auto) 3.0 % Eosinophils (%) (Auto) 0.0 % Basophils (%) (Auto) 0.1 % Neutrophils # (Auto) 8.3 TH/MM3 Lymphocytes # (Auto) 0.3 TH/MM3 Monocytes # (Auto) 0.3 TH/MM3 Eosinophils # (Auto) 0.0 TH/MM3 Basophils # (Auto) 0.0 TH/MM3 CBC Comment DIFF FINAL Differential Comment Blood Urea Nitrogen 88 MG/DL Creatinine 3.22 MG/DL Random Glucose 155 MG/DL Calcium Level 7.8 MG/DL Phosphorus Level 6.3 MG/DL Magnesium Level 2.5 MG/DL Sodium Level 138 MEQ/L Potassium Level 3.9 MEQ/L Chloride Level 102 MEQ/L Carbon Dioxide Level 24.3 MEQ/L Anion Gap 12 MEQ/L Estimat Glomerular Filtration Rate 14 ML/MIN Imaging Last Impressions Chest X-Ray 07/04/17 0600 Signed Impressions: Service Date/Time: Tuesday, July 04, 2017 03:18 - CONCLUSION: 1. Slight increased right basilar opacity representing either atelectasis, consolidation , and/or effusion. 2. Mild increased atelectasis or consolidation at the left lung base. Dante Montes MD Abdomen/Pelvis CT 07/04/17 0000 Signed Impressions: Service Date/Time: Tuesday, July 04, 2017 16:27 - CONCLUSION: 1. Uncomplicated colonic diverticulosis. 2. 2.8 cm hyperdense exophytic lesion arising from the atrophic left kidney consistent with hyperdense cyst or possible solid lesion. 3. Probable sludge within the gallbladder. 4. Degenerative changes and scoliosis of the thoracolumbar spine. 5. Small bilateral pleural effusions. Abdelrahman Pritchard MD Renal Ultrasound 07/03/17 0000 Signed Impressions: Service Date/Time: Monday, July 03, 2017 09:38 - CONCLUSION: Medical renal disease on the right. Nonvisualization of the left kidney. Whether this reflects agenesis or atrophy is uncertain. Wilfredo Ibrahim MD Head Magnetic Resonance Angiography 07/02/17 0000 Signed Impressions: Service Date/Time: Sunday, July 02, 2017 09:06 - CONCLUSION: 1. No large vessel stenosis or aneurysm. 2. Normal variants as described above. Keith Kurtz MD Head CT 07/02/17 0000 Signed Impressions: Service Date/Time: Sunday, July 02, 2017 08:47 - CONCLUSION: Right basal ganglia lacunar infarct, indeterminate age. Otherwise unremarkable CT brain. Keith Kurtz MD Brain MRI 07/02/17 0000 Signed Impressions: Service Date/Time: Sunday, July 02, 2017 09:06 - CONCLUSION: 1. Old right-sided lacunar infarct versus prominent vascular channel. 2. Nonspecific white matter changes likely chronic ischemic small vessel vasculopathy with similar changes also noted within the brainstem and left thalamus. Keith Kurtz MD Objective Remarks GENERAL: Patient is 86 yo intubated and sedated SKIN: Warm and dry. HEAD: Normocephalic. EYES: No scleral icterus. No injection or drainage. NECK: Supple, trachea midline. No JVD or lymphadenopathy. CARDIOVASCULAR: Regular rate and rhythm without murmurs, gallops, or rubs. RESPIRATORY: Breath sounds equal bilaterally. No accessory muscle use. GASTROINTESTINAL: Abdomen soft, non-tender, nondistended. MUSCULOSKELETAL: No cyanosis, or edema. BACK: Nontender without obvious deformity. No CVA tenderness. Neuro: Sedated A/P Assessment and Plan Plan by systems: Neurologic: Metabolic encephalopathy - CT head 07/02: Negative for acute change, old right basal ganglia stroke - MRI/MRA brain 07/02: No acute findings -EEG 07/02: Mod. encephalopathy - On Fentanyl drip for sedation goal RASS -2. Daily sedation vacation - Precedex drip to facilitate with weaning trials. -Neuro is following- Dr. Burns. Respiratory: Acute hypoxic and hypercarbic respiratory failure - Head of bed elevated -Continue with vents support keep sat >92% -Bronchodilators, ICU vent bundle, SBT daily as mireya. Cardiovascular: NSTEMI CHF- Acute systolic Cardiomyopathy Monitor HR and HAMMAD keep MAP>65mmHg - cardiology is following- Dr. Belter -Echo showed EF 30-35%, Global hypokinesis - on Coreg 3.125mg BID and ASA 81mg daily continue with heparin drip. Renal: Acute kidney injury superimposed on chronic renal insufficiency, unknown stage - Monitor renal function, I/O's, avoid nephrotoxins -Renal function worse today with Cr: 3.22 from 2.75, UOP:525ml in 24 hrs - real US: medical renal disease on right, left kidney not visualized, -CT abd/pelvis: Uncomplicated colonic diverticulosis. 2.8 cm hyperdense exophytic lesion arising from the atrophic left kidney consistent with hyperdense cyst or possible solid lesion. Probable sludge within the gallbladder -Lasix 40mg IV daily- Renal is following- Dr. Crouch GI: Acute protein calorie malnutrition- moderate -tube feeds- Nepro with goal rate 40ml/hr - on Pepcid for GI prophylaxis Heme History of PE in 2010 - On heparin drip - Monitor CBC, coags ID UTI Leukocytosis MRSA pneumonia Continue Levaquin, Zyvox and monitor for sign of infections ( Fever, WBC) 2/5 sputum cx: MRSA 2/4 nasal washing negative for Influenza. Urine cx: Group D enterococcus Endocrine: Hyperglycemia of critical illness -- SSI with accuchecks Prophylaxis: GI Prophylaxis n Pepcid DVT Prophylaxis -- SCDs Heparin drip Lines: Peripheral IVs [place] Palliative care to asses with goals of care Level 3 Evonne Hunt MD Jul 05, 2017 09:04
[2017-07-05] MEDS: LEVOFLOXACIN/DEXTROSE 250 MG/50 ML IV SCH (10:29)
--- NOTE | 2017-07-05 12:50 | HHI.NPPN ---
Subjective Renal Failure: Acute Interval History The patient is on the vent, eyes open and agitated despite sedation. Daughter and son at bedside. Renal function is declining. (Nely Mustafa) Review of Systems General General Remarks unable to obtain (Nely Mustafa) Objective Data Data 07/05/17 07/06/17 18:59 06:59 Intake Total 50 ml Balance 50 ml Intake IV Total 50 ml Vital Signs Date Time Temp Pulse Resp B/P (MAP) Pulse Ox O2 Delivery O2 Flow Rate FiO2 07/05/17 12:00 30 07/05/17 12:00 76 07/05/17 11:26 94 30 07/05/17 10:00 126 07/05/17 09:00 85 12 126/62 (83) 95 07/05/17 08:30 85 16 114/56 (75) 94 07/05/17 08:00 30 07/05/17 08:00 99.6 77 12 101/51 (68) 96 07/05/17 08:00 77 07/05/17 07:53 94 30 07/05/17 07:30 85 11 92/50 (64) 94 07/05/17 07:01 112 14 174/81 (112) 92 07/05/17 07:00 121 27 90 07/05/17 06:00 69 07/05/17 04:46 97 30 07/05/17 04:00 97.5 63 12 98/54 (69) 94 07/05/17 04:00 30 07/05/17 04:00 63 07/05/17 02:00 58 07/05/17 01:14 97 30 07/05/17 00:00 30 07/05/17 00:00 94.8 61 12 104/55 (71) 96 07/05/17 00:00 61 07/04/17 22:18 100 30 07/04/17 22:00 93 07/04/17 20:00 69 07/04/17 20:00 97.6 69 13 140/65 (90) 96 07/04/17 20:00 30 07/04/17 19:40 94 30 07/04/17 18:00 83 07/04/17 17:30 88 14 110/56 (74) 93 07/04/17 17:00 90 07/04/17 17:00 90 13 142/70 (94) 95 07/04/17 16:15 100 100 07/04/17 16:00 97.7 93 12 164/80 (108) 95 07/04/17 16:00 40 07/04/17 16:00 93 07/04/17 15:00 71 12 106/59 (75) 97 07/04/17 15:00 71 07/04/17 14:52 95 30 07/04/17 14:45 72 12 94/51 (65) 94 07/04/17 14:30 71 12 94/51 (65) 93 07/04/17 14:15 71 12 80/48 (59) 93 07/04/17 14:00 74 07/04/17 14:00 74 17 82/43 (56) 93 07/04/17 13:00 75 40 103/59 (74) 91 07/04/17 13:00 75 (Nely Mustafa) -: 07/05/17 0440 07/05/17 0440 Imaging Last 72 hours Impressions Chest X-Ray 07/04/17 0600 Signed Impressions: Service Date/Time: Tuesday, July 04, 2017 03:18 - CONCLUSION: 1. Slight increased right basilar opacity representing either atelectasis, consolidation , and/or effusion. 2. Mild increased atelectasis or consolidation at the left lung base. Dante Montes MD Abdomen/Pelvis CT 07/04/17 0000 Signed Impressions: Service Date/Time: Tuesday, July 04, 2017 16:27 - CONCLUSION: 1. Uncomplicated colonic diverticulosis. 2. 2.8 cm hyperdense exophytic lesion arising from the atrophic left kidney consistent with hyperdense cyst or possible solid lesion. 3. Probable sludge within the gallbladder. 4. Degenerative changes and scoliosis of the thoracolumbar spine. 5. Small bilateral pleural effusions. Abdelrahman Pritchard MD Renal Ultrasound 07/03/17 0000 Signed Impressions: Service Date/Time: Monday, July 03, 2017 09:38 - CONCLUSION: Medical renal disease on the right. Nonvisualization of the left kidney. Whether this reflects agenesis or atrophy is uncertain. Wilfredo Ibrahim MD (Nely Mustafa) Physical Exam General Appearance: No Acute Distress Appearance Remarks eyes open and agitated on vent, ETT in place (Nely Mustafa) Eyes Eye Exam: Pupils Equal (Nely Mustafa) Throat Throat Exam: Oral Mucosa [place] & Moist (Nely Mustafa [employer]EL[employer]) Pulmonary Resp Exam: No Distress, Rhonchi Resp Remarks expiratory rhonchi (Nely Mustafa) Cardiology CV Exam: Regular, Normal Sinus Rhythm (Nely Mustafa) Gastrointestinal/Abdomen GI Exam: Non-Tender, Bowel Sounds Present (Nely Mustafa [employer]EL[employer]) Musculoskeletal MS Exam: Joints Intact, Normal Tone, Unable to Ambulate (Nely Mustafa) Integumentary Skin Exam: Warm, Dry, Intact (Nely Mustafa) Extremeties Extremities Exam: No Edema, Pedal Pulses Palpable (Nely Mustafa) Neurologic Neuro Exam: Unresponsive, Sedated (Nely Mustafa) Assessment/Plan Discussed Condition With: Son, Daughter Assessment Summary: LEE/Acute Renal Failure, Acute Tubular Necrosis, CKD Stage III, CKD Stage IV Problem List: (1) Acute renal failure ICD Codes: N17.9 - Acute kidney failure, unspecified Plan: She most likely has underlying CKD, in 2010 her creatinine was 1.6-1.7, GFR 28-30, Stage 3-4 LEE may be due to CHF exacerbation and increased renal vein pressure, also NSTEMI Renal function declining Marginal urine output CT showed left renal atrophy with cystic structure She is on Lasix once daily currently (IV) She may need dialysis in upcoming days. However the patient was a DNR prior to this and expressed not wanting aggressive treatment. We discussed in length with the daughter, awaiting a decision Repeat labs tomorrow, we will dialyze if the family wishes Maintain MAP > 65mmHg (2) CHF (congestive heart failure) ICD Codes: I50.9 - Heart failure, unspecified Status: Acute Plan: Echo shows EF 30-35% Follow fluid status, I/O Diuresis as above, titrate as needed Achieve negative fluid balance Avoid IVF On 30% FiO2 currently, CPAP and vent weening as tolerated and per protocol (3) Non-ST elevation LA (NSTEMI) ICD Codes: I21.4 - Non-ST elevation (NSTEMI) myocardial infarction Status: Acute Plan: Cardiology following, troponin trending down On Heparin gtt, appreciate further recommendations (4) Hypertension ICD Codes: I10 - Essential (primary) hypertension Plan: Monitor blood pressure Borderline hypotensive On coreg Plan Prognosis is guarded. (Nely Mustafa) Problem List: (1) Acute renal failure ICD Codes: N17.9 - Acute kidney failure, unspecified Plan: She most likely has underlying CKD, in 2010 her creatinine was 1.6-1.7, GFR 28-30, Stage 3-4 LEE may be due to CHF exacerbation and increased renal vein pressure, also NSTEMI Renal function declining Marginal urine output CT showed left renal atrophy with cystic structure She is on Lasix once daily currently (IV) She may need dialysis in upcoming days. However the patient was a DNR prior to this and expressed not wanting aggressive treatment. We discussed in length with the daughter, awaiting a decision Repeat labs tomorrow, we will dialyze if the family wishes Maintain MAP > 65mmHg (2) CHF (congestive heart failure) ICD Codes: I50.9 - Heart failure, unspecified Status: Acute Plan: Echo shows EF 30-35% Follow fluid status, I/O Diuresis as above, titrate as needed Achieve negative fluid balance Avoid IVF On 30% FiO2 currently, CPAP and vent weening as tolerated and per protocol (3) Non-ST elevation LA (NSTEMI) ICD Codes: I21.4 - Non-ST elevation (NSTEMI) myocardial infarction Status: Acute Plan: Cardiology following, troponin trending down On Heparin gtt, appreciate further recommendations (4) Hypertension ICD Codes: I10 - Essential (primary) hypertension Plan: Monitor blood pressure Borderline hypotensive On coreg Plan patient was seen and examined. Agree with above assessment and plan. Poor prognosis, apparently the patient did not want to be resuscitated or put on ventilator. Suggested withdrawal of care and hospice. If family requests aggressive continued care, she will need dialysis. Dialysis likely will not alter the outcome. (Danie Crouch MD) Nely Mustafa Jul 05, 2017 12:50 Danie Crouch MD Jul 05, 2017 18:02
--- NOTE | 2017-07-05 13:33 | PD.CONS ---
Consult Service Palliative Care . Consult Requested By Dr. Moy . Primary Care Physician Tayo Messer M.D. . Reason for Consultation a. To assist with evaluation and management of symptoms including: agitation , dyspnea b. To assist medical decision maker(s) with: better understanding of current medical conditions; weighing benefits/burdens of medical treatment options; making medical treatment decisions. . HPI History of Present Illness Ms. Alvarez is an 86-year-old female who presented to [facility] ED on 2017 for evaluation of hypoxia after her oxygen saturations were noted to be low while she was being seen at a local urgent care. On exam, the patient was noted to be short of breath with an oxygen saturation in the low 80s on room air. Patient reported a cough and congestion 1 day. She experienced shortness of breath earlier in the day with associated weakness/dizziness; she also had a "choking sensation" that awakened her from sleep. She denied any associated chest pain. + Nonproductive cough. + Bilateral lower extremity edema which is reportedly chronic. Of note, patient's medical history is significant for COPD , hypertension, PE in 2010 (on Coumadin 5 years), history of breast cancer and endometrial cancer, hypothyroidism, osteoarthritis and gout. Additional diagnostic data: * Vital signs: Pulse 104, respirations 35, oxygen saturation 81% on room air * WBC: 12.1, hemoglobin 13.5, hematocrit 39.8, platelets 184, neutrophils 95.0% * Sodium: 135, potassium 5.1, chloride 100, carbon dioxide 22.7, glucose 2:30, calcium 8.5, magnesium 2.2 * BUN: 30, creatinine 1.90, GFR 25 * Total bilirubin: 0.7, AST 31, ALT 21, alkaline phosphatase 71 * Total creatine kinase: 112 * CK-MB: 6.3 * Troponin: 1.89 * BNP: 3291 * Total protein: 7.0, albumin 3.7 * PT: 15.0, INR 1.5, APTT 32.4 * Urinalysis with trace occult blood, leukocyte esterase and urine WBC of 38 * Blood culture negative * Chest x-ray at the urgent care showed cardiomegaly; there were no effusion; there was aortic calcification and patchy bilateral basilar airspace disease noted. * EKG: Sinus tachycardia rate 110 rare PVC nonspecific T-wave changes no acute ST elevation artifact is present at baseline. Patient was placed on a media monitor with supplemental oxygen. Patient was placed on BiPAP but symptomatically improved after receiving DuoNeb 3 as well as Solu-Medrol. Patient was informed that her cardiac enzymes and BNP were elevated consistent with an STEMI and CHF as well as COPD exacerbation, requiring admission. Patient has not seen her telegraph editor for at least 5 years and never had a stress test or cardiac catheterization. The following morning 07/02/2017, the patient had sudden acute changes in mental status and a stroke alert was called. The patient was obtunded with agonal respirations requiring emergent intubation. 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 MRI/MRA brain with no acute findings. Bedside echo showed a significantly decreased LV systolic function, preserved RV function, no pericardial effusion, dilated IVC without respiratory variation. Cardiology (Dr. Rivera) was consulted for recommendations. Patient's troponin levels Her troponin levels trending downward, implying she may have had a recent MN, now with subsequent ischemic cardiomyopathy. Recommendations for cardiac catheterization when stable to determine etiology, but creatinine is trending upward. Patient is being diuresed and managed by the critical care team. Echocardiogram showed EF 30-35%; global hypokinesis. Pulmonology and neurology following. EEG on 07/02/2017 showing moderate encephalopathy Nephrology was consulted for assist in management of acute on chronic kidney insufficiency. Patient's creatinine was elevated at 1.9 on admission (07/01/17), increasing to 2.4 the following day (07/02/17). Most recent know labs for comparison are from 2010 when his creatinine was 1.6-1.7. LEE may be secondary to CHF exacerbation versus hypoperfusion injury. She is being diuresed on Lasix 40 mg BID. Renal ultrasound revealed right kidney but unable to visualize the left kidney. CT abdomen/pelvis revealed uncomplicated colonic diverticulosis; 2.8 cm hyperdense exophytic lesion rising from the atrophic left kidney consistent with hyperdense cysts or possible solid lesion. Follow-up chest x-ray on 07/04/2017 showing slight increase in right basilar opacity representing either atelectasis, consolidation and/or effusion. Mild increased atelectasis versus consolidation at the left lung base. Renal functioning continues to deteriorate. BUN: 88, creatinine 3.22, GFR 14 Palliative Care was consulted to assist with symptom management and to discuss with the family the benefits and burdens of her current illnesses and the options regarding future care. . Function/Cognitive Trajectory Patient's daughter states her mother was in relatively good health and independent prior to being hospitalized on 07/01/2017. She was employed at [employer] until she was in her late 70s, approximately 5 years ago. She did use a walker to assist with ambulation because she had a history of falls but was otherwise independent with all ADLs. . Review of Systems ROS Limitations: Intubated, Altered Mental Status Constitutional: COMPLAINS OF: Generalized weakness Respiratory: COMPLAINS OF: Cough, Shortness of breath Cardiovascular: COMPLAINS OF: Dyspnea on Exertion Hematologic/Lymphatics: COMPLAINS OF: Bruising Psychiatric: COMPLAINS OF: Confusion (ROS obtained from review of notes and family report.) Past Family Social History Coded Allergies: allopurinol (Unverified Allergy, Severe, RASH; SKIN PEELING, 01/10/17) coconut (Unverified Allergy, Severe, RESP DISTRESS, 01/10/17) levothyroxine (Unverified Allergy, Severe, ALLERGIC TO "GENERIC' SYNTHROID , 01/10/17) levothyroxine sodium (Unverified Allergy, Severe, ALLERGIC TO "GENERIC' SYNTHROID, 01/10/17) penicillin G (Unverified Allergy, Severe, RASH, 01/10/17) tetanus toxoid, adsorbed (Unverified Allergy, Severe, 01/10/17) Uncoded Allergies: DILL (Allergy, Severe, 05/18/11) Past Medical History COPD Hypertension PE in 2010, anticoagulated on Coumadin History of breast cancer History of endometrial cancer Hypothyroidism Osteoarthritis Gout . Past Surgical History Bilateral cataract surgery Hysterectomy Right mastectomy 2 Pilonidal cyst excision . Reported Medications Biotin 5 Mg Cap 5 Mg PO DAILY Clonidine 168 HR Patch (Clonidine HCl) 0.2 Mg/24 Hr Patch 1 Patch T-DERMAL Q7D Labetalol (Labetalol HCl) 100 Mg Tab 100 Mg PO DAILY Warfarin 2 Mg Tab 2 Mg PO DAILY Synthroid (Levothyroxine Sodium) 50 Mcg Tab 50 Mcg PO DAILY Spiriva Respimat Inh (Tiotropium Inh) 1.25 Mcg/Act Aero 2 Puff INH DAILY 1.25 mcg = 1 inhalation Diovan (Valsartan) 320 Mg Tab 320 Mg PO DAILY . Current Medications Medications (Trade) Dose Ordered Sig/Johanna Route Start Time Stop Time Status Last Admin Heparin Sodium/ Dextrose 250 ml @ 7 mls/hr TITRATE PRN IV 07/02/17 02:00 07/03/17 14:34 (NS Flush) 2 ml UNSCH PRN IV FLUSH 07/02/17 02:00 (NS Flush) 2 ml BID IV FLUSH 07/02/17 09:00 07/05/17 08:30 (Tylenol) 650 mg Q4H PRN PO 07/02/17 02:00 (Zofran Inj) 4 mg Q6H PRN IVP 07/02/17 02:00 (Narcan Inj) 0.4 mg UNSCH PRN IV PUSH 07/02/17 02:00 (Senokot) 17.2 mg Q12H PRN PO 07/02/17 02:00 (Dulcolax Supp) 10 mg DAILY PRN RECTAL 07/02/17 02:00 (Lactulose Liq) 30 ml DAILY PRN PO 07/02/17 02:00 (Synthroid) 50 mcg DAILY@0700 PO 07/02/17 07:00 07/05/17 05:22 (Catapres) 0.1 mg Q6H PRN PO 07/02/17 06:45 07/04/17 04:30 (Trandate) 100 mg DAILY PO 07/02/17 07:15 Future Hold 07/02/17 07:12 (SoluMEDROL INJ) 40 mg Q8HR IV PUSH 07/02/17 07:15 07/05/17 05:22 (K-Lyte Cl Eff) 50 meq UNSCH PRN PO 07/02/17 10:00 (Peridex 0.12% Liq) 15 ml BID@08,20 MT 07/02/17 20:00 07/05/17 08:30 (Duoneb Neb) 1 ampule Q6HR NEB INH 07/02/17 10:00 07/05/17 07:52 (Duoneb Neb) 1 ampule Q2HR NEB PRN INH 07/02/17 10:00 Fentanyl Citrate 250 ml @ 5 mls/hr TITRATE PRN IV 07/02/17 10:30 07/04/17 11:57 (Brethine Inj) 1 mg UNSCH PRN SQ 07/02/17 13:30 (Coreg) 3.125 mg Q12HR PO 07/03/17 11:00 07/05/17 08:30 (D50w (Vial) Inj) 50 ml UNSCH PRN IV PUSH 07/03/17 09:30 (Glucagon Inj) 1 mg UNSCH PRN OTHER 07/03/17 09:30 (NovoLIN R SUPPLEMENTAL SCALE) 1 Q4H SQ 07/03/17 10:00 07/05/17 05:22 (Aspirin Chew) 81 mg DAILY OG-TUBE 07/03/17 11:00 07/05/17 08:31 (Pepcid Inj) 10 mg Q12HR IV PUSH 07/03/17 21:00 07/05/17 08:31 (Lasix Inj) 40 mg DAILY IV PUSH 07/04/17 09:00 07/05/17 08:31 Levofloxacin/ Dextrose 50 ml @ 50 mls/hr Q24H IV 07/04/17 10:00 07/05/17 10:29 Dexmedetomidine HCl 200 mcg/ Sodium Chloride 52 ml @ 3.25 mls/hr TITRATE PRN IV 07/04/17 09:00 07/05/17 12:44 (Phoslo) 667 mg TID PO 07/04/17 13:00 07/05/17 08:30 (Zyvox) 600 mg Q12HR PO 07/04/17 14:45 07/05/17 08:30 Family History Father with CAD. Patient's mother from complications related to sepsis. Father from complications after being hit by a car. Patient had 2 brothers ; one from cancer (unknown type) and one in [place]. She has a sister who is alive and well. . Substance Use Tobacco: 30 pack year smoking history. Patient quit approximately 20 years ago Alcohol: Social consumption Prescription med abuse: None known Illicits: None known . Psychosocial History Patient was born in [place]. She went to college in [place] and progressively worked her way south. She was to her first for an unknown length of time. Together they had 2 children (Dotty and Zeyad). Dotty states her parents got when she was about 5 years old. Patient' s daughter states her mom had a very brief second marriage. 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 Spiritual/Cultural Factors Druze olive . Documented care wishes: It is unclear at this time if the patient has completed written advanced directives. The patient's daughter thinks she may have in 1994, she is not certain. She will attempt to locate them. . Today's verbally stated goals: Patient is unable to verbalize medical treatment goals given her current clinical condition. . Family/friends goals: Pending further conversations with family who state they will likely proceed with hemodialysis if indicated. . Ethical and Legal Issues No known ethical issues impacting care. . Physical Exam Vital Signs Date Time Temp Pulse Resp B/P (MAP) Pulse Ox O2 Delivery O2 Flow Rate FiO2 07/05/17 12:00 30 07/05/17 12:00 76 07/05/17 11:26 94 30 07/05/17 10:00 126 07/05/17 09:00 85 12 126/62 (83) 95 07/05/17 08:30 85 16 114/56 (75) 94 07/05/17 08:00 30 07/05/17 08:00 99.6 77 12 101/51 (68) 96 07/05/17 08:00 77 07/05/17 07:53 94 30 07/05/17 07:30 85 11 92/50 (64) 94 07/05/17 07:01 112 14 174/81 (112) 92 07/05/17 07:00 121 27 90 07/05/17 06:00 69 07/05/17 04:46 97 30 07/05/17 04:00 97.5 63 12 98/54 (69) 94 07/05/17 04:00 30 07/05/17 04:00 63 07/05/17 02:00 58 07/05/17 01:14 97 30 07/05/17 00:00 30 07/05/17 00:00 94.8 61 12 104/55 (71) 96 07/05/17 00:00 61 07/04/17 22:18 100 30 07/04/17 22:00 93 07/04/17 20:00 69 07/04/17 20:00 97.6 69 13 140/65 (90) 96 07/04/17 20:00 30 07/04/17 19:40 94 30 07/04/17 18:00 83 07/04/17 17:30 88 14 110/56 (74) 93 2 17:00 90 2 17:00 90 13 142/70 (94) 95 07/04/17 16:15 100 100 2 16:00 97.7 93 12 164/80 (108) 95 07/04/17 16:00 40 2 16:00 93 07/04/17 15:00 71 12 106/59 (75) 97 07/04/17 15:00 71 07/04/17 14:52 95 30 07/04/17 14:45 72 12 94/51 (65) 94 07/04/17 14:30 71 12 94/51 (65) 93 2 14:15 71 12 80/48 (59) 93 07/04/17 14:00 74 2 14:00 74 17 82/43 (56) 93 07/04/17 13:00 75 40 103/59 (74) 91 07/04/17 13:00 75 . 07/05/17 07/06/17 19:00 07:00 Intake Total 50 ml Balance 50 ml Intake IV Total 50 ml . Exam CONSTITUTIONAL/GENERAL: This is an elderly, female patient currently intubated on mechanical ventilation TUBES/LINES/DRAINS: PIV x3, Collier SKIN: Ecchymoses on upper extremities. No wounds seen anteriorly. Skin temperature appropriate. Not diaphoretic. HEAD: Atraumatic. Normocephalic. EYES: Pupils equal and round and reactive. Extraocular motions intact. No scleral icterus. No injection or drainage. Fundi not examined. ENT: Nose without bleeding or purulent drainage. Dried blood noted on lips and oral mucosa NECK: Trachea midline. Supple, nontender. No palpable thyroid enlargement or nodularity. CARDIOVASCULAR: Regular rate and rhythm without murmurs, gallops, or rubs. No JVD. Peripheral pulses symmetric. RESPIRATORY/CHEST: Intubated on mechanical ventilation. Breath sounds diminished bilaterally. GASTROINTESTINAL: Abdomen soft, non-tender, nondistended. No hepato-splenomegaly , or palpable masses. No guarding. Bowel sounds present. GENITOURINARY: Without palpable bladder distension. Collier catheter in place. MUSCULOSKELETAL: Extremities without clubbing, cyanosis, or edema. No mottling or clubbing. LYMPHATICS: No palpable cervical or supraclavicular adenopathy. NEUROLOGICAL: Agitated on Fentanyl and Precedex drips. Does not respond to questions; not follow commands PSYCHIATRIC: Unable to assess given patient's clinical condition. . Diagnostic Tests Laboratory Laboratory Tests Test 07/02/17 19:38 07/03/17 02:29 07/03/17 05:33 07/03/17 12:12 Activated Partial Thromboplast Time 61.6 SEC (24.3-30.1) 44.7 SEC (24.3-30.1) White Blood Count 13.0 TH/MM3 (4.0-11.0) Red Blood Count 3.89 MIL/MM3 (4.00-5.30) Hemoglobin 12.9 GM/DL (11.6-15.3) Hematocrit 38.4 % (35.0-46.0) Mean Corpuscular Volume 98.7 FL (80.0-100.0) Mean Corpuscular Hemoglobin 33.1 PG (27.0-34.0) Mean Corpuscular Hemoglobin Concent 33.6 % (32.0-36.0) Red Cell Distribution Width 13.7 % (11.6-17.2) Platelet Count 187 TH/MM3 (150-450) Mean Platelet Volume 10.5 FL (7.0-11.0) Neutrophils (%) (Auto) 92.9 % (16.0-70.0) Lymphocytes (%) (Auto) 2.9 % (9.0-44.0) Monocytes (%) (Auto) 4.2 % (0.0-8.0) Eosinophils (%) (Auto) 0.0 % (0.0-4.0) Basophils (%) (Auto) 0.0 % (0.0-2.0) Neutrophils # (Auto) 12.0 TH/MM3 (1.8-7.7) Lymphocytes # (Auto) 0.4 TH/MM3 (1.0-4.8) Monocytes # (Auto) 0.6 TH/MM3 (0-0.9) Eosinophils # (Auto) 0.0 TH/MM3 (0-0.4) Basophils # (Auto) 0.0 TH/MM3 (0-0.2) CBC Comment DIFF FINAL Differential Comment Blood Urea Nitrogen 54 MG/DL (7-18) Creatinine 2.44 MG/DL (0.50-1.00) Random Glucose 139 MG/DL (74-106) Calcium Level 7.9 MG/DL (8.5-10.1) Sodium Level 138 MEQ/L (136-145) Potassium Level 4.2 MEQ/L (3.5-5.1) Chloride Level 102 MEQ/L (98-107) Carbon Dioxide Level 23.7 MEQ/L (21.0-32.0) Anion Gap 12 MEQ/L (5-15) Estimat Glomerular Filtration Rate 19 ML/MIN (>89) B-Type Natriuretic Peptide 1253 PG/ML (0-100) Blood Gas Puncture Site LT RADIAL Blood Gas Patient Temperature 98.6 Blood Gas HCO3 23 mmol/L (22-26) Blood Gas Base Excess -2.1 mmol/L (-2-2) Blood Gas Oxygen Saturation 96 % (90-100) Arterial Blood pH 7.34 (7.380-7.420) Arterial Blood Partial Pressure CO2 44 mmHg (38-42) Arterial Blood Partial Pressure O2 115 mmHg (61-120) Arterial Blood Oxygen Content 17.2 Vol % (12.0-20.0) Arterial Blood Carboxyhemoglobin 0.7 % (0-4) Arterial Blood Methemoglobin 1.2 % (0-2) Blood Gas Hemoglobin 12.6 G/DL (12.0-16.0) Oxygen Delivery Device VENTILATOR Blood Gas Ventilator Setting [facility]/AC Blood Gas Inspired Oxygen 40 % Test 07/04/17 04:02 07/04/17 08:30 07/04/17 14:29 07/05/17 04:40 White Blood Count 9.0 TH/MM3 (4.0-11.0) 8.9 TH/MM3 (4.0-11.0) Red Blood Count 4.00 MIL/MM3 (4.00-5.30) 3.99 MIL/MM3 (4.00-5.30) Hemoglobin 13.3 GM/DL (11.6-15.3) 13.4 GM/DL (11.6-15.3) Hematocrit 39.4 % (35.0-46.0) 39.5 % (35.0-46.0) Mean Corpuscular Volume 98.6 FL (80.0-100.0) 99.0 FL (80.0-100.0) Mean Corpuscular Hemoglobin 33.2 PG (27.0-34.0) 33.5 PG (27.0-34.0) Mean Corpuscular Hemoglobin Concent 33.6 % (32.0-36.0) 33.8 % (32.0-36.0) Red Cell Distribution Width 13.9 % (11.6-17.2) 13.6 % (11.6-17.2) Platelet Count 169 TH/MM3 (150-450) 193 TH/MM3 (150-450) Mean Platelet Volume 10.1 FL (7.0-11.0) 10.5 FL (7.0-11.0) Neutrophils (%) (Auto) 93.0 % (16.0-70.0) 93.7 % (16.0-70.0) Lymphocytes (%) (Auto) 3.8 % (9.0-44.0) 3.2 % (9.0-44.0) Monocytes (%) (Auto) 3.2 % (0.0-8.0) 3.0 % (0.0-8.0) Eosinophils (%) (Auto) 0.0 % (0.0-4.0) 0.0 % (0.0-4.0) Basophils (%) (Auto) 0.0 % (0.0-2.0) 0.1 % (0.0-2.0) Neutrophils # (Auto) 8.3 TH/MM3 (1.8-7.7) 8.3 TH/MM3 (1.8-7.7) Lymphocytes # (Auto) 0.3 TH/MM3 (1.0-4.8) 0.3 TH/MM3 (1.0-4.8) Monocytes # (Auto) 0.3 TH/MM3 (0-0.9) 0.3 TH/MM3 (0-0.9) Eosinophils # (Auto) 0.0 TH/MM3 (0-0.4) 0.0 TH/MM3 (0-0.4) Basophils # (Auto) 0.0 TH/MM3 (0-0.2) 0.0 TH/MM3 (0-0.2) CBC Comment DIFF FINAL DIFF FINAL Differential Comment Activated Partial Thromboplast Time 97.9 SEC (24.3-30.1) 49.8 SEC (24.3-30.1) 46.9 SEC (24.3-30.1) 53.3 SEC (24.3-30.1) Blood Urea Nitrogen 68 MG/DL (7-18) 88 MG/DL (7-18) Creatinine 2.75 MG/DL (0.50-1.00) 3.22 MG/DL (0.50-1.00) Random Glucose 136 MG/DL (74-106) 155 MG/DL (74-106) Total Protein 6.0 GM/DL (6.4-8.2) Albumin 2.9 GM/DL (3.4-5.0) Calcium Level 7.5 MG/DL (8.5-10.1) 7.8 MG/DL (8.5-10.1) Phosphorus Level 6.3 MG/DL (2.5-4.9) 6.3 MG/DL (2.5-4.9) Alkaline Phosphatase 50 U/L (45-117) Aspartate Amino Transf (AST/SGOT) 22 U/L (15-37) Alanine Aminotransferase (ALT/SGPT) 21 U/L (10-53) Total Bilirubin 0.2 MG/DL (0.2-1.0) Sodium Level 138 MEQ/L (136-145) 138 MEQ/L (136-145) Potassium Level 3.9 MEQ/L (3.5-5.1) 3.9 MEQ/L (3.5-5.1) Chloride Level 102 MEQ/L (98-107) 102 MEQ/L (98-107) Carbon Dioxide Level 24.6 MEQ/L (21.0-32.0) 24.3 MEQ/L (21.0-32.0) Anion Gap 11 MEQ/L (5-15) 12 MEQ/L (5-15) Estimat Glomerular Filtration Rate 16 ML/MIN (>89) 14 ML/MIN (>89) Magnesium Level 2.5 MG/DL (1.5-2.5) . Result Diagram: 07/05/1743907/05/17 0440 Microbiology Microbiology Date/Time Source Procedure Growth Status 07/03/17 12:30 Sputum Endotracheal Gram Stain - Final Complete 07/03/17 12:30 Sputum Culture - Final S. Aureus Mrsa Complete Imaging . Last 72 hours Impressions Chest X-Ray 07/04/17 0600 Signed Impressions: Service Date/Time: Tuesday, July 04, 2017 03:18 - CONCLUSION: 1. Slight increased right basilar opacity representing either atelectasis, consolidation , and/or effusion. 2. Mild increased atelectasis or consolidation at the left lung base. Dante Montes MD Abdomen/Pelvis CT 07/04/17 0000 Signed Impressions: Service Date/Time: Tuesday, July 04, 2017 16:27 - CONCLUSION: 1. Uncomplicated colonic diverticulosis. 2. 2.8 cm hyperdense exophytic lesion arising from the atrophic left kidney consistent with hyperdense cyst or possible solid lesion. 3. Probable sludge within the gallbladder. 4. Degenerative changes and scoliosis of the thoracolumbar spine. 5. Small bilateral pleural effusions. Abdelrahman Pritchard MD Renal Ultrasound 07/03/17 0000 Signed Impressions: Service Date/Time: Monday, July 03, 2017 09:38 - CONCLUSION: Medical renal disease on the right. Nonvisualization of the left kidney. Whether this reflects agenesis or atrophy is uncertain. Wilfredo Ibrahim MD . Procedures 07/02/17: Intubation 07/02/17: NGT placed . Patient/Family Conference Present at Family Conference: With patient's daughter (Dotty) at bedside and privately and family conference room. . Family Conference Location: Bedside, Consult Room Issues Discussed: * Palliative care role, purpose, approach * Additional medical, psychosocial, and spiritual history * Patients general health, functional status, and cognitive changes in the months leading up to the current hospitalization * Patient/family understanding of the current medical problems * Patient/family understanding of prognosis * Patients goals of care as best understood from advance directives and/or conversations and/or values * Current medical treatment options and benefits/burdens of those options * Likely scenarios comparing ongoing aggressive care with a transition to comfort measures only * Questions answered to the best of my ability * Palliative care contact information provided . Assessment and Plan Disease Oriented Problem List: (1) Non-ST elevation [place] (NSTEMI) (2) CHF (congestive heart failure) (3) Acute exacerbation of COPD with asthma (4) Encephalopathy, metabolic (5) Cardiomyopathy (6) Acute renal failure (7) Hypertension Symptom Scale: (1) Agitation (2) Shortness of breath Pertinent Non-Medical Issues Psychosocial: Patient was born in [place]. She went to college in [place] and progressively worked her way south. She was to her first for an unknown length of time. Together they had 2 children (Dotty and Zeyad) . Dotty states her parents got when she was about 5 years old. Patient's daughter states her mom had a very brief second marriage. 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 Spiritual: Druze olive Legal: Per [place] statutes, in the absence of written advanced directives healthcare proxy decision-making falls to the patient's 2 children Ethical issues impacting care: No known ethical issues impacting care at this time. . Important Contacts Sonali Dunbar, daughter: [phone] Zeyad and Yumi Brian, family/other: [phone] or [phone] . Prognosis Patient's is an 86-year-old female admitted with an NSTEMI, CHF and COPD exacerbation. She remains intubated on mechanical ventilation; she is not tolerating CPAP trials. She remains extremely agitated on Fentanyl and Precedex drips. Now with worsening renal functioning; will likely need to make a decision on whether or not to proceed with hemodialysis in upcoming days. Given patient's advanced age and multi-organ dysfunction, she is high for ongoing decline and consultations. . Code Status: Full Code Plan * FULL CODE * Decision-making: Patient does not have insight or judgment related to her current medical conditions; it is unclear if she will regain capacity in the future. Per [place] statutes, in the absence of written advanced directives healthcare proxy decision-making falls to the patient's 2 children * GOAL AGGRESSIVE * Discussed patient with bedside nurse (Margy) and nephrology VENEER TAPING MACHINE OPERATOR (Nely) * Care contact information provided to the patient's daughter, Dotty. * Tentative family meeting tomorrow 07/06/17 at 11:30 AM * Symptom management: = Agitation: Patient is agitated on Fentanyl and Precedex. Patient had sudden acute changes in mental status and a stroke alert was called. The patient was obtunded with agonal respirations requiring emergent intubation. 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 MRI/MRA brain with no acute findings. EEG with moderate encephalopathy = Dyspneas: Patient remains intubated on mechanical ventilation, not tolerating spontaneous breathing trails. 07/01/17: Chest x-ray at the urgent care showed cardiomegaly; there were no effusion; there was aortic calcification and patchy bilateral basilar airspace disease noted. * Palliative care continue to follow to establish trust, assist with symptom management and clarification of medical treatment goals. Nexium. Thank you for the opportunity to participate in the care of Ms. Alvarez. Attestation To help prompt me to consider important information that might be impacting today's encounter and assessment, information from prior notes written by myself or my colleagues may have been "brought forward" into today's note. My signature on this note, however, is an attestation that I personally performed the exam, history, and/or decision-making noted today, and, unless otherwise indicated, the interactions with patient, family, and staff as well as the review of records all occurred today. I also attest that the listed assessment and stated plan reflect my best clinical judgment today based on the combination of historical information, prior notes, and today's exam/ interactions. When time spent is documented, it refers only to time spent today by the signer, or if indicated, combined time spent today by collaborating physician/nurse practitioner. . Mayra Barreto Jul 05, 2017 13:33
[2017-07-05] MEDS: fentaNYL DRIP 250 ML IV PRN (13:52)
--- NOTE | 2017-07-05 19:43 | HHI.PR ---
Subjective Remarks Sedated with versed and Fentanyl. On Heparin drip.On antibiotics for MRSA Pneumonia. No fever. FIO2 at 30 % and on Vent rate 16. Failed CPAP trail. CXR shows basal infiltrates Objective Vital Signs Date Time Temp Pulse Resp B/P (MAP) Pulse Ox O2 Delivery O2 Flow Rate FiO2 07/05/17 18:00 65 07/05/17 18:00 65 13 162/71 (101) 95 07/05/17 17:30 66 12 132/63 (86) 96 07/05/17 17:00 66 12 132/60 (84) 96 07/05/17 16:30 66 12 131/63 (85) 98 07/05/17 16:13 98 30 07/05/17 16:00 67 07/05/17 16:00 98.2 67 12 123/57 (79) 95 07/05/17 16:00 30 07/05/17 15:30 70 15 117/58 (77) 95 07/05/17 15:01 83 21 130/65 (86) 84 07/05/17 15:00 70 16 95 07/05/17 14:00 64 12 120/56 (77) 97 07/05/17 14:00 64 07/05/17 13:30 64 13 109/57 (74) 96 07/05/17 13:00 66 12 103/56 (72) 95 07/05/17 12:30 68 12 100/56 (71) 94 07/05/17 12:00 30 07/05/17 12:00 98.7 76 13 106/54 (71) 94 07/05/17 12:00 76 07/05/17 11:45 30 07/05/17 11:31 109 42 124/81 (95) 93 07/05/17 11:26 94 30 07/05/17 11:00 97 11 125/61 (82) 94 07/05/17 10:30 116 28 180/81 (114) 91 07/05/17 10:00 126 07/05/17 10:00 126 39 155/96 (115) 87 07/05/17 09:47 30 07/05/17 09:00 85 12 126/62 (83) 95 07/05/17 08:30 85 16 114/56 (75) 94 07/05/17 08:00 30 07/05/17 08:00 99.6 77 12 101/51 (68) 96 07/05/17 08:00 77 07/05/17 07:53 94 30 07/05/17 07:30 85 11 92/50 (64) 94 07/05/17 07:01 112 14 174/81 (112) 92 07/05/17 07:00 121 27 90 07/05/17 06:00 69 07/05/17 04:46 97 30 07/05/17 04:00 97.5 63 12 98/54 (69) 94 07/05/17 04:00 30 07/05/17 04:00 63 07/05/17 02:00 58 07/05/17 01:14 97 30 07/05/17 00:00 30 07/05/17 00:00 94.8 61 12 104/55 (71) 96 07/05/17 00:00 61 07/04/17 22:18 100 30 07/04/17 22:00 93 07/04/17 20:00 69 07/04/17 20:00 97.6 69 13 140/65 (90) 96 07/04/17 20:00 30 I/O 07/04/17 07/04/17 07/04/17 07/05/17 07/05/17 07/05/17 07:00 15:00 23:00 07:00 15:00 23:00 Intake Total 492 ml 183 ml 368 ml 599 ml 352 ml 704.5 ml Output Total 450 ml 275 ml 250 ml 375 ml Balance 42 ml 183 ml 93 ml 349 ml 352 ml 329.5 ml Intake IV Total 492 ml 183 ml 36 ml 416 ml 352 ml 248.5 ml Tube Feeding 332 ml 153 ml 356 ml Tube Irrigant 100 ml Other 30 ml Output Urine Total 450 ml 275 ml 250 ml 375 ml # Bowel Movements 0 Result Diagram: 07/05/1743907/05/17439 Objective Remarks GENERAL: This averagely built elderly lady is intubated, sedated on ventilator support. HEAD, EYES, EARS, NOSE, THROAT: Head normocephalic. The pupils are reactive and equal. Tongue is moist. Throat is clear. NECK: The neck is supple with venous distention. Trachea is midline. No thyroid enlargement. CHEST: Decreased breath sounds at the bases with occasional crackles HEART: The heart sounds are irregular. S1 and S2. No definite murmur. No S3. ABDOMEN: The abdomen is soft and nontender. No organomegaly. The bowel sounds are active. EXTREMITIES: Decreased pulses.Mild edema NEUROLOGIC: Reflexes are not well-elicited. The patient is sedated. SKIN: No lesions are noted. Assessment and Plan Assessment and Plan ASSESSMENT: 1. Ventilator-dependent respiratory failure. 2. Metabolic encephalopathy. 3. Hypercapnic respiratory failure. 4. Congestive heart failure. 5. NSTEMI. 6. Acute kidney injury with chronic kidney disease. 7. COPD with emphysema. Plan : 1. Wean FIo2 to Keep sat >92. 2. Wean IV Sedation. 3. Taper solumedrol 40 mg IV q12h 4. CBC,BMP in am 5. Nebs qid , duoneb 6. Antibiotics as ordered 7. CPAP trial in am. Bucky Og MD Jul 05, 2017 19:43
[2017-07-05] MEDS: DEXMEDETOMIDINE INJ 1,000 MCG in SODIUM CHLOR 0.9% 250 ML INJ 240 ML IV PRN (21:01)
[2017-07-05] MEDS: HEPARIN-D5W 25,000 U/250 ML 250 ML IV PRN (21:54)
[2017-07-06] VITALS (20 sets, daily range): BP systolic 110–159; BP diastolic 54–72; PULSE 61–111; RESP 12–15; TEMP 97.6–99.1; O2SAT 93–100
[2017-07-06] MEDS: fentaNYL DRIP 250 ML IV PRN ×3 (01:56→21:43)
[2017-07-06] MEDS: INSULIN NovoLIN REGULAR SUPPLEMENTAL SCALE SQ SCH ×6 (02:00→22:00)
[2017-07-06] MEDS: RESP: ALBUTEROL 2.5 MG/IPRATROPIUM 0.5 MG NEB (SCH) INH ×2 (04:47→08:36)
[2017-07-06 05:14] LABS: AUTOMATED NEUTROPHIL # 8.1 TH/MM3 (1.8-7.7); HEMATOCRIT 40.2 % (35.0-46.0); HEMOGLOBIN 13.6 GM/DL (11.6-15.3); LYMPH % 3.6 % (9.0-44.0); LYMPHOCYTE # 0.3 TH/MM3 (1.0-4.8); MEAN CELL VOLUME 98.5 FL (80.0-100.0); MEAN CORPUSCULAR HEMOGLOBIN 33.4 PG (27.0-34.0); MEAN CORPUSCULAR HGB CONC 33.9 % (32.0-36.0); MEAN PLATELET VOLUME 10.8 FL (7.0-11.0); MONOCYTE # 0.4 TH/MM3 (0-0.9); NEUT % 91.4 % (16.0-70.0); PLATELET COUNT 184 TH/MM3 (150-450); RED BLOOD COUNT 4.08 MIL/MM3 (4.00-5.30); RED CELL DISTRIBUTION WIDTH 13.5 % (11.6-17.2); WHITE BLOOD COUNT 8.8 TH/MM3 (4.0-11.0)
[2017-07-06 05:22] LABS: BICARBONATE 24.7 MEQ/L (21.0-32.0); CALCIUM 7.9 MG/DL (8.5-10.1); CREATININE 3.59 MG/DL (0.50-1.00); PHOSPHORUS 5.5 MG/DL (2.5-4.9)
[2017-07-06] MEDS: methylPREDNISolone SOD SUCC 40 MG/1 ML VIAL IV PUSH SCH ×3 (05:37→21:42)
[2017-07-06] MEDS: LEVOTHYROXINE SODIUM 50 MCG TAB PO SCH ×2 (05:37→07:54)
[2017-07-06] MEDS: CALCIUM ACETATE 667 MG CAP PO SCH ×3 (07:54→17:46)
[2017-07-06] MEDS: CARVEDILOL 3.125 MG TAB PO SCH (07:54)
[2017-07-06] MEDS: FUROSEMIDE 100 MG/10 ML VIAL IV PUSH SCH (07:54)
[2017-07-06] MEDS: LINEZOLID 600 MG TAB PO SCH ×2 (07:54→21:42)
[2017-07-06] MEDS: ASPIRIN 81 MG CHEW TAB OG-TUBE SCH (07:54)
[2017-07-06] MEDS: FAMOTIDINE 20 MG/2 ML VIAL IV PUSH SCH ×2 (07:54→21:42)
[2017-07-06] MEDS: LEVOFLOXACIN/DEXTROSE 250 MG/50 ML IV SCH (07:55)
[2017-07-06] MEDS: SODIUM CHLORIDE 0.9% FLUSH 10 ML FLUSH IV FLUSH SCH ×2 (07:57→21:42)
[2017-07-06] MEDS: DEXMEDETOMIDINE INJ 1,000 MCG in SODIUM CHLOR 0.9% 250 ML INJ 240 ML IV PRN ×2 (07:59→18:31)
--- NOTE | 2017-07-06 08:06 | HHI.CCPN ---
Subjective Remarks/Hospital Course This is an 86-year-old female with a history of breast cancer status post right mastectomy, PE in 2010, who presented overnight with shortness of breath was found to have an elevated troponin at 1.89, BNP of 3291, creatinine 1.9, sodium 136, WBCs 12,000. She was admitted for workup of her shortness of breath, possible heart failure. To my knowledge and brief review of medical records she does not have a history of heart failure. This morning she had sudden acute change in mental status. Stroke alert was called. At the same time, should increasing oxygen requirement. When I evaluated the patient, she was obtunded with agonal respirations. I emergently intubated patient. We went down for stat CT head which was negative for acute bleed. We then proceeded for MRI/MRA of the brain. I did perform + critical care ultrasound which demonstrated severe left ventricular systolic dysfunction, preserved RV function , no pericardial effusion, dilated IVC without respiratory variation. The patient does have a history of prior PE, is currently on a heparin drip for possible NSTEMI, given her preserved RV function, is unlikely that massive PE has caused her acute decline. Given her elevated creatinine, we will avoid pulmonary angiogram at this time. Due to the patient's critical condition, no additional information is available from her. Due to the emergent nature of the consult, a complete review of the medical record was unavailable to me. 07/03 Patient is intubated and sedated with Fentanyl and Versed drips. On Heparin drip. Afebrile. 07/04 Patient remains intubated, sedated with Versed and Fentanyl drips. Afebrile.On Heparin drip. 07/05 Patient remains intubated and sedated. On Fentanyl, Precedex and Heparin drips. 07/06 No events overnight. On Precedex and Fentanyl infusion . Afebrile. renal function is worse today with Cr: 3.59 from 3.22 and UOP: 825ml in 24 hrs Objective Vital Signs Date Time Temp Pulse Resp B/P (MAP) Pulse Ox O2 Delivery O2 Flow Rate FiO2 07/06/17 06:00 78 07/06/17 04:45 100 30 07/06/17 04:45 Ventilator 07/06/17 04:00 98.2 15 139/65 (89) Intake and Output 207/06/17 07/07/17 08:00 16:00 00:00 Intake Total 1056 ml Output Total 450 ml Balance 606 ml Result Diagram: 07/06/17 0340 07/06/17 0340 Other Results Laboratory Tests Test 07/06/17 03:40 White Blood Count 8.8 TH/MM3 Red Blood Count 4.08 MIL/MM3 Hemoglobin 13.6 GM/DL Hematocrit 40.2 % Mean Corpuscular Volume 98.5 FL Mean Corpuscular Hemoglobin 33.4 PG Mean Corpuscular Hemoglobin Concent 33.9 % Red Cell Distribution Width 13.5 % Platelet Count 184 TH/MM3 Mean Platelet Volume 10.8 FL Neutrophils (%) (Auto) 91.4 % Lymphocytes (%) (Auto) 3.6 % Monocytes (%) (Auto) 5.0 % Eosinophils (%) (Auto) 0.0 % Basophils (%) (Auto) 0.0 % Neutrophils # (Auto) 8.1 TH/MM3 Lymphocytes # (Auto) 0.3 TH/MM3 Monocytes # (Auto) 0.4 TH/MM3 Eosinophils # (Auto) 0.0 TH/MM3 Basophils # (Auto) 0.0 TH/MM3 CBC Comment DIFF FINAL Differential Comment Activated Partial Thromboplast Time 64.3 SEC Blood Urea Nitrogen 105 MG/DL Creatinine 3.59 MG/DL Random Glucose 166 MG/DL Calcium Level 7.9 MG/DL Phosphorus Level 5.5 MG/DL Sodium Level 139 MEQ/L Potassium Level 3.3 MEQ/L Chloride Level 102 MEQ/L Carbon Dioxide Level 24.7 MEQ/L Anion Gap 12 MEQ/L Estimat Glomerular Filtration Rate 12 ML/MIN Imaging Last Impressions Chest X-Ray 07/04/17 0600 Signed Impressions: Service Date/Time: Tuesday, July 04, 2017 03:18 - CONCLUSION: 1. Slight increased right basilar opacity representing either atelectasis, consolidation , and/or effusion. 2. Mild increased atelectasis or consolidation at the left lung base. Dante Montes MD Abdomen/Pelvis CT 07/04/17 0000 Signed Impressions: Service Date/Time: Tuesday, July 04, 2017 16:27 - CONCLUSION: 1. Uncomplicated colonic diverticulosis. 2. 2.8 cm hyperdense exophytic lesion arising from the atrophic left kidney consistent with hyperdense cyst or possible solid lesion. 3. Probable sludge within the gallbladder. 4. Degenerative changes and scoliosis of the thoracolumbar spine. 5. Small bilateral pleural effusions. Abdelrahman Pritchard MD Renal Ultrasound 07/03/17 Signed Impressions: Service Date/Time: Monday, July 03, 2017 09:38 - CONCLUSION: Medical renal disease on the right. Nonvisualization of the left kidney. Whether this reflects agenesis or atrophy is uncertain. Wilfredo Ibrahim MD Head Magnetic Resonance Angiography 07/02/17 Signed Impressions: Service Date/Time: Sunday, July 02, 2017 09:06 - CONCLUSION: 1. No large vessel stenosis or aneurysm. 2. Normal variants as described above. Keith Kurtz MD Head CT 07/02/17 Signed Impressions: Service Date/Time: Sunday, July 02, 2017 08:47 - CONCLUSION: Right basal ganglia lacunar infarct, indeterminate age. Otherwise unremarkable CT brain. Keith Kurtz MD Brain MRI 07/02/17 Signed Impressions: Service Date/Time: Sunday, July 02, 2017 09:06 - CONCLUSION: 1. Old right-sided lacunar infarct versus prominent vascular channel. 2. Nonspecific white matter changes likely chronic ischemic small vessel vasculopathy with similar changes also noted within the brainstem and left thalamus. Keith Kurtz MD Objective Remarks GENERAL: Patient is 86 yo intubated and sedated SKIN: Warm and dry. HEAD: Normocephalic. EYES: No scleral icterus. No injection or drainage. NECK: Supple, trachea midline. No JVD or lymphadenopathy. CARDIOVASCULAR: Regular rate and rhythm without murmurs, gallops, or rubs. RESPIRATORY: Breath sounds equal bilaterally. No accessory muscle use. GASTROINTESTINAL: Abdomen soft, non-tender, nondistended. MUSCULOSKELETAL: No cyanosis, or edema. BACK: Nontender without obvious deformity. No CVA tenderness. Neuro: Sedated A/P Assessment and Plan Plan by systems: Neurologic: Metabolic encephalopathy - CT head 07/02: Negative for acute change, old right basal ganglia stroke - MRI/MRA brain 07/02: No acute findings -EEG 07/02: Mod. encephalopathy - On Fentanyl drip for sedation goal RASS -2. Daily sedation vacation - Precedex drip to facilitate with weaning trials. -Neuro is following- Dr. Burns. Respiratory: Acute hypoxic and hypercarbic respiratory failure - Head of bed elevated -Continue with vents support keep sat >92% -Bronchodilators, ICU vent bundle, SBT daily as mireya. Cardiovascular: NSTEMI CHF- Acute systolic Cardiomyopathy Monitor HR and HAMMAD keep MAP>65mmHg - cardiology is following- Dr. Beltre -Echo showed EF 30-35%, Global hypokinesis - Increase Coreg 6.25mg BID and ASA 81mg daily continue with heparin drip. Renal: Acute kidney injury superimposed on chronic renal insufficiency, unknown stage - Monitor renal function, I/O's, avoid nephrotoxins -Renal function worse today with Cr: 3.59 today from 3.22 UOP:825ml in 24 hrs - real US: medical renal disease on right, left kidney not visualized, -CT abd/pelvis: Uncomplicated colonic diverticulosis. 2.8 cm hyperdense exophytic lesion arising from the atrophic left kidney consistent with hyperdense cyst or possible solid lesion. Probable sludge within the gallbladder -Lasix 40mg IV daily- Renal is following- Dr. Crouch GI: Acute protein calorie malnutrition- moderate -tube feeds- Nepro @ 40ml/hr - on Pepcid for GI prophylaxis Heme History of PE in 2010 - On heparin drip - Monitor CBC, coags ID UTI Leukocytosis MRSA pneumonia Continue Levaquin, Zyvox and monitor for sign of infections ( Fever, WBC) 2/5 sputum cx: MRSA 2/4 nasal washing negative for Influenza. Urine cx: Group D enterococcus Endocrine: Hyperglycemia of critical illness -- SSI with accuchecks Prophylaxis: GI Prophylaxis n Pepcid DVT Prophylaxis -- SCDs Heparin drip Lines: Peripheral IVs [facility] Palliative care is following Poor prognosis given resp failure, encephalopathy, cardiomyopathy and worsening renal function. Level 3 Evonne Hunt MD Jul 06, 2017 08:06
[2017-07-06] MEDS: CARVEDILOL 6.25 MG TAB PO SCH ×2 (09:00→21:00)
[2017-07-06] MEDS ORDERED: POTASSIUM CHLOR 20 MEQ PREMIX 100 ML IV ONE (09:00)
[2017-07-06] MEDS: CHLORHEXIDINE 0.12% (ORAL KIT) 15 ML CUP MT SCH ×2 (09:24→21:43)
[2017-07-06] MEDS ORDERED: HALOPERIDOL LACTATE 5 MG/ML AMP IV PUSH ONE (09:45)
--- NOTE | 2017-07-06 11:22 | HHI.HCPN ---
Reason for visit a. To assist with evaluation and management of symptoms including: agitation , dyspnea b. To assist medical decision maker(s) with: better understanding of current medical conditions; weighing benefits/burdens of medical treatment options; making medical treatment decisions. . Subjective/Interval History Ms. Alvarez is an 86-year-old female who presented to [facility] ED on 2017 for evaluation of hypoxia after her oxygen saturations were noted to be low while she was being seen at a local urgent care. She was subsequently admitted with NSTEMI, CHF and COPD exacerbation, now with acute kidney injury. Pulmonology, cardiology and nephrology are following. Follow-up visit today for symptom management and clarification of medical treatment goals. Patient remains sedated and intubated on mechanical ventilation in the intensive care unit. Remains agitated on Fentanyl and Precedex infusion; additionally received Haldol 2 mg 1. = CT head 07/02/17 revealed old right basal ganglia stroke = MRI/MRA brain 07/02/17 showed no acute abnormalities = EEG 07/02/17 with moderate encephalopathy She continues to fail spontaneous breathing trials. Follow-up chest x-ray on 07/04 showing slight increase in right basilar opacity representing either atelectasis, consolidation and/or effusion. Mild increased atelectasis versus consolidation at the left lung base. On antibiotics for MRSA pneumonia. Renal functioning continues to deteriorate. BUN: 105, creatinine 3.59, GFR 12. UOP: 825 mL in the previous [address] abd/pelvis revealed uncomplicated colonic diverticulosis. 2.8 cm hyperdense exophytic lesion arising from the atrophic left kidney consistent with hyperdense cyst or possible solid lesion; probable sludge within the gallbladder. Nephrology (Dr. Crouch) following. Palliative care met with the patient's son and daughter who verbalize understating that give the shots multiorgan dysfunction, her overall prognosis is poor. Aggressive versus comfort focused goals were reviewed, and the process of cardiopulmonary resuscitation was discussed at length. Both children request the patient's CODE STATUS be changed to ALTERNATE CODE-intubation only. If the patient were to be inadvertently extubated; they would want her to be reintubated at this point in time. . Advance Directives Advance Directive Specifics Documented care wishes: It is unclear at this time if the patient has completed written advanced directives. The patient's daughter thinks she may have in 1994, she is not certain. She will attempt to locate them. . Significant change in goals: CODE STATUS changed to ALTERNATE CODE-intubation only. At this point in time if the patient were to be inadvertently extubated; they request that she be re- intubated. Objective Vital Signs Date Time Temp Pulse Resp B/P (MAP) Pulse Ox O2 Delivery O2 Flow Rate FiO2 07/06/17 08:49 99 Ventilator 30 07/06/17 08:49 97 30 07/06/17 08:40 30 07/06/17 08:40 97 Ventilator 30 07/06/17 06:00 78 07/06/17 04:45 100 30 07/06/17 04:45 100 Ventilator 30 07/06/17 04:00 30 07/06/17 04:00 98.2 61 15 139/65 (89) 98 07/06/17 04:00 61 07/06/17 02:42 98 30 07/06/17 02:00 67 07/06/17 00:00 98.4 66 12 142/66 (91) 98 07/06/17 00:00 66 07/06/17 00:00 30 07/05/17 23:49 98 30 07/05/17 22:02 99 30 07/05/17 22:00 61 07/05/17 20:14 96 30 07/05/17 20:00 30 07/05/17 20:00 65 07/05/17 20:00 98.4 67 13 124/59 (80) 94 07/05/17 18:00 65 07/05/17 18:00 65 13 162/71 (101) 95 07/05/17 17:30 66 12 132/63 (86) 96 07/05/17 17:00 66 12 132/60 (84) 96 07/05/17 16:30 66 12 131/63 (85) 98 07/05/17 16:13 98 30 07/05/17 16:00 67 07/05/17 16:00 98.2 67 12 123/57 (79) 95 07/05/17 16:00 30 07/05/17 15:30 70 15 117/58 (77) 95 07/05/17 15:01 83 21 130/65 (86) 84 07/05/17 15:00 70 16 95 07/05/17 14:00 64 12 120/56 (77) 97 07/05/17 14:00 64 07/05/17 13:30 64 13 109/57 (74) 96 07/05/17 13:00 66 12 103/56 (72) 95 07/05/17 12:30 68 12 100/56 (71) 94 07/05/17 12:00 30 07/05/17 12:00 98.7 76 13 106/54 (71) 94 07/05/17 12:00 76 07/05/17 11:45 30 07/05/17 11:31 109 42 124/81 (95) 93 07/05/17 11:26 94 30 Intake & Output 07/06/17 07/06/17 07:00 19:00 Intake Total 1108 ml Output Total 450 ml Balance 658 ml Intake IV Total 558 ml Tube Feeding 450 ml Tube Irrigant 100 ml Output Urine Total 450 ml # Bowel Movements 1 . Physical Exam CONSTITUTIONAL/GENERAL: This is an elderly, female patient currently intubated on mechanical ventilation TUBES/LINES/DRAINS: PIV x3, Collier SKIN: Ecchymoses on upper extremities. No wounds seen anteriorly. Skin temperature appropriate. Not diaphoretic. HEAD: Atraumatic. Normocephalic. EYES: Pupils equal and round and reactive. Extraocular motions intact. No scleral icterus. No injection or drainage. Fundi not examined. ENT: Nose without bleeding or purulent drainage. Oral mucosa dry. NECK: Trachea midline. Supple, nontender. No palpable thyroid enlargement or nodularity. CARDIOVASCULAR: Regular rate and rhythm without murmurs, gallops, or rubs. No JVD. Peripheral pulses symmetric. RESPIRATORY/CHEST: Intubated on mechanical ventilation-failing spontaneous breathing trials. Breath sounds diminished bilaterally. GASTROINTESTINAL: Abdomen soft, non-tender, nondistended. No hepato-splenomegaly , or palpable masses. No guarding. Bowel sounds present. GENITOURINARY: Without palpable bladder distension. Collier catheter in place. MUSCULOSKELETAL: Extremities without clubbing, cyanosis, or edema. No mottling or clubbing. LYMPHATICS: No palpable cervical or supraclavicular adenopathy. NEUROLOGICAL: Sedated on on Fentanyl and Precedex drips. Ongoing agitation. Does not respond to questions; not follow commands PSYCHIATRIC: Unable to assess given patient's clinical condition. . Diagnostic Tests Laboratory Laboratory Tests Test 07/03/17 12:12 07/04/17 04:02 07/04/17 08:30 07/04/17 14:29 Blood Gas Puncture Site LT RADIAL Blood Gas Patient Temperature 98.6 Blood Gas HCO3 23 mmol/L (22-26) Blood Gas Base Excess -2.1 mmol/L (-2-2) Blood Gas Oxygen Saturation 96 % (90-100) Arterial Blood pH 7.34 (7.380-7.420) Arterial Blood Partial Pressure CO2 44 mmHg (38-42) Arterial Blood Partial Pressure O2 115 mmHg (61-120) Arterial Blood Oxygen Content 17.2 Vol % (12.0-20.0) Arterial Blood Carboxyhemoglobin 0.7 % (0-4) Arterial Blood Methemoglobin 1.2 % (0-2) Blood Gas Hemoglobin 12.6 G/DL (12.0-16.0) Oxygen Delivery Device VENTILATOR Blood Gas Ventilator Setting PRVC/AC Blood Gas Inspired Oxygen 40 % White Blood Count 9.0 TH/MM3 (4.0-11.0) Red Blood Count 4.00 MIL/MM3 (4.00-5.30) Hemoglobin 13.3 GM/DL (11.6-15.3) Hematocrit 39.4 % (35.0-46.0) Mean Corpuscular Volume 98.6 FL (80.0-100.0) Mean Corpuscular Hemoglobin 33.2 PG (27.0-34.0) Mean Corpuscular Hemoglobin Concent 33.6 % (32.0-36.0) Red Cell Distribution Width 13.9 % (11.6-17.2) Platelet Count 169 TH/MM3 (150-450) Mean Platelet Volume 10.1 FL (7.0-11.0) Neutrophils (%) (Auto) 93.0 % (16.0-70.0) Lymphocytes (%) (Auto) 3.8 % (9.0-44.0) Monocytes (%) (Auto) 3.2 % (0.0-8.0) Eosinophils (%) (Auto) 0.0 % (0.0-4.0) Basophils (%) (Auto) 0.0 % (0.0-2.0) Neutrophils # (Auto) 8.3 TH/MM3 (1.8-7.7) Lymphocytes # (Auto) 0.3 TH/MM3 (1.0-4.8) Monocytes # (Auto) 0.3 TH/MM3 (0-0.9) Eosinophils # (Auto) 0.0 TH/MM3 (0-0.4) Basophils # (Auto) 0.0 TH/MM3 (0-0.2) CBC Comment DIFF FINAL Differential Comment Activated Partial Thromboplast Time 97.9 SEC (24.3-30.1) 49.8 SEC (24.3-30.1) 46.9 SEC (24.3-30.1) Blood Urea Nitrogen 68 MG/DL (7-18) Creatinine 2.75 MG/DL (0.50-1.00) Random Glucose 136 MG/DL (74-106) Total Protein 6.0 GM/DL (6.4-8.2) Albumin 2.9 GM/DL (3.4-5.0) Calcium Level 7.5 MG/DL (8.5-10.1) Phosphorus Level 6.3 MG/DL (2.5-4.9) Alkaline Phosphatase 50 U/L (45-117) Aspartate Amino Transf (AST/SGOT) 22 U/L (15-37) Alanine Aminotransferase (ALT/SGPT) 21 U/L (10-53) Total Bilirubin 0.2 MG/DL (0.2-1.0) Sodium Level 138 MEQ/L (136-145) Potassium Level 3.9 MEQ/L (3.5-5.1) Chloride Level 102 MEQ/L (98-107) Carbon Dioxide Level 24.6 MEQ/L (21.0-32.0) Anion Gap 11 MEQ/L (5-15) Estimat Glomerular Filtration Rate 16 ML/MIN (>89) Test 07/05/17 04:40 07/06/17 03:40 White Blood Count 8.9 TH/MM3 (4.0-11.0) 8.8 TH/MM3 (4.0-11.0) Red Blood Count 3.99 MIL/MM3 (4.00-5.30) 4.08 MIL/MM3 (4.00-5.30) Hemoglobin 13.4 GM/DL (11.6-15.3) 13.6 GM/DL (11.6-15.3) Hematocrit 39.5 % (35.0-46.0) 40.2 % (35.0-46.0) Mean Corpuscular Volume 99.0 FL (80.0-100.0) 98.5 FL (80.0-100.0) Mean Corpuscular Hemoglobin 33.5 PG (27.0-34.0) 33.4 PG (27.0-34.0) Mean Corpuscular Hemoglobin Concent 33.8 % (32.0-36.0) 33.9 % (32.0-36.0) Red Cell Distribution Width 13.6 % (11.6-17.2) 13.5 % (11.6-17.2) Platelet Count 193 TH/MM3 (150-450) 184 TH/MM3 (150-450) Mean Platelet Volume 10.5 FL (7.0-11.0) 10.8 FL (7.0-11.0) Neutrophils (%) (Auto) 93.7 % (16.0-70.0) 91.4 % (16.0-70.0) Lymphocytes (%) (Auto) 3.2 % (9.0-44.0) 3.6 % (9.0-44.0) Monocytes (%) (Auto) 3.0 % (0.0-8.0) 5.0 % (0.0-8.0) Eosinophils (%) (Auto) 0.0 % (0.0-4.0) 0.0 % (0.0-4.0) Basophils (%) (Auto) 0.1 % (0.0-2.0) 0.0 % (0.0-2.0) Neutrophils # (Auto) 8.3 TH/MM3 (1.8-7.7) 8.1 TH/MM3 (1.8-7.7) Lymphocytes # (Auto) 0.3 TH/MM3 (1.0-4.8) 0.3 TH/MM3 (1.0-4.8) Monocytes # (Auto) 0.3 TH/MM3 (0-0.9) 0.4 TH/MM3 (0-0.9) Eosinophils # (Auto) 0.0 TH/MM3 (0-0.4) 0.0 TH/MM3 (0-0.4) Basophils # (Auto) 0.0 TH/MM3 (0-0.2) 0.0 TH/MM3 (0-0.2) CBC Comment DIFF FINAL DIFF FINAL Differential Comment Activated Partial Thromboplast Time 53.3 SEC (24.3-30.1) 64.3 SEC (24.3-30.1) Blood Urea Nitrogen 88 MG/DL (7-18) 105 MG/DL (7-18) Creatinine 3.22 MG/DL (0.50-1.00) 3.59 MG/DL (0.50-1.00) Random Glucose 155 MG/DL (74-106) 166 MG/DL (74-106) Calcium Level 7.8 MG/DL (8.5-10.1) 7.9 MG/DL (8.5-10.1) Phosphorus Level 6.3 MG/DL (2.5-4.9) 5.5 MG/DL (2.5-4.9) Magnesium Level 2.5 MG/DL (1.5-2.5) Sodium Level 138 MEQ/L (136-145) 139 MEQ/L (136-145) Potassium Level 3.9 MEQ/L (3.5-5.1) 3.3 MEQ/L (3.5-5.1) Chloride Level 102 MEQ/L (98-107) 102 MEQ/L (98-107) Carbon Dioxide Level 24.3 MEQ/L (21.0-32.0) 24.7 MEQ/L (21.0-32.0) Anion Gap 12 MEQ/L (5-15) 12 MEQ/L (5-15) Estimat Glomerular Filtration Rate 14 ML/MIN (>89) 12 ML/MIN (>89) Result Diagram: 07/06/17 0340 07/06/17 0340 Microbiology Microbiology Date/Time Source Procedure Growth Status 07/03/17 12:30 Sputum Endotracheal Gram Stain - Final Complete 07/03/17 12:30 Sputum Culture - Final S. Aureus Mrsa Complete . Imaging . Last 72 hours Impressions Chest X-Ray 07/04/17 0600 Signed Impressions: Service Date/Time: Tuesday, July 04, 2017 03:18 - CONCLUSION: 1. Slight increased right basilar opacity representing either atelectasis, consolidation , and/or effusion. 2. Mild increased atelectasis or consolidation at the left lung base. Dante Montes MD Abdomen/Pelvis CT 07/04/17 0000 Signed Impressions: Service Date/Time: Tuesday, July 04, 2017 16:27 - CONCLUSION: 1. Uncomplicated colonic diverticulosis. 2. 2.8 cm hyperdense exophytic lesion arising from the atrophic left kidney consistent with hyperdense cyst or possible solid lesion. 3. Probable sludge within the gallbladder. 4. Degenerative changes and scoliosis of the thoracolumbar spine. 5. Small bilateral pleural effusions. Abdelrahman Pritchard MD . Procedures 07/02/17: Intubation 07/02/17: NGT placed . Assessment and Plan Disease Oriented Problem List: (1) Non-ST elevation [place] (NSTEMI) (2) CHF (congestive heart failure) (3) Acute exacerbation of COPD with asthma (4) Encephalopathy, metabolic (5) Cardiomyopathy (6) Acute renal failure (7) Hypertension Symptom Scale: (1) Agitation (2) Shortness of breath Pertinent Non-Medical Issues Psychosocial: Patient was born in [place]. She went to college in [place] and progressively worked her way south. She was to her first for an unknown length of time. Together they had 2 children (Dotty and Zeyad) . Dotty states her parents got when she was about 5 years old. Patient's daughter states her mom had a very brief second marriage. 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 Spiritual: Buddhist olive Legal: Per [place] statutes, in the absence of written advanced directives healthcare proxy decision-making falls to the patient's 2 children Ethical issues impacting care: No known ethical issues impacting care at this time. . Important Contacts Sonali Dunbar, daughter: [phone] Zeyad and Yumi Torres, family/other: [phone] or [phone] . Prognosis Patient's is an 86-year-old female admitted with an NSTEMI, CHF and COPD exacerbation. She remains intubated on mechanical ventilation; she is not tolerating CPAP trials. She remains extremely agitated on Fentanyl and Precedex drips. Now with worsening renal functioning; will likely need to make a decision on whether or not to proceed with hemodialysis in upcoming days. Given patient's advanced age and multi-organ dysfunction, she is high for ongoing decline and consultations. . Code Status: Full Code Plan * ALTERNATE CODE-intubation only * Decision-making: Patient does not have insight or judgment related to her current medical conditions; it is unclear if she will regain capacity in the future. Per [place] statutes, in the absence of written advanced directives healthcare proxy decision-making falls to the patient's 2 children * GOAL AGGRESSIVE * Discussed patient with bedside nurse (Jana) and nephrology (Dr. Crouch) and Dr. Moy. * Palliative care met with the patient's son and daughter who verbalize understating that give the shots multiorgan dysfunction, her overall prognosis is poor. Aggressive versus comfort focused goals were reviewed, and the process of cardiopulmonary resuscitation was discussed at length. Both children request the patient's CODE STATUS be changed to ALTERNATE CODE-intubation only. If the patient were to be inadvertently extubated; they would want her to be reintubated at this point in time. * Symptom management: = Agitation: Patient remains agitated on Fentanyl and Precedex; received Haldol 2mg x1 this morning 07/06/16. Patient had sudden acute changes in mental status and a stroke alert was called. The patient was obtunded with agonal respirations requiring emergent intubation. 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 MRI/MRA brain with no acute findings. EEG with moderate encephalopathy = Dyspneas: Patient remains intubated on mechanical ventilation, not tolerating spontaneous breathing trails. 07/01/17: Chest x-ray at the urgent care showed cardiomegaly; there were no effusion; there was aortic calcification and patchy bilateral basilar airspace disease noted. On antibiotics for MRSA ammonia. * Palliative care continue to follow to establish trust, assist with symptom management and clarification of medical treatment goals. . Mayra Barreto Jul 06, 2017 11:22
--- NOTE | 2017-07-06 12:03 | HHI.NPPN ---
Subjective Renal Failure: Acute Interval History Renal function is worse. She remains intubated, agitated, non oliguric. (Nely Mustafa) Review of Systems General General Remarks unable to obtain (Neyl Mustafa) Objective Data Data Vital Signs Date Time Temp Pulse Resp B/P (MAP) Pulse Ox O2 Delivery O2 Flow Rate FiO2 07/06/17 11:32 97 30 07/06/17 08:49 99 Ventilator 30 07/06/17 08:49 97 30 07/06/17 08:40 30 07/06/17 08:40 97 Ventilator 30 07/06/17 06:00 78 07/06/17 04:45 100 30 07/06/17 04:45 100 Ventilator 30 07/06/17 04:00 30 07/06/17 04:00 98.2 61 15 139/65 (89) 98 07/06/17 04:00 61 07/06/17 02:42 98 30 07/06/17 02:00 67 07/06/17 00:00 98.4 66 12 142/66 (91) 98 07/06/17 00:00 66 07/06/17 00:00 30 07/05/17 23:49 98 30 07/05/17 22:02 99 30 07/05/17 22:00 61 07/05/17 20:14 96 30 07/05/17 20:00 30 07/05/17 20:00 65 07/05/17 20:00 98.4 67 13 124/59 (80) 94 07/05/17 18:00 65 07/05/17 18:00 65 13 162/71 (101) 95 07/05/17 17:30 66 12 132/63 (86) 96 07/05/17 17:00 66 12 132/60 (84) 96 07/05/17 16:30 66 12 131/63 (85) 98 07/05/17 16:13 98 30 07/05/17 16:00 67 07/05/17 16:00 98.2 67 12 123/57 (79) 95 07/05/17 16:00 30 07/05/17 15:30 70 15 117/58 (77) 95 07/05/17 15:01 83 21 130/65 (86) 84 2/7/18 15:00 70 16 95 07/05/17 14:00 64 12 120/56 (77) 97 07/05/17 14:00 64 07/05/17 13:30 64 13 109/57 (74) 96 07/05/17 13:00 66 12 103/56 (72) 95 07/05/17 12:30 68 12 100/56 (71) 94 (Nely Mustafa) -: 07/06/17 0340 07/06/17 0340 Imaging Last 72 hours Impressions Chest X-Ray 07/04/17 0600 Signed Impressions: Service Date/Time: Tuesday, July 04, 2017 03:18 - CONCLUSION: 1. Slight increased right basilar opacity representing either atelectasis, consolidation , and/or effusion. 2. Mild increased atelectasis or consolidation at the left lung base. Dante Montes MD Abdomen/Pelvis CT 07/04/17 0000 Signed Impressions: Service Date/Time: Tuesday, July 04, 2017 16:27 - CONCLUSION: 1. Uncomplicated colonic diverticulosis. 2. 2.8 cm hyperdense exophytic lesion arising from the atrophic left kidney consistent with hyperdense cyst or possible solid lesion. 3. Probable sludge within the gallbladder. 4. Degenerative changes and scoliosis of the thoracolumbar spine. 5. Small bilateral pleural effusions. Abdelrahman Pritchard MD Tubes & Lines Comment fentanyl, precedex (Nely Mustafa) Physical Exam General Appearance: No Acute Distress Appearance Remarks eyes open and agitated on vent, ETT in place (Nely Mustafa) Eyes Eye Exam: Pupils Equal (Nely Mustafa) Throat Throat Exam: Oral Mucosa [place] & Moist (Nely Mustafa) Pulmonary Resp Exam: No Distress, Rhonchi Resp Remarks expiratory rhonchi (Nely Mustafa) Cardiology CV Exam: Regular, Normal Sinus Rhythm (Nely Mustafa) Gastrointestinal/Abdomen GI Exam: Non-Tender, Bowel Sounds Present (Nely Mustafa) Musculoskeletal MS Exam: Joints Intact, Normal Tone, Unable to Ambulate (Nely Msutafa) Integumentary Skin Exam: Warm, Dry, Intact (Nely Mustafa) Extremeties Extremities Exam: No Edema, Pedal Pulses Palpable (Nely Mustafa) Neurologic Neuro Exam: Unresponsive, Sedated (Nely Mustafa) Assessment/Plan Discussed Condition With: Son, Daughter Assessment Summary: LEE/Acute Renal Failure, Acute Tubular Necrosis, CKD Stage III, CKD Stage IV Problem List: (1) Acute renal failure ICD Codes: N17.9 - Acute kidney failure, unspecified Plan: She most likely has underlying CKD, in 2010 her creatinine was 1.6-1.7, GFR 28-30, Stage 3-4. Also has left renal atrophy LEE may be due to CHF exacerbation and increased renal vein pressure, also NSTEMI Renal function is declining She is non oliguric She is on Lasix once daily currently (IV) She may need dialysis in upcoming days. However the patient was a DNR prior to this and expressed not wanting aggressive treatment. The family is to meet with palliative care to discuss options. She may not do well on dialysis given overall condition. Repeat labs tomorrow, we will dialyze if the family wishes Maintain MAP > 65mmHg (2) CHF (congestive heart failure) ICD Codes: I50.9 - Heart failure, unspecified Status: Acute Plan: Echo shows EF 30-35% Follow fluid status, I/O Diuresis as above, titrate as needed Achieve negative fluid balance Avoid IVF On 30% FiO2 currently, CPAP and vent weening as tolerated and per protocol (3) Non-ST elevation RI (NSTEMI) ICD Codes: I21.4 - Non-ST elevation (NSTEMI) myocardial infarction Status: Acute Plan: Cardiology following, troponin trending down On Heparin gtt, appreciate further recommendations (4) Hypertension ICD Codes: I10 - Essential (primary) hypertension Plan: Monitor blood pressure Borderline hypotensive On coreg Plan (Nely Mustafa) Plan patient was seen and examined. Agree with above assessment and plan. Prognosis is poor. Discussed with patient's daughter at the bedside. Dialysis if family decides to pursue aggressive care. (Danie Crouch MD) Nely uMstafa Jul 06, 2017 12:03 Danie Crouch MD Jul 06, 2017 16:48
--- NOTE | 2017-07-06 12:17 | HHI.PR ---
Subjective Remarks Sedated with versed and Fentanyl. On Heparin drip.On antibiotics for MRSA Pneumonia. No fever. FIO2 at 30 % and on Vent rate 12. Failed CPAP trail today. Agitated when on CPAP. Objective Vital Signs Date Time Temp Pulse Resp B/P (MAP) Pulse Ox O2 Delivery O2 Flow Rate FiO2 07/06/17 11:32 97 30 07/06/17 08:49 99 Ventilator 30 07/06/17 08:49 97 30 07/06/17 08:40 30 07/06/17 08:40 97 Ventilator 30 07/06/17 06:00 78 07/06/17 04:45 100 30 07/06/17 04:45 100 Ventilator 30 07/06/17 04:00 30 07/06/17 04:00 98.2 61 15 139/65 (89) 98 07/06/17 04:00 61 07/06/17 02:42 98 30 07/06/17 02:00 67 07/06/17 00:00 98.4 66 12 142/66 (91) 98 07/06/17 00:00 66 07/06/17 00:00 30 07/05/17 23:49 98 30 07/05/17 22:02 99 30 07/05/17 22:00 61 07/05/17 20:14 96 30 07/05/17 20:00 30 07/05/17 20:00 65 07/05/17 20:00 98.4 67 13 124/59 (80) 94 07/05/17 18:00 65 07/05/17 18:00 65 13 162/71 (101) 95 07/05/17 17:30 66 12 132/63 (86) 96 07/05/17 17:00 66 12 132/60 (84) 96 07/05/17 16:30 66 12 131/63 (85) 98 07/05/17 16:13 98 30 07/05/17 16:00 67 07/05/17 16:00 98.2 67 12 123/57 (79) 95 07/05/17 16:00 30 07/05/17 15:30 70 15 117/58 (77) 95 07/05/17 15:01 83 21 130/65 (86) 84 07/05/17 15:00 70 16 95 07/05/17 14:00 64 12 120/56 (77) 97 2/7/18 14:00 64 07/05/17 13:30 64 13 109/57 (74) 96 07/05/17 13:00 66 12 103/56 (72) 95 07/05/17 12:30 68 12 100/56 (71) 94 I/O 07/05/17 07/05/17 07/05/17 07/06/17 07/06/17 07/06/17 07:00 15:00 23:00 07:00 15:00 23:00 Intake Total 599 ml 352 ml 756.5 ml 1056 ml Output Total 250 ml 375 ml 450 ml Balance 349 ml 352 ml 381.5 ml 606 ml Intake IV Total 416 ml 352 ml 300.5 ml 506 ml Tube Feeding 153 ml 356 ml 450 ml Tube Irrigant 100 ml 100 ml Other 30 ml Output Urine Total 250 ml 375 ml 450 ml # Bowel Movements 1 Result Diagram: 07/06/17 0340 07/06/17 0340 Objective Remarks GENERAL: This averagely built elderly lady is intubated, sedated on ventilator support. HEAD, EYES, EARS, NOSE, THROAT: Head normocephalic. The pupils are reactive and equal. Tongue is moist. Throat is clear. NECK: The neck is supple with venous distention. Trachea is midline. No thyroid enlargement. CHEST: Decreased breath sounds at the bases with occasional wheezes. HEART: The heart sounds are irregular. S1 and S2. No definite murmur. No S3. ABDOMEN: The abdomen is soft and nontender. No organomegaly. The bowel sounds are active. EXTREMITIES: Decreased pulses.Mild edema NEUROLOGIC: Reflexes are not elicited. The patient is sedated. SKIN: No lesions are noted. Assessment and Plan Assessment and Plan ASSESSMENT: 1. Ventilator-dependent respiratory failure. 2. Metabolic encephalopathy. 3. Hypercapnic respiratory failure. 4. Congestive heart failure. 5. NSTEMI. 6. Acute kidney injury with chronic kidney disease. 7. COPD with emphysema. Plan : 1. Wean to CPAP if tolerating 2. Reduce IV Sedation. 3. Cont solumedrol 40 mg IV q12h 4. CBC,BMP in am 5. Nebs qid , duoneb 6. Antibiotics as ordered 7. Add Xanax .25 mg q8h. Bucky Og MD Jul 06, 2017 12:17
[2017-07-06] MEDS: ALPRAZolam 0.25 MG TAB PO SCH ×2 (14:17→21:42)
[2017-07-06] MEDS: PROPOFOL 1000 MG/100 ML INJ 100 ML IV PRN (15:10)
[2017-07-07] VITALS (13 sets, daily range): BP systolic 94–201; BP diastolic 51–97; PULSE 51–90; RESP 6–12; TEMP 97.2–98.6; O2SAT 50–100
[2017-07-07] MEDS: INSULIN NovoLIN REGULAR SUPPLEMENTAL SCALE SQ SCH ×3 (02:00→09:06)
[2017-07-07 04:00] LABS: AUTOMATED NEUTROPHIL # 8.6 TH/MM3 (1.8-7.7); BASOPHIL % 0.1 % (0.0-2.0); HEMATOCRIT 40.1 % (35.0-46.0); HEMOGLOBIN 13.4 GM/DL (11.6-15.3); LYMPH % 6.9 % (9.0-44.0); LYMPHOCYTE # 0.7 TH/MM3 (1.0-4.8); MEAN CORPUSCULAR HEMOGLOBIN 33.2 PG (27.0-34.0); MEAN CORPUSCULAR HGB CONC 33.5 % (32.0-36.0); MEAN PLATELET VOLUME 10.5 FL (7.0-11.0); MONO % 4.3 % (0.0-8.0); MONOCYTE # 0.4 TH/MM3 (0-0.9); NEUT % 88.7 % (16.0-70.0); PLATELET COUNT 165 TH/MM3 (150-450); RED BLOOD COUNT 4.05 MIL/MM3 (4.00-5.30); RED CELL DISTRIBUTION WIDTH 13.7 % (11.6-17.2); WHITE BLOOD COUNT 9.7 TH/MM3 (4.0-11.0)
[2017-07-07 04:20] LABS: ALBUMIN 2.4 GM/DL (3.4-5.0); ALT (GPT) 21 U/L (10-53); AST (GOT) 19 U/L (15-37); BICARBONATE 24.8 MEQ/L (21.0-32.0); BLOOD UREA NITROGEN 113 MG/DL (7-18); CALCIUM 7.5 MG/DL (8.5-10.1); CHLORIDE 105 MEQ/L (98-107); CREATININE 3.44 MG/DL (0.50-1.00); GLOMERULAR FILTRATION RATE 13 ML/MIN (>89); GLUCOSE,RANDOM 192 MG/DL (74-106); SODIUM (NA) 142 MEQ/L (136-145)
[2017-07-07 04:21] LABS: ALKALINE PHOSPHATASE 39 U/L (45-117); TOTAL BILIRUBIN ADULT 0.2 MG/DL (0.2-1.0); TOTAL PROTEIN 5.1 GM/DL (6.4-8.2)
[2017-07-07] MEDS: ALPRAZolam 0.25 MG TAB PO SCH (05:39)
[2017-07-07] MEDS: methylPREDNISolone SOD SUCC 40 MG/1 ML VIAL IV PUSH SCH (05:40)
[2017-07-07] MEDS: PROPOFOL 1000 MG/100 ML INJ 100 ML IV PRN (06:38)
--- NOTE | 2017-07-07 06:42 | HHI.PR ---
Review/Management Diagnosis/Plan: (1) Encephalopathy, metabolic ICD Codes: G93.41 - Metabolic encephalopathy Status: Acute Plan: 06/30 resp distress/chf mri brain- old infarct. mra brain- no large vessel occlusion with hx of pulm embolus and depressed ef should be on coumadin long-term recs following motor request with all 4 ext medical management palliative care following (2) Acute exacerbation of COPD with asthma ICD Codes: J44.1 - Chronic obstructive pulmonary disease with (acute) exacerbation; J45.901 - Unspecified asthma with (acute) exacerbation Status: Acute Plan: per ccm (3) CHF (congestive heart failure) ICD Codes: I50.9 - Heart failure, unspecified Status: Acute Plan: per ccm/cardiology (4) Non-ST elevation [place] (NSTEMI) ICD Codes: I21.4 - Non-ST elevation (NSTEMI) myocardial infarction Status: Acute Plan: seen by cardiology, felt to have ischemic cardiomyopathy Subjective Subjective Comments No acute events reported Active Medications Current Medications Medications (Trade) Dose Ordered Sig/Johanna Route Start Time Stop Time Status Last Admin Heparin Sodium/ Dextrose 250 ml @ 7 mls/hr TITRATE PRN IV 07/02/17 02:00 07/05/17 21:54 (NS Flush) 2 ml UNSCH PRN IV FLUSH 07/02/17 02:00 (NS Flush) 2 ml BID IV FLUSH 07/02/17 09:00 07/06/17 21:42 (Tylenol) 650 mg Q4H PRN PO 07/02/17 02:00 (Zofran Inj) 4 mg Q6H PRN IVP 07/02/17 02:00 (Narcan Inj) 0.4 mg UNSCH PRN IV PUSH 07/02/17 02:00 (Senokot) 17.2 mg Q12H PRN PO 07/02/17 02:00 (Dulcolax Supp) 10 mg DAILY PRN RECTAL 07/02/17 02:00 (Lactulose Liq) 30 ml DAILY PRN PO 07/02/17 02:00 (Synthroid) 50 mcg DAILY@0700 PO 07/02/17 07:00 07/06/17 07:54 (Catapres) 0.1 mg Q6H PRN PO 07/02/17 06:45 07/04/17 04:30 (Trandate) 100 mg DAILY PO 07/02/17 07:15 Future Hold 07/02/17 07:12 (SoluMEDROL INJ) 40 mg Q8HR IV PUSH 07/02/17 07:15 07/07/17 05:40 (K-Lyte Cl Eff) 50 meq UNSCH PRN PO 07/02/17 10:00 (Peridex 0.12% Liq) 15 ml BID@08,20 MT 07/02/17 20:00 07/06/17 21:43 (Duoneb Neb) 1 ampule Q2HR NEB PRN INH 07/02/17 10:00 Fentanyl Citrate 250 ml @ 5 mls/hr TITRATE PRN IV 07/02/17 10:30 07/06/17 21:43 (Brethine Inj) 1 mg UNSCH PRN SQ 07/02/17 13:30 (D50w (Vial) Inj) 50 ml UNSCH PRN IV PUSH 07/03/17 09:30 (Glucagon Inj) 1 mg UNSCH PRN OTHER 07/03/17 09:30 (NovoLIN R SUPPLEMENTAL SCALE) 1 Q4H SQ 07/03/17 10:00 07/07/17 05:40 (Aspirin Chew) 81 mg DAILY OG-TUBE 07/03/17 11:00 07/06/17 07:54 (Pepcid Inj) 10 mg Q12HR IV PUSH 07/03/17 21:00 07/06/17 21:42 (Lasix Inj) 40 mg DAILY IV PUSH 07/04/17 09:00 07/06/17 07:54 Levofloxacin/ Dextrose 50 ml @ 50 mls/hr Q24H IV 07/04/17 10:00 07/06/17 07:55 (Phoslo) 667 mg TID PO 07/04/17 13:00 07/06/17 17:46 (Zyvox) 600 mg Q12HR PO 07/04/17 14:45 07/06/17 21:42 Dexmedetomidine HCl 1000 mcg/ Sodium Chloride 250 ml @ 3.12 mls/hr TITRATE PRN IV 07/05/17 18:00 07/06/17 18:31 (Coreg) 6.25 mg Q12HR PO 07/06/17 09:00 (Xanax) 0.25 mg Q8HR PO 07/06/17 14:00 2/9/18 05:39 Propofol 100 ml @ 1.86 mls/hr TITRATE PRN IV 07/06/17 14:45 07/07/17 06:38 Allergies Allergies Coded Allergies allopurinol (Unverified Allergy, Severe, RASH; SKIN PEELING, 01/10/17) coconut (Unverified Allergy, Severe, RESP DISTRESS, 01/10/17) levothyroxine (Unverified Allergy, Severe, ALLERGIC TO "GENERIC' SYNTHROID, ) levothyroxine sodium (Unverified Allergy, Severe, ALLERGIC TO "GENERIC' SYNTHROID, 01/10/17) penicillin G (Unverified Allergy, Severe, RASH, 01/10/17) tetanus toxoid, adsorbed (Unverified Allergy, Severe, 01/10/17) Uncoded Allergies DILL ( Allergy, Severe, 05/18/11) Review of Systems All other ROS: Unable to obtain Exam I&O / VS Vital Signs Date Time Temp Pulse Resp B/P (MAP) Pulse Ox O2 Delivery O2 Flow Rate FiO2 07/07/17 06:00 66 07/07/17 04:45 97 30 07/07/17 04:00 98.2 51 12 101/52 (68) 100 07/07/17 04:00 30 07/07/17 04:00 51 07/07/17 02:00 53 07/07/17 01:35 98 30 07/07/17 00:00 30 07/07/17 00:00 98.6 53 12 101/51 (68) 97 07/07/17 00:00 53 07/06/17 22:10 96 30 07/06/17 22:00 81 07/06/17 20:38 98 30 07/06/17 20:30 30 07/06/17 20:00 30 07/06/17 20:00 98.4 63 12 110/54 (72) 96 07/06/17 20:00 63 07/06/17 18:00 66 07/06/17 16:12 95 30 07/06/17 16:00 30 07/06/17 16:00 73 07/06/17 16:00 99.1 73 12 139/65 (89) 95 07/06/17 14:00 105 2/8/18 12:00 30 07/06/17 12:00 80 07/06/17 12:00 98.0 80 14 159/72 (101) 93 07/06/17 11:32 97 30 07/06/17 10:00 111 07/06/17 08:49 99 Ventilator 30 07/06/17 08:49 97 30 07/06/17 08:40 30 07/06/17 08:40 97 Ventilator 30 07/06/17 08:00 97.6 72 12 140/63 (88) 97 07/06/17 08:00 72 07/06/17 08:00 30 Exam Comments intubated, on sedative gtt's, alerts, folliwng this am with all 4 ext, closes eyes and damon all 4 limbs, shows 2 fingers, ou 2mm sluggish, mild blink to threat , face sym, damon to gravity with tactile stimulation, no clonus, planterflexor Objective Micro and Labs Laboratory Tests Test 07/07/17 03:20 White Blood Count 9.7 Red Blood Count 4.05 Hemoglobin 13.4 Hematocrit 40.1 Mean Corpuscular Volume 99.0 Mean Corpuscular Hemoglobin 33.2 Mean Corpuscular Hemoglobin Concent 33.5 Red Cell Distribution Width 13.7 Platelet Count 165 Mean Platelet Volume 10.5 Neutrophils (%) (Auto) 88.7 Lymphocytes (%) (Auto) 6.9 Monocytes (%) (Auto) 4.3 Eosinophils (%) (Auto) 0.0 Basophils (%) (Auto) 0.1 Neutrophils # (Auto) 8.6 Lymphocytes # (Auto) 0.7 Monocytes # (Auto) 0.4 Eosinophils # (Auto) 0.0 Basophils # (Auto) 0.0 CBC Comment DIFF FINAL Differential Comment Blood Urea Nitrogen 113 Creatinine 3.44 Random Glucose 192 Total Protein 5.1 Albumin 2.4 Calcium Level 7.5 Alkaline Phosphatase 39 Aspartate Amino Transf (AST/SGOT) 19 Alanine Aminotransferase (ALT/SGPT) 21 Total Bilirubin 0.2 Sodium Level 142 Potassium Level 3.5 Chloride Level 105 Carbon Dioxide Level 24.8 Anion Gap 12 Estimat Glomerular Filtration Rate 13 Date/Time Source Procedure Growth Status 07/02/17 00:15 Blood Peripheral Aerobic Blood Culture - Preliminary NO GROWTH IN 4 DAYS Resulted 07/02/17 00:15 Blood Peripheral Anaerobic Blood Culture - Preliminary NO GROWTH IN 4 DAYS Resulted 07/03/17 12:30 Sputum Endotracheal Gram Stain - Final Complete 07/03/17 12:30 Sputum Culture - Final S. Aureus Mrsa Complete 07/02/17 05:15 Urine Clean Catch Urine Culture - Final Complete Nakul Romo MD Jul 07, 2017 06:42
[2017-07-07] MEDS: CHLORHEXIDINE 0.12% (ORAL KIT) 15 ML CUP MT SCH (07:32)
[2017-07-07] MEDS: CARVEDILOL 6.25 MG TAB PO SCH ×2 (09:00→10:17)
[2017-07-07] MEDS: FUROSEMIDE 100 MG/10 ML VIAL IV PUSH SCH (09:04)
[2017-07-07] MEDS: LEVOFLOXACIN/DEXTROSE 250 MG/50 ML IV SCH (09:04)
[2017-07-07] MEDS: SODIUM CHLORIDE 0.9% FLUSH 10 ML FLUSH IV FLUSH SCH (09:05)
[2017-07-07] MEDS: FAMOTIDINE 20 MG/2 ML VIAL IV PUSH SCH (09:05)
[2017-07-07] MEDS: ASPIRIN 81 MG CHEW TAB OG-TUBE SCH (09:06)
[2017-07-07] MEDS: CALCIUM ACETATE 667 MG CAP PO SCH (09:06)
[2017-07-07] MEDS: LINEZOLID 600 MG TAB PO SCH (09:06)
--- NOTE | 2017-07-07 09:44 | HHI.CCPN ---
Subjective Remarks/Hospital Course This is an 86-year-old female with a history of breast cancer status post right mastectomy, PE in 2010, who presented overnight with shortness of breath was found to have an elevated troponin at 1.89, BNP of 3291, creatinine 1.9, sodium 136, WBCs 12,000. She was admitted for workup of her shortness of breath, possible heart failure. To my knowledge and brief review of medical records she does not have a history of heart failure. This morning she had sudden acute change in mental status. Stroke alert was called. At the same time, should increasing oxygen requirement. When I evaluated the patient, she was obtunded with agonal respirations. I emergently intubated patient. We went down for stat CT head which was negative for acute bleed. We then proceeded for MRI/MRA of the brain. I did perform + critical care ultrasound which demonstrated severe left ventricular systolic dysfunction, preserved RV function , no pericardial effusion, dilated IVC without respiratory variation. The patient does have a history of prior PE, is currently on a heparin drip for possible NSTEMI, given her preserved RV function, is unlikely that massive PE has caused her acute decline. Given her elevated creatinine, we will avoid pulmonary angiogram at this time. Due to the patient's critical condition, no additional information is available from her. Due to the emergent nature of the consult, a complete review of the medical record was unavailable to me. 07/03 Patient is intubated and sedated with Fentanyl and Versed drips. On Heparin drip. Afebrile. 07/04 Patient remains intubated, sedated with Versed and Fentanyl drips. Afebrile.On Heparin drip. 07/05 Patient remains intubated and sedated. On Fentanyl, Precedex and Heparin drips. 07/06 No events overnight. On Precedex and Fentanyl infusion . Afebrile. renal function is worse today with Cr: 3.59 from 3.22 and UOP: 825ml in 24 hrs 07/07 Patient remains intubated and on Diprivan, fentanyl and Precedex drips for sedation. Afebrile. Cr: 3.44 today. On Heparin drip. Objective Vital Signs Date Time Temp Pulse Resp B/P (MAP) Pulse Ox O2 Delivery O2 Flow Rate FiO2 07/07/17 07:47 97 30 07/07/17 06:00 66 2/9/18 04:00 98.2 12 101/52 (68) 07/06/17 08:49 Ventilator Intake and Output 07/07/17 07/07/17 07/08/17 08:00 16:00 00:00 Intake Total 1124.2 ml Output Total 450 ml Balance 674.2 ml Result Diagram: 07/07/17 0320 07/07/17 0320 Other Results Laboratory Tests Test 07/07/17 03:20 07/07/17 09:04 White Blood Count 9.7 TH/MM3 Red Blood Count 4.05 MIL/MM3 Hemoglobin 13.4 GM/DL Hematocrit 40.1 % Mean Corpuscular Volume 99.0 FL Mean Corpuscular Hemoglobin 33.2 PG Mean Corpuscular Hemoglobin Concent 33.5 % Red Cell Distribution Width 13.7 % Platelet Count 165 TH/MM3 Mean Platelet Volume 10.5 FL Neutrophils (%) (Auto) 88.7 % Lymphocytes (%) (Auto) 6.9 % Monocytes (%) (Auto) 4.3 % Eosinophils (%) (Auto) 0.0 % Basophils (%) (Auto) 0.1 % Neutrophils # (Auto) 8.6 TH/MM3 Lymphocytes # (Auto) 0.7 TH/MM3 Monocytes # (Auto) 0.4 TH/MM3 Eosinophils # (Auto) 0.0 TH/MM3 Basophils # (Auto) 0.0 TH/MM3 CBC Comment DIFF FINAL Differential Comment Blood Urea Nitrogen 113 MG/DL Creatinine 3.44 MG/DL Random Glucose 192 MG/DL Total Protein 5.1 GM/DL Albumin 2.4 GM/DL Calcium Level 7.5 MG/DL Alkaline Phosphatase 39 U/L Aspartate Amino Transf (AST/SGOT) 19 U/L Alanine Aminotransferase (ALT/SGPT) 21 U/L Total Bilirubin 0.2 MG/DL Sodium Level 142 MEQ/L Potassium Level 3.5 MEQ/L Chloride Level 105 MEQ/L Carbon Dioxide Level 24.8 MEQ/L Anion Gap 12 MEQ/L Estimat Glomerular Filtration Rate 13 ML/MIN Activated Partial Thromboplast Time 66.9 SEC Imaging Last Impressions Chest X-Ray 07/04/17 0600 Signed Impressions: Service Date/Time: Tuesday, July 04, 2017 03:18 - CONCLUSION: 1. Slight increased right basilar opacity representing either atelectasis, consolidation , and/or effusion. 2. Mild increased atelectasis or consolidation at the left lung base. Dante Montes MD Abdomen/Pelvis CT 07/04/17 0000 Signed Impressions: Service Date/Time: Tuesday, July 04, 2017 16:27 - CONCLUSION: 1. Uncomplicated colonic diverticulosis. 2. 2.8 cm hyperdense exophytic lesion arising from the atrophic left kidney consistent with hyperdense cyst or possible solid lesion. 3. Probable sludge within the gallbladder. 4. Degenerative changes and scoliosis of the thoracolumbar spine. 5. Small bilateral pleural effusions. Abdelrahman Pritchard MD Renal Ultrasound 07/03/17 0000 Signed Impressions: Service Date/Time: Monday, July 03, 2017 09:38 - CONCLUSION: Medical renal disease on the right. Nonvisualization of the left kidney. Whether this reflects agenesis or atrophy is uncertain. Wilfredo Ibrahim MD Head Magnetic Resonance Angiography 07/02/17 0000 Signed Impressions: Service Date/Time: Sunday, July 02, 2017 09:06 - CONCLUSION: 1. No large vessel stenosis or aneurysm. 2. Normal variants as described above. Keith Kurtz MD Head CT 07/02/17 0000 Signed Impressions: Service Date/Time: Sunday, July 02, 2017 08:47 - CONCLUSION: Right basal ganglia lacunar infarct, indeterminate age. Otherwise unremarkable CT brain. Keith Kurtz MD Brain MRI 07/02/17 0000 Signed Impressions: Service Date/Time: Sunday, July 02, 2017 09:06 - CONCLUSION: 1. Old right-sided lacunar infarct versus prominent vascular channel. 2. Nonspecific white matter changes likely chronic ischemic small vessel vasculopathy with similar changes also noted within the brainstem and left thalamus. Keith Kurtz MD Objective Remarks GENERAL: Patient is 86 yo intubated and sedated SKIN: Warm and dry. HEAD: Normocephalic. EYES: No scleral icterus. No injection or drainage. NECK: Supple, trachea midline. No JVD or lymphadenopathy. CARDIOVASCULAR: Regular rate and rhythm without murmurs, gallops, or rubs. RESPIRATORY: Breath sounds equal bilaterally. No accessory muscle use. GASTROINTESTINAL: Abdomen soft, non-tender, nondistended. MUSCULOSKELETAL: No cyanosis, or edema. BACK: Nontender without obvious deformity. No CVA tenderness. Neuro: Sedated A/P Assessment and Plan Plan by systems: Neurologic: Metabolic encephalopathy - CT head 07/02: Negative for acute change, old right basal ganglia stroke - MRI/MRA brain 07/02: No acute findings -EEG 07/02: Mod. encephalopathy - On Fentanyl/Diprivan drips for sedation and vent synchrony. Daily sedation vacation - Precedex drip to facilitate with weaning trials. -Neuro is following- Dr. Burns. Respiratory: Acute hypoxic and hypercarbic respiratory failure - Head of bed elevated -Continue with vents support keep sat >92% -Bronchodilators, ICU vent bundle, SBT daily as mireya. Cardiovascular: NSTEMI CHF- Acute systolic Cardiomyopathy Monitor HR and HAMMAD keep MAP>65mmHg - cardiology is following- Dr. Beltre -Echo showed EF 30-35%, Global hypokinesis - Coreg 6.25mg BID and ASA 81mg daily continue with heparin drip. Renal: Acute kidney injury superimposed on chronic renal insufficiency, unknown stage - Monitor renal function, I/O's, avoid nephrotoxins -Cr: 3.44 today from 3.59 UOP:1150 ml in 24 hrs - real US: medical renal disease on right, left kidney not visualized, -CT abd/pelvis: Uncomplicated colonic diverticulosis. 2.8 cm hyperdense exophytic lesion arising from the atrophic left kidney consistent with hyperdense cyst or possible solid lesion. Probable sludge within the gallbladder -Lasix 40mg IV daily- Renal is following- Dr. Crouch GI: Acute protein calorie malnutrition- moderate -tube feeds- Nepro @ 40ml/hr - on Pepcid for GI prophylaxis Heme History of PE in 2010 - On heparin drip - Monitor CBC, coags ID UTI Leukocytosis MRSA pneumonia Continue Levaquin, Zyvox and monitor for sign of infections ( Fever, WBC) WBC is trending down 2/5 sputum cx: MRSA 2 nasal washing negative for Influenza. Urine cx: Group D enterococcus Endocrine: Hyperglycemia of critical illness -- SSI with accuchecks Prophylaxis: GI Prophylaxis n Pepcid DVT Prophylaxis -- SCDs Heparin drip Lines: Peripheral IVs [facility] Palliative care is following. Family met w palliative care and they elected to proceed with withdraw life support and transition to comfort care. Poor prognosis given resp failure, encephalopathy, cardiomyopathy and worsening renal function. Level 3 Evonne Hunt MD Jul 07, 2017 09:44
--- NOTE | 2017-07-07 10:20 | HHI.NPPN ---
Subjective Renal Failure: Acute Interval History Remains intubated, less agitated. On propofol and fentanyl, also heparin. Son in law at bedside. Creatinine is better but BUN is higher. Urine output improved. (Nely Mustafa) Review of Systems General General Remarks unable to obtain (Nely Mustafa) Objective Data Data 07/07/17 07/08/17 19:00 07:00 Intake Total 49.2 ml Balance 49.2 ml Intake IV Total 49.2 ml Vital Signs Date Time Temp Pulse Resp B/P (MAP) Pulse Ox O2 Delivery O2 Flow Rate FiO2 07/07/17 07:47 97 30 07/07/17 06:00 66 07/07/17 04:45 97 30 07/07/17 04:00 98.2 51 12 101/52 (68) 100 07/07/17 04:00 30 07/07/17 04:00 51 07/07/17 02:00 53 07/07/17 01:35 98 30 07/07/17 00:00 30 07/07/17 00:00 98.6 53 12 101/51 (68) 97 07/07/17 00:00 53 07/06/17 22:10 96 30 07/06/17 22:00 81 07/06/17 20:38 98 30 07/06/17 20:30 30 07/06/17 20:00 30 07/06/17 20:00 98.4 63 12 110/54 (72) 96 07/06/17 20:00 63 07/06/17 18:00 66 07/06/17 16:12 95 30 07/06/17 16:00 30 07/06/17 16:00 73 07/06/17 16:00 99.1 73 12 139/65 (89) 95 07/06/17 14:00 105 07/06/17 12:00 30 07/06/17 12:00 80 07/06/17 12:00 98.0 80 14 159/72 (101) 93 07/06/17 11:32 97 30 (Nely Mustafa) -: 07/07/17 0320 07/07/17 0320 Tubes & Lines: [facility] Tubes & Lines Comment fentanyl, propofol, heparin (Nely Mustafa) Physical Exam General Appearance: No Acute Distress Appearance Remarks sedated on vent, ETT in place (Nely MustafaP) Eyes Eye Exam: Pupils Equal (Nely MustafaP) Throat Throat Exam: Oral Mucosa Pablo Pena & Moist (Nely Mustafa ARCHEOLOGY PROFESSOR) Pulmonary Resp Exam: No Distress, Rhonchi Resp Remarks expiratory rhonchi (Nely Mustafa ARCHEOLOGY PROFESSOR) Cardiology CV Exam: Regular, Normal Sinus Rhythm (Nely Mustafa ARCHEOLOGY PROFESSOR) Gastrointestinal/Abdomen GI Exam: Soft, Non-Tender, Bowel Sounds Present (Nely Mustafa ARCHEOLOGY PROFESSOR) Musculoskeletal MS Exam: Joints Intact, Normal Tone, Unable to Ambulate (Nely MustafaP) Integumentary Skin Exam: Clear, Warm, Dry, Intact (Nely Mustafa ARCHEOLOGY PROFESSOR) Extremeties Extremities Exam: No Edema, Pedal Pulses Palpable (Nely Mustafa) Neurologic Neuro Exam: Unresponsive, Sedated (Nely MustafaP) VTE Prophylaxis Meds: Heparin (Nely Mustafa ARCHEOLOGY PROFESSOR) Assessment/Plan Discussed Condition With: Relative Assessment Summary: LEE/Acute Renal Failure, Acute Tubular Necrosis, CHF, CKD Stage III, CKD Stage IV Problem List: (1) Acute renal failure ICD Codes: N17.9 - Acute kidney failure, unspecified Plan: She most likely has underlying CKD, in 2010 her creatinine was 1.6-1.7, GFR 28-30, Stage 3-4. Also has left renal atrophy LEE may be due to CHF exacerbation and increased renal vein pressure, also NSTEMI She has poor renal function. Creatinine slightly better but BUN is 113, may be due to steroids. She is making urine. On Lasix once daily Need to clarify goals. Plan family meeting with palliative care. She may not do well on dialysis given overall condition. Her relative at the bedside works for [employer] and is familiar with dialysis care, criteria, and invasiveness of treatment. Repeat labs tomorrow, we will dialyze if the family wishes Maintain MAP > 65mmHg. Monitor drug levels when appropriate. (2) CHF (congestive heart failure) ICD Codes: I50.9 - Heart failure, unspecified Status: Acute Plan: Echo shows EF 30-35% Follow fluid status, I/O Diuresis as above, titrate as needed Achieve negative fluid balance Avoid IVF On 30% FiO2 currently, CPAP and vent weening as tolerated and per protocol (3) Non-ST elevation [place] (NSTEMI) ICD Codes: I21.4 - Non-ST elevation (NSTEMI) myocardial infarction Status: Acute Plan: Cardiology following, troponin trending down On Heparin gtt, appreciate further recommendations (4) Hypertension ICD Codes: I10 - Essential (primary) hypertension Plan: Monitor blood pressure On coreg (5) Pneumonia ICD Codes: J18.9 - Pneumonia, unspecified organism Plan: On Levaquin and Zyvox. Does not tolerate CPAP. Plan (Nely Mustafa) Plan patient was seen and examined. Non oliguric. Creatinine is slightly better. No immediate need for dialysis. Continue Lasix. Avoid nephrotoxins. Family deciding on level of care. (Danie Crouch MD) Nely Mustafa Jul 07, 2017 10:20 Danie Crouch MD Jul 07, 2017 15:24
[2017-07-07] MEDS ORDERED: fentaNYL DRIP 250 ML IV PRN (14:00)
[2017-07-07] MEDS ORDERED: LORazepam 2 MG/ML VIAL IV PUSH ONE ×2 (14:00→14:30)
[2017-07-07] MEDS ORDERED: HYOSCYAMINE 0.5 MG/ML AMP IV PUSH ONE (14:00)
[2017-07-07] MEDS ORDERED: BISACODYL 10 MG SUPP RECTAL PRN (14:30)
[2017-07-07] MEDS ORDERED: LORazepam 2 MG/ML VIAL IV PUSH PRN ×3 (14:30)
[2017-07-07] MEDS ORDERED: HYOSCYAMINE 0.5 MG/ML AMP IV PUSH PRN (14:30)
[2017-07-07] MEDS ORDERED: FUROSEMIDE 20 MG/2 ML VIAL IV PUSH PRN (14:30)
[2017-07-07] MEDS ORDERED: ACETAMINOPHEN 650 MG SUPP RECTAL PRN (14:30)
--- NOTE | 2017-07-07 15:11 | HHI.HCPN ---
Reason for visit a. To assist with evaluation and management of symptoms including: agitation , dyspnea, pain b. To assist medical decision maker(s) with: better understanding of current medical conditions; weighing benefits/burdens of medical treatment options; making medical treatment decisions. . Subjective/Interval History Ms. Alvarez is an 86-year-old female who presented to [facility] ED on 2017 for evaluation of hypoxia after her oxygen saturations were noted to be low while she was being seen at a local urgent care. She was subsequently admitted with NSTEMI, CHF and COPD exacerbation, now with acute kidney injury. Pulmonology, cardiology and nephrology are following. Follow-up visit today for symptom management and clarification of medical treatment goals. Patient remains intubated on mechanical ventilation in the intensive care unit; continues to fail CPAP trials. On Propofol, Fentanyl and Precedex infusion for sedation and vent synchrony. = CT head 07/02/17 revealed old right basal ganglia stroke = MRI/MRA brain 07/02/17 showed no acute abnormalities = EEG 07/02/17 with moderate encephalopathy Follow-up chest x-ray on 07/04/2017 showing slight increase in right basilar opacity representing either atelectasis, consolidation and/or effusion. Mild increased atelectasis versus consolidation at the left lung base. On antibiotics for MRSA pneumonia. Renal functioning continues to deteriorate. BUN: 113, creatinine 3.44, GFR 13. UOP: 1150 mL in the previous [address] abd/pelvis revealed uncomplicated colonic diverticulosis. 2.8 cm hyperdense exophytic lesion arising from the atrophic left kidney consistent with hyperdense cyst or possible solid lesion; probable sludge within the gallbladder. Nephrology (Dr. Crouch) following. Patient requires initiation of hemodialysis goals remain aggressive. Palliative care met with family who has decided not to pursue further diagnostic procedures or aggressive interventions. Patient's family was able to find the patient's written advanced directives which was completed on 2009 which designates daughter (Kendy Dunbar) as the healthcare surrogate decision maker and son (Zeyad Rivera) as the alternate health care surrogate. Patient also completed a living will which states that she does not wish for her dying to be artificially prolonged if she is found to have a terminal condition, and end-stage condition or if she was in a persistent vegetative state. If her attending and another consulting physician determined there is no reasonable medical probability of her recovery from such condition, she directs a life-prolonging procedures be withheld or withdrawn when the application of such procedures which serve to prolong artificially the process of dying, and that she be permitted to naturally with only the administration of medication or the performance of any medical procedure deemed necessary to provide her with comfort in care or to alleviate pain. . Advance Directives Advance Directive Specifics Date completed: 01/14/2010 Health Care Surrogate(s): Patient is not capacitated to participate in medical decision making at this time; she will not regain capacity. Daughter (Kendy Dunbar) has been designated as the healthcare surrogate decision maker and son (Zeyad Rivera) is designated as the the alternate health care surrogate. . Documented care wishes: Patient's family was able to find the patient's written advanced directives completed 01/14/2010 in which the patient indicates she does not wish for her dying to be artificially prolonged if she is found to have a terminal condition, and end- stage condition or if she was in a persistent vegetative state. If her attending and another consulting physician determined there is no reasonable medical probability of her recovery from such condition, she directs a life-prolonging procedures be withheld or withdrawn when the application of such procedures which serve to prolong artificially the process of dying, and that she be permitted to naturally with only the administration of medication or the performance of any medical procedure deemed necessary to provide her with comfort in care or to alleviate pain. . Significant change in goals: Transition to comfort focused care; withdrawal from artificial life support . Objective Vital Signs Date Time Temp Pulse Resp B/P (MAP) Pulse Ox O2 Delivery O2 Flow Rate FiO2 07/07/17 12:00 97.8 88 7 99/52 (68) 94 07/07/17 12:00 30 07/07/17 12:00 88 07/07/17 11:33 30 07/07/17 11:23 93 30 07/07/17 10:00 90 07/07/17 08:00 97.6 53 12 94/54 (67) 98 07/07/17 08:00 53 07/07/17 08:00 30 07/07/17 07:47 97 30 07/07/17 06:00 66 07/07/17 04:45 97 30 07/07/17 04:00 98.2 51 12 101/52 (68) 100 07/07/17 04:00 30 07/07/17 04:00 51 07/07/17 02:00 53 07/07/17 01:35 98 30 07/07/17 00:00 30 07/07/17 00:00 98.6 53 12 101/51 (68) 97 07/07/17 00:00 53 07/06/17 22:10 96 30 07/06/17 22:00 81 07/06/17 20:38 98 30 07/06/17 20:30 30 07/06/17 20:00 30 07/06/17 20:00 98.4 63 12 110/54 (72) 96 07/06/17 20:00 63 07/06/17 18:00 66 07/06/17 16:12 95 30 07/06/17 16:00 30 07/06/17 16:00 73 07/06/17 16:00 99.1 73 12 139/65 (89) 95 Intake & Output 07/07/17 07/07/17 07:00 19:00 Intake Total 1075 ml 49.2 ml Output Total 450 ml Balance 625 ml 49.2 ml Intake IV Total 445 ml 49.2 ml Tube Feeding 480 ml Tube Irrigant 150 ml Output Urine Total 450 ml # Bowel Movements 3 . Physical Exam CONSTITUTIONAL/GENERAL: This is an elderly, female patient currently intubated on mechanical ventilation TUBES/LINES/DRAINS: PIV x3, Collier SKIN: Ecchymoses on upper extremities. No wounds seen anteriorly. Skin temperature appropriate. Not diaphoretic. HEAD: Atraumatic. Normocephalic. EYES: Pupils equal and round and reactive. Extraocular motions intact. No scleral icterus. No injection or drainage. Fundi not examined. ENT: Nose without bleeding or purulent drainage. Oral mucosa dry. NECK: Trachea midline. Supple, nontender. No palpable thyroid enlargement or nodularity. CARDIOVASCULAR: Regular rate and rhythm without murmurs, gallops, or rubs. No JVD. Peripheral pulses symmetric. RESPIRATORY/CHEST: Intubated on mechanical ventilation-failing spontaneous breathing trials. Breath sounds diminished bilaterally. GASTROINTESTINAL: Abdomen soft, non-tender, nondistended. No hepato-splenomegaly , or palpable masses. No guarding. Bowel sounds present. GENITOURINARY: Without palpable bladder distension. Collier catheter in place. MUSCULOSKELETAL: Extremities without clubbing, cyanosis, or edema. No mottling or clubbing. LYMPHATICS: No palpable cervical or supraclavicular adenopathy. NEUROLOGICAL: Sedated on on Fentanyl, Propofol and Precedex drips. Ongoing agitation. Does not respond to questions; not follow commands PSYCHIATRIC: Unable to assess given patient's clinical condition. . Diagnostic Tests Laboratory Laboratory Tests Test 07/05/17 04:40 07/06/17 03:40 07/07/17 03:20 07/07/17 09:04 White Blood Count 8.9 TH/MM3 (4.0-11.0) 8.8 TH/MM3 (4.0-11.0) 9.7 TH/MM3 (4.0-11.0) Red Blood Count 3.99 MIL/MM3 (4.00-5.30) 4.08 MIL/MM3 (4.00-5.30) 4.05 MIL/MM3 (4.00-5.30) Hemoglobin 13.4 GM/DL (11.6-15.3) 13.6 GM/DL (11.6-15.3) 13.4 GM/DL (11.6-15.3) Hematocrit 39.5 % (35.0-46.0) 40.2 % (35.0-46.0) 40.1 % (35.0-46.0) Mean Corpuscular Volume 99.0 FL (80.0-100.0) 98.5 FL (80.0-100.0) 99.0 FL (80.0-100.0) Mean Corpuscular Hemoglobin 33.5 PG (27.0-34.0) 33.4 PG (27.0-34.0) 33.2 PG (27.0-34.0) Mean Corpuscular Hemoglobin Concent 33.8 % (32.0-36.0) 33.9 % (32.0-36.0) 33.5 % (32.0-36.0) Red Cell Distribution Width 13.6 % (11.6-17.2) 13.5 % (11.6-17.2) 13.7 % (11.6-17.2) Platelet Count 193 TH/MM3 (150-450) 184 TH/MM3 (150-450) 165 TH/MM3 (150-450) Mean Platelet Volume 10.5 FL (7.0-11.0) 10.8 FL (7.0-11.0) 10.5 FL (7.0-11.0) Neutrophils (%) (Auto) 93.7 % (16.0-70.0) 91.4 % (16.0-70.0) 88.7 % (16.0-70.0) Lymphocytes (%) (Auto) 3.2 % (9.0-44.0) 3.6 % (9.0-44.0) 6.9 % (9.0-44.0) Monocytes (%) (Auto) 3.0 % (0.0-8.0) 5.0 % (0.0-8.0) 4.3 % (0.0-8.0) Eosinophils (%) (Auto) 0.0 % (0.0-4.0) 0.0 % (0.0-4.0) 0.0 % (0.0-4.0) Basophils (%) (Auto) 0.1 % (0.0-2.0) 0.0 % (0.0-2.0) 0.1 % (0.0-2.0) Neutrophils # (Auto) 8.3 TH/MM3 (1.8-7.7) 8.1 TH/MM3 (1.8-7.7) 8.6 TH/MM3 (1.8-7.7) Lymphocytes # (Auto) 0.3 TH/MM3 (1.0-4.8) 0.3 TH/MM3 (1.0-4.8) 0.7 TH/MM3 (1.0-4.8) Monocytes # (Auto) 0.3 TH/MM3 (0-0.9) 0.4 TH/MM3 (0-0.9) 0.4 TH/MM3 (0-0.9) Eosinophils # (Auto) 0.0 TH/MM3 (0-0.4) 0.0 TH/MM3 (0-0.4) 0.0 TH/MM3 (0-0.4) Basophils # (Auto) 0.0 TH/MM3 (0-0.2) 0.0 TH/MM3 (0-0.2) 0.0 TH/MM3 (0-0.2) CBC Comment DIFF FINAL DIFF FINAL DIFF FINAL Differential Comment Activated Partial Thromboplast Time 53.3 SEC (24.3-30.1) 64.3 SEC (24.3-30.1) 66.9 SEC (24.3-30.1) Blood Urea Nitrogen 88 MG/DL (7-18) 105 MG/DL (7-18) 113 MG/DL (7-18) Creatinine 3.22 MG/DL (0.50-1.00) 3.59 MG/DL (0.50-1.00) 3.44 MG/DL (0.50-1.00) Random Glucose 155 MG/DL (74-106) 166 MG/DL (74-106) 192 MG/DL (74-106) Calcium Level 7.8 MG/DL (8.5-10.1) 7.9 MG/DL (8.5-10.1) 7.5 MG/DL (8.5-10.1) Phosphorus Level 6.3 MG/DL (2.5-4.9) 5.5 MG/DL (2.5-4.9) Magnesium Level 2.5 MG/DL (1.5-2.5) Sodium Level 138 MEQ/L (136-145) 139 MEQ/L (136-145) 142 MEQ/L (136-145) Potassium Level 3.9 MEQ/L (3.5-5.1) 3.3 MEQ/L (3.5-5.1) 3.5 MEQ/L (3.5-5.1) Chloride Level 102 MEQ/L (98-107) 102 MEQ/L (98-107) 105 MEQ/L (98-107) Carbon Dioxide Level 24.3 MEQ/L (21.0-32.0) 24.7 MEQ/L (21.0-32.0) 24.8 MEQ/L (21.0-32.0) Anion Gap 12 MEQ/L (5-15) 12 MEQ/L (5-15) 12 MEQ/L (5-15) Estimat Glomerular Filtration Rate 14 ML/MIN (>89) 12 ML/MIN (>89) 13 ML/MIN (>89) Total Protein 5.1 GM/DL (6.4-8.2) Albumin 2.4 GM/DL (3.4-5.0) Alkaline Phosphatase 39 U/L (45-117) Aspartate Amino Transf (AST/SGOT) 19 U/L (15-37) Alanine Aminotransferase (ALT/SGPT) 21 U/L (10-53) Total Bilirubin 0.2 MG/DL (0.2-1.0) . Result Diagram: 07/07/17 0320 07/07/17 0320 Procedures 07/02/17: Intubation 07/02/17: NGT placed . Assessment and Plan Disease Oriented Problem List: (1) Non-ST elevation DE (NSTEMI) (2) CHF (congestive heart failure) (3) Acute exacerbation of COPD with asthma (4) Encephalopathy, metabolic (5) Cardiomyopathy (6) Acute renal failure (7) Hypertension Symptom Scale: (1) Agitation (2) Shortness of breath Pertinent Non-Medical Issues Psychosocial: Patient was born in [place]. She went to college in [place] and progressively worked her way south. She was to her first for an unknown length of time. Together they had 2 children (Dotty and Zeyad) . Dotty states her parents got when she was about 5 years old. Patient's daughter states her mom had a very brief second marriage. 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 Spiritual: Anabaptism olive Legal: Per [place] statutes, in the absence of written advanced directives healthcare proxy decision-making falls to the patient's 2 children Ethical issues impacting care: No known ethical issues impacting care at this time. . Important Contacts Sonali Dunbar, daughter: [phone] Zeyad and Yumi Torres, family/other: [phone] or [phone] . Prognosis Patient's is an 86-year-old female admitted with an NSTEMI, CHF and COPD exacerbation. She remains intubated on mechanical ventilation; she is not tolerating CPAP trials. She remains extremely agitated on Fentanyl and Precedex drips. Now with worsening renal functioning; will likely need to make a decision on whether or not to proceed with hemodialysis in upcoming days. Given patient's advanced age and multi-organ dysfunction, she is high for ongoing decline and consultations. . Code Status: Full Code Plan * NO CODE-DNR/DNI * Decision-making: Patient is not capacitated to participate in medical decision making at this time; she will not regain capacity.. Daughter ( Kenyd Dunbar) has been designated as the healthcare surrogate decision maker and son (Zeyad Rivera) is designated as the the alternate health care surrogate. * Palliative care met with family who has decided not to pursue further diagnostic procedures or aggressive interventions. Patient's family was able to find the patient's written advanced directives completed 01/14/2010 in which the patient indicates she does not wish for her dying to be artificially prolonged if she is found to have a terminal condition, and end- stage condition or if she was in a persistent vegetative state. If her attending and another consulting physician determined there is no reasonable medical probability of her recovery from such condition, she directs a life-prolonging procedures be withheld or withdrawn when the application of such procedures which serve to prolong artificially the process of dying, and that she be permitted to naturally with only the administration of medication or the performance of any medical procedure deemed necessary to provide her with comfort in care or to alleviate pain. * Discussed patient with bedside nurse (Sergei) and nephrology DIRECTOR OF ORTHOPEDICS (Nely Mustafa) and Dr. Moy. * Signed exhibits B and C have been placed on the patient's chart * Comfort medication orders have been placed in the computer. * Anticipatory guidance provided to the patient's family regarding the withdrawal of artificial life support. Mayra Barreto Jul 07, 2017 15:10
[2017-07-07] MEDS ORDERED: LORazepam 2 MG/ML VIAL IV PUSH SCH (16:00)
== END 2017-07-07 20:23 | disposition expired | DRG 207 ==
LOC: NEPC 23:31 → NEDA 07-02 02:05 → HCPC 07-02 04:36 → HCVI 07-02 08:29 → HIMN 07-03 11:00
PROVIDERS: ADMIT Internal Medicine Critical Care Medicine; ATTEND Internal Medicine Critical Care Medicine
PROC: 5A1955Z Respiratory Ventilation, Greater than 96 Consecutive Hours (ICD-10-PCS; principal; 2017-07-02)
PROC: 0BH17EZ Insertion of Endotracheal Airway into Trachea, Via Natural or Artificial Opening (ICD-10-PCS; 2017-07-02)
PROC: 3E0F7GC Introduction of Other Therapeutic Substance into Respiratory Tract, Via Natural or Artificial Opening (ICD-10-PCS; 2017-07-02)
PROC: 5A09357 Assistance with Respiratory Ventilation, Less than 24 Consecutive Hours, Continuous Positive Airway Pressure (ICD-10-PCS; 2017-07-02)
DX: J96.01 Acute respiratory failure with hypoxia (principal); I21.4 Non-ST elevation (NSTEMI) myocardial infarction; J15.212 Pneumonia due to Methicillin resistant Staphylococcus aureus; N17.0 Acute kidney failure with tubular necrosis; I50.21 Acute systolic (congestive) heart failure; G93.41 Metabolic encephalopathy; N18.4 Chronic kidney disease, stage 4 (severe); J44.0 Chronic obstructive pulmonary disease with (acute) lower respiratory infection; J45.901 Unspecified asthma with (acute) exacerbation; E83.39 Other disorders of phosphorus metabolism; I13.0 Hypertensive heart and chronic kidney disease with heart failure and stage 1 through stage 4 chronic kidney disease, or unspecified chronic kidney disease; Z99.11 Dependence on respirator [ventilator] status; J44.1 Chronic obstructive pulmonary disease with (acute) exacerbation; N17.9 Acute kidney failure, unspecified; E44.0 Moderate protein-calorie malnutrition; N39.0 Urinary tract infection, site not specified; J96.02 Acute respiratory failure with hypercapnia; M19.90 Unspecified osteoarthritis, unspecified site; F32.9 Major depressive disorder, single episode, unspecified; E03.9 Hypothyroidism, unspecified; K43.9 Ventral hernia without obstruction or gangrene; R73.9 Hyperglycemia, unspecified; I25.5 Ischemic cardiomyopathy; M10.9 Gout, unspecified; Z86.711 Personal history of pulmonary embolism; Z85.3 Personal history of malignant neoplasm of breast; Z85.42 Personal history of malignant neoplasm of other parts of uterus; Z87.891 Personal history of nicotine dependence; Z86.73 Personal history of transient ischemic attack (TIA), and cerebral infarction without residual deficits; Z79.01 Long term (current) use of anticoagulants; Z82.49 Family history of ischemic heart disease and other diseases of the circulatory system; K57.30 Diverticulosis of large intestine without perforation or abscess without bleeding; N28.1 Cyst of kidney, acquired; Z51.5 Encounter for palliative care
CPT/HCPCS: 31500; 36600; 70450; 70544; 70551; 71045; 74176; 76775; 76937; 80048; 80053; 81001; 82550; 82552; 82805; 82948; 83735; 83880; 84100; 84484; 85025; 85384; 85610; 85730; 86403; 86850; 86900; 86901; 87040; 87070; 87077; 87086; 87147; 87186; 87205; 87804; 93005; 93306; 94002; 94003; 94640; 94664; 95819; 96374; J1630; J1644; J1940; J1956; J1980; J2060; J2250; J2370; J2920; J2930; J3010; J3480; J7050; J7060